=== PATIENT | female | born 1940 | race American Indian/Alaskan Native ===

== ENCOUNTER 2016-12-20 06:10 | Day surgery (SDC) | payer MEDICARE, BC ==
[2016-12-09 09:53] VITALS: BMI 24.7
[2016-12-20 07:01] LABS: INR 1.03 (0.93-1.08); PARTIAL THROMBOPLASTIN TIME 25.9 Seconds (23.7-30.8); PROTHROMBIN TIME 11.1 Seconds (9.9-11.8)
[2016-12-20 07:02] LABS: CALCIUM 10.2 mg/dL (8.4-10.5)
[2016-12-20] MEDS ORDERED: Lidocaine 1% Inj (20ml) ONE ×2 (07:26→08:06)
[2016-12-20] MEDS ORDERED: Bupivacaine 0.5% Inj(30mL) ONE (07:26)
[2016-12-20] MEDS ORDERED: Midazolam 2 MG/2 ML VIAL ONE ×2 (08:00→08:46)
[2016-12-20] MEDS ORDERED: Propofol 10 mg/ml Inj (20 ML) ONE (08:06)
[2016-12-20] MEDS ORDERED: HYDROmorphone 0.5 mg/0.5 ml ISec IVP PRN (09:15)
--- NOTE | 2016-12-20 09:19 | PCM.SURG1 ---
Surgeon's Initial Post Op Note - Surgeon's Notes Surgeon: Misael Tape Folding Machine Operator: Yohana Pre-Operative Diagnosis: Non-functional peritoneal dialysis catheter Operative Findings: Tunneled peritoneal dialysis catheter Post-Operative Diagnosis: same Operation Performed: Removal of peritoneal dialysis catheter Specimen/Specimens Removed: n/a Estimated Blood Loss: EBL {In ML}: 5 Date of Surgery/Procedure: 12/20/16 Time of Surgery/Procedure: 08:00
[2016-12-20 10:15] VITALS: PULSE 70
[2016-12-20 10:35] VITALS: BP 151/78; RESP 18; TEMP 97.6; O2SAT 99
--- NOTE | 2017-01-02 04:11 | OP ---
PROCEDURE DATE: 12/20/2016 PREOPERATIVE DIAGNOSES: Nonfunctioning peritoneal dialysis catheter and end-stage renal disease. POSTOPERATIVE DIAGNOSES: Nonfunctioning peritoneal dialysis catheter and end-stage renal disease. PROCEDURE PERFORMED: Removal of tunneled peritoneal dialysis catheter. SURGEON: Dr. Douglas. MINERAL ENGINEER: Dr. Muller. TYPE OF ANESTHESIA: MAC and local anesthesia. ANESTHESIA ADMINISTERED BY: Dr. Bearden. ESTIMATED BLOOD LOSS: Minimal. SPECIMEN: Gross specimen of peritoneal dialysis catheter. INDICATIONS: The patient is a 76-year-old female who had a peritoneal dialysis catheter placed for replacement of her hemodialysis catheter. However, subsequently, the patient realized that way of dialyzing did not fit her lifestyle and therefore she went back to the hemodialysis. At this point, the peritoneal dialysis catheter is nonfunctional and therefore needed to be removed. DESCRIPTION OF PROCEDURE: The patient was brought to the operating room and placed on operating room table in a supine position. The patient was connected to EKG, blood pressure, and pulse oximetry monitors. The patient then was prepped and draped in the usual sterile fashion and was given MAC anesthesia. First, a standard time-out procedure took place and everybody in the room agreed as the patient's identity, diagnosis, and procedure to be performed. Using lidocaine mixed with Marcaine, the area of the peritoneal dialysis catheter was infiltrated and the incision was made directly overlying those . Once they were identified and detached from the ingrown tissue, the catheter was then carefully mobilized and removed from the intraabdominal cavity and pulled through completely out through the exit site. Once this was done, the wounds were copiously irrigated and there was excellent hemostasis. The wounds were closed in layers using 3-0 Vicryl for deep fat layer and 3-0 Vicryl for the sub-deep dermal layer. The skin itself was closed using subcuticular stitch of 4-0 Monocryl. Sterile Dermabond dressing was applied to both wounds. Patient tolerated procedure well and there were no complications. Patient was awakened and transferred to recovery room for further observation. Bernabe Douglas MD [facility] # [id number]
== END 2016-12-20 13:15 | disposition home or self-care (01) ==
LOC: SDS 06:10
PROVIDERS: ATTEND General Practice
DX: T85.691A Other mechanical complication of intraperitoneal dialysis catheter, initial encounter (principal); Y84.8 Other medical procedures as the cause of abnormal reaction of the patient, or of later complication, without mention of misadventure at the time of the procedure; I12.0 Hypertensive chronic kidney disease with stage 5 chronic kidney disease or end stage renal disease; N18.6 End stage renal disease
CPT/HCPCS: 36415; 49422; 80048; 85610; 85730; J0690; J1170; J2250; J2405; J2704; J2765; J3010

== ENCOUNTER 2018-09-27 13:23 | Inpatient (IN) | payer MEDICARE, BC ==
[2018-09-27 13:36] VITALS: BMI 21.9
[2018-09-27 14:34] LABS: BASO # 0.04 K/mm3 (0.0-2.0); BASO % 0.9 % (0.0-3.0); EOS # 0.1 (0.0-0.7); EOS % 2.4 % (1.5-5.0); LYMPH # 1.3 (1.2-3.4); LYMPH % 29.2 % (22.0-35.0); MEAN CELL VOLUME 98.7 fl (80.0-105.0); MEAN CORPUSCULAR HEMOGLOBIN 32.3 pg (25.0-35.0); MEAN CORPUSCULAR HGB CONC 32.7 g/dl (31.0-37.0); MEAN PLATELET VOLUME 9.4 fl (7.0-11.0); MONO # 0.4 (0.1-0.6); MONO % 8.6 % (1.0-6.0); RBC 3.1 10^6/uL (3.5-6.1); RED CELL DISTRIBUTION WIDTH 13.3 % (11.5-14.5); WHITE BLOOD COUNT 4.6 10^3/uL (4.5-11.0)
[2018-09-27 14:39] LABS: ALB/GLOB RATIO 1.1 (1.1-1.8); ALBUMIN 4.2 g/dL (3.0-4.8); CALCIUM 9.1 mg/dL (8.4-10.5)
[2018-09-27 14:59] LABS: INR 1.1; PARTIAL THROMBOPLASTIN TIME 30.5 Seconds (26.9-38.3); PROTHROMBIN TIME 12.2 SECONDS (9.4-12.5)
--- NOTE | 2018-09-27 15:19 | RAD ---
Date of service: 09/27/2018 HISTORY: coughing up blood COMPARISON: 05/11/2015 TECHNIQUE: Chest PA and lateral views FINDINGS: LUNGS: There is an infiltrate at the right lung base. Minimal infiltrate at the left lung base. PLEURA: No significant pleural effusion identified. No pneumothorax apparent. CARDIOVASCULAR: No aortic atherosclerotic calcification present. Normal cardiac size. No pulmonary vascular congestion. OSSEOUS STRUCTURES: No significant abnormalities. VISUALIZED UPPER ABDOMEN: Normal. OTHER FINDINGS: None. IMPRESSION: There is an infiltrate at the right lung base. Minimal infiltrate at the left lung base.
[2018-09-27] MEDS ORDERED: cefTRIAXone 1 gm 1 GM/100 ML BAG IVPB STA (15:42)
[2018-09-27] MEDS ORDERED: Azithromycin 500MG/NS 250ml 500 MG/250 ML BAG IVPB STA (15:42)
--- NOTE | 2018-09-27 16:05 | ED PDOC ---
Arrival/HPI - General Chief Complaint: Cough, Cold, Congestion Historian: Patient, Family - History of Present Illness Narrative History of Present Illness (Text): 09/27/18 16:02 Patient is a 77 yo female past medical history of ESRD on dialysis monday, w , monday, complains of coughing up blood for past two weeks. States coughing is "tinged" with blood, reports worse at night and associated with right sided chest/back pain that is worse with movements. No rash. Reports some shortness of breath at night worse over past two weeks. Denies abdominal pain. Denies hematemesis or vomiting. Past Medical History - Infectious Disease Hx of Infectious Diseases: None - Cardiac Hx Hypertension: Yes Hx Pacemaker: No - Pulmonary Hx Respiratory Disorders: Yes - Neurological Hx Paralysis: No - HEENT Hx HEENT Disorder: Yes Hx Cataracts: Yes (right eye) - Renal Hx Renal Disorder: Yes Hx Dialysis: Yes ([facility]) Type of Dialysis Access: R AV Fistula Date of Last Dialysis Treatment: 09/26/18 Hx Renal Failure: Yes - Endocrine/Metabolic Hx Endocrine Disorders: No - Hematological/Oncological Hx Blood Transfusions: No Hx Blood Transfusion Reaction: No - Integumentary Hx Dermatological Disorder: No - Musculoskeletal/Rheumatological Hx Musculoskeletal Disorders: No - Gastrointestinal Hx Gastrointestinal Disorders: No - Genitourinary/Gynecological Hx Genitourinary Disorders: No - Psychiatric Hx Emotional Abuse: No Hx Physical Abuse: No Hx Substance Use: No - Past Surgical History Past Surgical History: Non-Contributing - Surgical History Other/Comment: R AV Fistula for HD - Anesthesia Hx Anesthesia: Yes Hx Anesthesia Reactions: No Hx Malignant Hyperthermia: No - Suicidal Assessment Feels Threatened In Home Enviroment: No Family/Social History Smoking Status: Never Smoked Hx Alcohol Use: No Hx Substance Use: No Hx Substance Use Treatment: No Allergies/Home Meds Allergies/Adverse Reactions: Allergies peanut Allergy (Severe, Verified 07/08/15 07:34) ANAPHYLAXIS Home Medications: Home Meds Medication Instructions Recorded Confirmed amLODIPine [Norvasc] 40 mg PO DAILY 10/21/14 09/27/18 Calcium Acetate [Phoslo] 667 mg PO WM 07/08/15 09/27/18 Multivit-Min/FA/Lycopen/Lutein 1 each PO DAILY 07/08/15 09/27/18 [Centrum Silver Tablet] Clopidogrel [Plavix] 75 mg PO DAILY 12/09/16 09/27/18 Azilsartan Medoxomil [Edarbi] 40 mg PO DAILY 09/27/18 09/27/18 cloNIDine [Catapres] 1 tab PO DAILY 09/27/18 09/27/18 Review of Systems - Review of Systems Constitutional: Fatigue. absent: Fevers Eyes: absent: Vision Changes ENT: absent: Hearing Changes Respiratory: SOB, Cough, Sputum. absent: Wheezing Cardiovascular: SALEH. absent: Palpitations, Edema Gastrointestinal: absent: Abdominal Pain, Hematochezia, Hematemesis Genitourinary Female: absent: Hematuria Musculoskeletal: Back Pain. absent: Neck Pain Skin: absent: Rash Neurological: absent: Headache, Dizziness Endocrine: absent: Polyuria Hemo/Lymphatic: Easy Bleeding Physical Exam Vital Signs Reviewed: Yes Vital Signs Pulse Resp BP Pulse Ox 09/27/18 14:29 77 18 151/77 H 97 Temperature: Afebrile Appearance: Positive for: Non-Toxic Pain Distress: Mild Mental Status: Positive for: Alert and Oriented X 3 - Systems Exam Head: Present: Atraumatic Pupils: Present: PERRL Extroacular Muscles: Present: EOMI Mouth: Present: Moist Mucous Membranes Pharnyx: No: ERYTHEMA Nose (Internal): Present: Normal Inspection Neck: Present: Normal Range of Motion. No: Meningeal Signs Respiratory/Chest: Present: Rhonchi (right base). No: Respiratory Distress, Wheezes Cardiovascular: Present: Regular Rate and Rhythm, Murmurs (systolic murmur) Abdomen: No: Tenderness Back: Present: Other (right sided rib tenderness) Upper Extremity: No: Cyanosis, Edema Lower Extremity: No: Edema, CALF TENDERNESS Neurological: Present: Motor Func Grossly Intact, Normal Sensory Function Skin: Present: Warm Psychiatric: Present: Alert, Normal Insight, Normal Concentration Medical Decision Making ED Course and Treatment: 09/27/18 19:32 Patient is resting comfortably in the ED. She states symptoms for several weeks, he denies any chest pain with walking or exertion, but states at night she coughs up blood and feels a "tightness when I cough". She denies exertional chest tightness or shortness of breath. CXR reveals possible right lower lobe infiltrate. Currently afebrile with unremarkable wbc, no hx of fevers or chills. No resp distress noted. Ddx reviewed with patient. EKG reveals lateral st changes not noted on prior available EKG, although she denies exertional chest pain. Card isos added to lab evaluation. She has had no chest pain or tightness while in ED although will admit to telemetry bed based on EKG findings as well as hx of tightness at night, although with coughing. Currently no respiratory distress. IV antibiotics initiated, although differential reviewed with patient. 09/27/18 20:52 Troponin elevated. Although patient is dialysis patient, there are EKG changes and will consider nonstemi. She continues to have no chest pain here in the ED. Will consult cardiology, admit to telemetry. As patient with hemoptysis will discuss anticoagulation with admitting team. Dr. Barbour updated with troponin. I have discussed case with fire eater Dr. Alexandra, for consultation given her risk factors. Ddx valvular disease, myocardial infarction, pneumonia, lung disease. Patient at risk for anticoagualtion given her hemoptysis, although at this time protecting airway with no respiratory distress. 09/27/18 22:05 - Lab Interpretations Lab Results: PT 12.2 SECONDS (9.4-12.5) 09/27/18 14:00 INR 1.10 09/27/18 14:00 APTT 30.5 Seconds (26.9-38.3) 09/27/18 14:00 NT-Pro-B Natriuret Pep 319770 pg/mL (0-450) H 09/27/18 14:00 Total Bilirubin 0.4 mg/dL (0.2-1.3) 09/27/18 14:00 AST 31 U/L (14-36) 09/27/18 14:00 ALT 10 U/L (7-56) 09/27/18 14:00 Alkaline Phosphatase 127 U/L (38-126) H 09/27/18 14:00 Total Protein 8.0 g/dL (5.8-8.3) 09/27/18 14:00 Albumin 4.2 g/dL (3.0-4.8) 09/27/18 14:00 Globulin 3.8 gm/dL 09/27/18 14:00 Albumin/Globulin Ratio 1.1 (1.1-1.8) 09/27/18 14:00 - RAD Interpretation Narrative RAD Interpretations (Text): 09/27/18 15:15 Chest X-ray reviewed by Dr. Jonel Person MD, shows: There is an infiltrate at the right lung base. Minimal infiltrate at the left lung base. Radiology Orders: 09/27/18 13:56 CHEST TWO VIEWS (PA/LAT) [RAD] [employer] Account Executive: Radiologist - EKG Interpretation EKG Interpretation (Text): 09/27/18 16:05 EKG at 1432 normal sinus rhythm with first degree av block, latera st, t wave abnormality Interpreted by ED Physician: Yes Type: 12 lead EKG - Medication Orders Current Medication Orders: Ceftriaxone Sodium (Rocephin 1 Gram Ivpb) 1 gm in 100 mls @ 200 mls/hr IVPB ONCE STA; Protocol Stop: 09/27/18 16:11 Azithromycin (Zithromax 500mg In Ns) 500 mg in 250 mls @ 166.667 mls/hr IVPB STAT STA; Protocol Stop: 09/27/18 17:11 Disposition/Present on Arrival - Present on Arrival Any Indicators Present on Arrival: No History of DVT/PE: No History of Uncontrolled Diabetes: No Urinary Catheter: No History of Decub. Ulcer: No History Surgical Site Infection Following: None - Disposition Have Diagnosis and Disposition been Completed?: Yes Diagnosis: Hemoptysis, Abnormal EKG, Abnormal chest xray, Pneumonia, Elevated troponin Disposition: HOSPITALIZED Disposition Time: 16:45 Patient Plan: Admission Patient Problems: Current Active Problems Problem Status Onset Abnormal EKG Acute Abnormal chest xray Acute Elevated troponin Acute Hemoptysis Acute Pneumonia Acute Condition: FAIR
--- NOTE | 2018-09-27 19:01 | CARD ---
APPROVED REPORT Date of service: 09/27/2018 EKG Measurement Heart [id number] <Conclusion> Sinus rhythm with 1st degree AV block Moderate voltage criteria for LVH, may be normal variant ST & T wave abnormality, consider lateral ischemia Prolonged QT Abnormal ECG
[2018-09-27 20:41] LABS: TROPONIN I 0.59 ng/mL
--- NOTE | 2018-09-27 22:30 | CP.PCM.CON ---
<Jay Turk - Last Filed: 09/27/18 22:24> History of Present Illness - History of Present Illness History of Present Illness: ICU Consult Note for Dr. Alexandra CC: Hemoptysis and dypsnea Patient is a 77 yo F with PMH of ESRD on HD (MWF), HTN, asthma, and CVA presents to ED complaining of blood when coughing for the past 2-3 weeks. Patient states that the hemoptysis only occurs at night prior to going to sleep and has been constant over this time period. Patient states that the cough does not generally wake her up at night. Patient reports increased dyspnea over the past 2-3 weeks as well. Patient states that her dypsnea is sometimes positional. Patient states that she has gone to HD consistently and is compliant with all of her medications. Patient denies any sick contacts, recent travel, CP, n/v/d, abdominal pain, fever, chills, JACKSON, or dizziness. PMH: ESRD on HD (MWF), HTN, asthma, CVA Surg: Peritoneal dialysis, RUE AVF All: Peanuts SH: Denied EtOH, tobacco, and illicit drug use FHx: DM Review of Systems - Review of Systems All systems: reviewed and no additional remarkable complaints except (12 point R OS reviewed and is negative other than what is stated in HPI.) Past Patient History - Infectious Disease Hx of Infectious Diseases: None - Past Social History Smoking Status: Never Smoked - CARDIAC Hx Hypertension: Yes Hx Pacemaker: No - PULMONARY Hx Respiratory Disorders: Yes - NEUROLOGICAL Hx Paralysis: No - HEENT Hx HEENT Problems: Yes Hx Cataracts: Yes (right eye) - RENAL Hx Chronic Kidney Disease: Yes Hx Dialysis: Yes ([facility]) Type of Dialysis Access: R AV Fistula Date of Last Dialysis Treatment: 09/26/18 Hx Renal Failure: Yes - ENDOCRINE/METABOLIC Hx Endocrine Disorders: No - HEMATOLOGICAL/ONCOLOGICAL Hx Blood Transfusions: No Hx Blood Transfusion Reaction: No - INTEGUMENTARY Hx Dermatological Problems: No - MUSCULOSKELETAL/RHEUMATOLOGICAL Hx Musculoskeletal Disorders: No - GASTROINTESTINAL Hx Gastrointestinal Disorders: No - GENITOURINARY/GYNECOLOGICAL Hx Genitourinary Disorders: No - PSYCHIATRIC Hx Emotional Abuse: No Hx Physical Abuse: No Hx Substance Use: No - SURGICAL HISTORY Other/Comment: R AV Fistula for HD - ANESTHESIA Hx Anesthesia: Yes Hx Anesthesia Reactions: No Hx Malignant Hyperthermia: No Meds Allergies/Adverse Reactions: Allergies Allergy/AdvReac Type Severity Reaction Status Date / Time peanut Allergy Severe ANAPHYLAXIS Verified 07/08/15 07:34 - Medications Medications: Current Medications Amlodipine Besylate (Norvasc) 40 mg PO DAILY MARCIA Calcium Acetate (Phoslo) 667 mg PO WM MARCIA (Azilsartan Medoxomil [Edarbi] 40 Mg) 40 mg PO DAILY MARCIA Physical Exam - Constitutional Appears: No Acute Distress - Head Exam Head Exam: NORMAL INSPECTION - Eye Exam Eye Exam: EOMI, Normal appearance, PERRL - ENT Exam ENT Exam: Mucous Membranes Moist, Normal Exam - Neck Exam Neck exam: Positive for: Normal Inspection - Respiratory Exam Respiratory Exam: Rhonchi. absent: Decreased Breath Sounds, Rales, Wheezes, Respiratory Distress - Cardiovascular Exam Cardiovascular Exam: RRR, +S1, +S2. absent: Diastolic murmur, Gallop, Rubs, Systolic Murmur - GI/Abdominal Exam GI & Abdominal Exam: Soft. absent: Distended, Guarding, Rebound, Tenderness - Extremities Exam Extremities exam: Positive for: normal inspection - Back Exam Back exam: NORMAL INSPECTION - Neurological Exam Neurological exam: Alert, CN II-XII Intact, Oriented x3 - Psychiatric Exam Psychiatric exam: Normal Affect, Normal Mood - Skin Skin Exam: Dry, Intact, Normal Color, Warm Results - Vital Signs Recent Vital Signs: Last Vital Signs Temp 97.8 F 09/27/18 19:45 Pulse 85 09/27/18 21:47 Resp 18 09/27/18 21:47 BP 159/88 H 09/27/18 21:47 Pulse Ox 94 L 09/27/18 21:47 - Labs Result Diagrams: 09/27/18 14:00 09/27/18 14:00 Labs: Laboratory Results - last 24 hr 09/27/18 09/27/18 09/27/18 14:00 14:00 14:00 WBC 4.6 RBC 3.10 L Hgb 10.0 L Hct 30.6 L MCV 98.7 MCH 32.3 MCHC 32.7 RDW 13.3 Plt Count 228 MPV 9.4 Neut % (Auto) 58.9 Lymph % (Auto) 29.2 Irwin % (Auto) 8.6 H Eos % (Auto) 2.4 Baso % (Auto) 0.9 Lymph # (Auto) 1.3 Irwin # (Auto) 0.4 Eos # (Auto) 0.1 Baso # (Auto) 0.04 Absolute Neuts (auto) 2.69 PT 12.2 INR 1.10 APTT 30.5 Sodium 135 Potassium 4.1 Chloride 91 L Carbon Dioxide 32 Anion Gap 17 BUN 47 H Creatinine 7.2 H Est GFR ( Amer) 7 Est GFR (Non-Af Amer) 6 Random Glucose 90 Calcium 9.1 Total Bilirubin 0.4 AST 31 ALT 10 Alkaline Phosphatase 127 H Lactate Dehydrogenase Total Creatine Kinase Troponin I NT-Pro-B Natriuret Pep [id number] H Total Protein 8.0 Albumin 4.2 Globulin 3.8 Albumin/Globulin Ratio 1.1 Influenza Typ A,B (EIA) 09/27/18 09/27/18 14:40 16:40 WBC RBC Hgb Hct MCV MCH MCHC RDW Plt Count MPV Neut % (Auto) Lymph % (Auto) Irwin % (Auto) Eos % (Auto) Baso % (Auto) Lymph # (Auto) Irwin # (Auto) Eos # (Auto) Baso # (Auto) Absolute Neuts (auto) PT INR APTT Sodium Potassium Chloride Carbon Dioxide Anion Gap BUN Creatinine Est GFR ( Amer) Est GFR (Non-Af Amer) Random Glucose Calcium Total Bilirubin AST ALT Alkaline Phosphatase Lactate Dehydrogenase 526 Total Creatine Kinase 87 Troponin I 0.59 H* D NT-Pro-B Natriuret Pep Total Protein Albumin Globulin Albumin/Globulin Ratio Influenza Typ A,B (EIA) Negative for flu a/b Assessment & Plan - Assessment and Plan (Free Text) Assessment: 77 yo F with PMH ESRD on HD (MWF), HTN, asthma, and CVA [place] [facility] [place] and dyspnea. Patient was subsequently found to have an significantly elevated BNP and mildly elevated troponin. Patient denies any chest pain, thus elevated troponin could due to her ESRD. However, EKG showed T-wave inversions in the lateral leads concerning for NSTEMI. Overall, patient is hemodynamically stable, appears euvolemic, and will not require ICU care at this time. Patient can be admitted and monitored on telemetry. 1. NSTEMI 2. ESRD on HD 3. Elevated BNP 4. HTN Plan: - Recommend telemetry - Hold anticoagulation and antiplatelets for now due to hemoptysis - Trend cardiac enzymes - Recommend Cardiology, Neurology and Pulm consult - HD MWF - Cont Phos binder - Cont home antihypertensives - CXR showed b/l infiltrates, would treat for HCAP in HD patient - Blood cx - Cont supplemental O2 - Please reconsult as needed Patient discussed in detail with Dr. Alexandra. Horacio Tukr, DO PGY2 <Ihsan Alexandra - Last Filed: 09/28/18 20:19> Meds - Medications Medications: Current Medications Albuterol/Ipratropium (Duoneb 3 Mg/0.5 Mg (3 Ml) Ud) 3 ml IH [id number] MARCIA Last Admin: 09/28/18 14:43 Dose: Not Given Albuterol/Ipratropium (Duoneb 3 Mg/0.5 Mg (3 Ml) Ud) 3 ml IH Q2H PRN PRN Reason: Shortness of Breath Amlodipine Besylate (Norvasc) 10 mg PO DAILY [facility] Last Admin: 09/28/18 18:37 Dose: 10 mg Budesonide (Pulmicort Respules) 0.5 mg IH [id number] MARCIA Last Admin: 09/28/18 08:53 Dose: 0.5 mg Calcium Acetate (Phoslo) 667 mg PO WM MARCIA Last Admin: 09/28/18 18:37 Dose: 667 mg Doxycycline Hyclate 100 mg/ (Sodium Chloride) 100 mls @ 100 mls/hr IVPB Q12 MARCIA; Protocol Last Admin: 09/28/18 10:24 Dose: Not Given Meropenem/Sodium Chloride (Merrem Iv 500 Mg/Ns 50 Ml) 500 mg in 50 mls @ 100 mls/hr IVPB 1600 MARCIA; Protocol Stop: 10/05/18 16:01 Last Admin: 09/28/18 18:37 Dose: 100 mls/hr Methylprednisolone (Solu-Medrol) 30 mg IVP Q12 MARCIA Last Admin: 09/28/18 10:59 Dose: 30 mg Metoprolol Tartrate (Lopressor) 25 mg PO Q12 MARCIA Last Admin: 09/28/18 18:37 Dose: 25 mg (Azilsartan Medoxomil [Edarbi] 40 Mg) 40 mg PO DAILY [facility] Last Admin: 09/28/18 10:26 Dose: Not Given Results - Vital Signs Recent Vital Signs: Last Vital Signs Temp 98.1 F 09/28/18 12:00 Pulse 84 04/19/19 18:37 Resp 19 09/28/18 12:00 BP 160/75 H 09/28/18 18:37 Pulse Ox 96 09/28/18 06:00 - Labs Result Diagrams: 09/27/18 14:00 09/27/18 14:00 Labs: Laboratory Results - last 24 hr 09/27/18 09/28/18 09/28/18 14:40 06:10 09:10 Phosphorus Troponin I 0.59 H* D 0.45 H* D Procalcitonin 0.39 09/28/18 16:15 Phosphorus 3.1 Troponin I Procalcitonin Attending/Attestation - Attestation I have personally seen and examined this patient.: Yes I have fully participated in the care of the patient.: Yes I have reviewed all pertinent clinical information: Yes Notes (Text): 09/28/18 20:18 seen and examined. Discussed with resident. A&P as above. Pt. ADMITTED noncompliance with PLAVIX. Reports symptoms of Chest tightness, PND, orthopnea and hemoptysis. needs cardiology and pulmonology consults.
[2018-09-28] MEDS ORDERED: Albuterol-Ipratrop 3 mg / 0.5 (3 ml) UD IH PRN (07:07)
[2018-09-28] MEDS: Albuterol-Ipratrop 3 mg / 0.5 (3 ml) UD IH SCH ×3 (08:53→20:28)
[2018-09-28] MEDS: Budesonide 0.5 mg/2 ml Inhal Susp UD IH SCH ×2 (08:53→20:28)
[2018-09-28] MEDS ORDERED: Vancomycin 2 GM in Sodium Chloride 0.9% 500 ML IVPB ONE (09:09)
--- NOTE | 2018-09-28 09:56 | CT ---
Date of service: 09/28/2018 PROCEDURE: CT Chest without contrast HISTORY: PNA, R/O cavitation, R/O mass COMPARISON: None available. TECHNIQUE: Contiguous axial images were obtained through the chest without intravenous contrast enhancement. Sagittal and coronal reconstructions were performed. Radiation dose: Total exam DLP = 188.32 mGy-cm. This CT exam was performed using one or more of the following dose reduction techniques: Automated exposure control, adjustment of the mA and/or kV according to patient size, and/or use of iterative reconstruction technique. FINDINGS: LUNGS: There is an extensive alveolar infiltrate in the right lower lobe. Smaller infiltrates are seen in the posterior inferior segments of the left upper lobe and right upper lobe. There is also a small infiltrate in the left lower lobe. MEDIASTINUM: Unremarkable thoracic aorta. No aneurysm. Normal sized heart. Main pulmonary artery unremarkable. No vascular congestion. No lymphadenopathy. Aortic calcification PLEURA: Small right effusion BONES: No fracture. No destructive lesion. UPPER ABDOMEN: Grossly unremarkable. OTHER FINDINGS: None. IMPRESSION: Multi focal pneumonia most severe in the right lower lobe. Small right effusion No evidence of lung mass or cavity
[2018-09-28] MEDS ORDERED: MEROPENEM 500 MG in NS 500 MG/50 ML BAG IVPB SCH (10:00)
--- NOTE | 2018-09-28 10:45 | CP.PCM.HP ---
<Souleymane Bae - Last Filed: 09/28/18 10:48> History of Present Illness - History of Present Illness History of Present Illness: H&P for Dr. Barbour Service CC: Hemoptysis and dypsnea 77F with PMHx of ESRD on HD (MWF), HTN, Hep C, anemia, cataracts, asthma, and CVA presents to ED complaining of roughly 3 weeks of hemoptysis. Patient stated that she began having dark red blood initially, however became pink and blood- tinged in nature. Patient denied any recent travels, or sick contacts. She noted that her symptoms arise mostly at night while preparing for sleep.Patient states that she also has complaints of dypsnea upon exertion and is sometimes positional. Patient states that she has gone to HD consistently and is compliant with all of her medications. Patient was seen and examined. Patient found to be resting comfortably without chest pain at this time, however had symptoms while in ED. Patient denied fever, diaphoresis, lightheadedness, confusion, abdominal pains, nausea, vomiting, diarrhea, constipation or dysuria. PMHx: ESRD on HD (MWF), HTN, Hep C, Cataracts, anemia, asthma, CVA PSHx: RUE AVF SHx: Denied EtOH, tobacco, and illicit drug use FHx: DM Allergies: Peanuts Meds: MAR reviewed Present on Admission - Present on Admission Any Indicators Present on Admission: No Review of Systems - Review of Systems Review of Systems: as per HPI otherwise negative Past Patient History - Infectious Disease Hx of Infectious Diseases: None - Past Social History Smoking Status: Never Smoked - CARDIAC Hx Cardiac Disorders: Yes Hx Angina: No Hx Cardia Arrhythmia: No Hx Circulatory Problems: No Hx Congestive Heart Failure: No Hx Heart Murmur: No Hx Heart Transplant: No Hx Hypercholesterolemia: No Hx Hypertension: Yes Hx Internal Defibrillator: No Hx Mitral Valve Prolapse: No Hx Pacemaker: No Hx Peripheral Edema: No Hx Peripheral Vascular Disease: No - PULMONARY Hx Respiratory Disorders: Yes Hx Asthma: Yes Hx Bronchitis: Yes Hx Chronic Obstructive Pulmonary Disease (COPD): No Hx Emphysema: No Hx Pneumonia: Yes Hx Respiratory Aspiration: No Hx Respiratory Tract Infection: No Hx Sleep Apnea: No Hx Tuberculosis: No - NEUROLOGICAL Hx Neurological Disorder: No Hx Alzheimer's Disease: No HX Cerebrovascular Accident: No Hx Dementia: No Hx Dizziness: No Hx Meningitis: No Hx Migraine: No Hx Parkinson's Disease: No Hx Seizures: No Hx Transient Ischemic Attacks (TIA): No - HEENT Hx HEENT Problems: Yes (wearing glasses) Hx Blind: No Hx Cataracts: No Hx Deafness: No Hx Difficulty Chewing: No Hx Epistaxis: No Hx Glaucoma: No Hx Macular Degeneration: No - RENAL Hx Chronic Kidney Disease: Yes Hx Dialysis: Yes Hx Kidney Stones: No Hx Neurogenic Bladder: No Hx Pyelonephritis: No Hx Renal (Kidney) Cancer: No Hx Renal Failure: Yes - ENDOCRINE/METABOLIC Hx Endocrine Disorders: No Hx Adrenal Cancer: No Hx Diabetes Insipidus: No Hx Diabetes Mellitus Type 1: No Hx Diabetes Mellitus Type 2: No Hx Hyperthyroidism: No Hx Hypothyroidism: No Hx Systemic Lupus Erythematosus: No - HEMATOLOGICAL/ONCOLOGICAL Hx Blood Disorders: No Hx AIDS: No Hx Anemia: No Hx Cancer: No Hx Chemotherapy: No Hx Cirrhosis: No Hx Hemophilia: No Hx Hepatitis A: No Hx Hepatitis B: No Hx Hepatitis C: No Hx Human Immunodeficiency Virus (HIV): No Hx Metastesis: No Hx Shingles: No Hx Sickle Cell Disease: No Hx Unexplained Bleeding: No - INTEGUMENTARY Hx Dermatological Problems: No Hx Basil Cell: No Hx Eczema: No Hx Melanoma: No Hx Psoriasis: No Hx Squamous Cell: No - MUSCULOSKELETAL/RHEUMATOLOGICAL Hx Musculoskeletal Disorders: Yes Hx Arthritis: No Hx Back Pain: No Hx Degenerative Joint Disease: No Hx Falls: Yes Hx Fractures: No Hx Gout: No Hx Herniated Disk: No Hx Myasthenia Gravis: No Hx Osteoarthritis: No Hx Osteomyelitis: No Hx Osteoporosis: No Hx Rhabdomyolysis: No Hx Spinal Stenosis: No Hx Unsteady Gait: Yes - GASTROINTESTINAL Hx Gastrointestinal Disorders: No Hx Colostomy: No Hx Crohn's Disease: No Hx Diverticulitis: No Hx Gall Bladder Disease: No Hx Gastroesophageal Reflux: No Hx Ileostomy: No Hx Liver Failure: No Hx Pancreatitis: No HX Swallowing Problems: No Hx Ulcer: No - GENITOURINARY/GYNECOLOGICAL Hx Genitourinary Disorders: No Hx Hematuria: No Hx Incontinence: No Hx Sexually Transmitted Disorders: No Hx Urinary Tract Infection: No - PSYCHIATRIC Hx Psychophysiologic Disorder: No Hx Anxiety: No Hx Bipolar Disorder: No Hx Depression: No Hx Emotional Abuse: No Hx Hallucinations: No Hx Panic Symptoms: No Hx Paranoia: No Hx Post Traumatic Stress Disorder: No Hx Psychosis: No Hx Physical Abuse: No Hx Schizophrenia: No Hx Sexual Abuse: No Hx Substance Use: No - SURGICAL HISTORY Hx Surgeries: No Hx Amputation: No Hx Appendectomy: No Hx Cardiac Catheterization: No Hx Cholecystectomy: No Hx Coronary Stent: No Hx Gastric Bypass Surgery: No Hx Hysterectomy: No Hx Joint Replacement: No Hx Kidney Transplant: No Hx Liver Transplant: No Hx Mastectomy: No Hx Musculoskeletal Surgery: No Hx Open Heart Surgery: No Hx Orthopedic Surgery: No Hx Splenectomy: No Hx Valve Replacement: No - ANESTHESIA Hx Anesthesia: Yes Hx Anesthesia Reactions: No Hx Malignant Hyperthermia: No Meds Allergies/Adverse Reactions: Allergies Allergy/AdvReac Type Severity Reaction Status Date / Time peanut Allergy Severe ANAPHYLAXIS Verified 07/08/15 07:34 Physical Exam - Constitutional Appears: No Acute Distress - Head Exam Head Exam: ATRAUMATIC, NORMAL INSPECTION, NORMOCEPHALIC - Eye Exam Eye Exam: EOMI, Normal appearance, PERRL Pupil Exam: NORMAL ACCOMODATION, PERRL - ENT Exam ENT Exam: Mucous Membranes Moist, Normal Exam - Respiratory Exam Respiratory Exam: Decreased Breath Sounds, NORMAL BREATHING PATTERN. absent: Rales, Rhonchi, Wheezes - Cardiovascular Exam Cardiovascular Exam: REGULAR RHYTHM, +S1, +S2 - GI/Abdominal Exam GI & Abdominal Exam: Normal Bowel Sounds, Soft. absent: Tenderness - Extremities Exam Extremities exam: Positive for: normal inspection - Neurological Exam Neurological exam: Alert, CN II-XII Intact, Normal Gait, Oriented x3, Reflexes Normal - Psychiatric Exam Psychiatric exam: Normal Affect, Normal Mood - Skin Skin Exam: Dry, Intact, Normal Color, Warm Results - Vital Signs Recent Vital Signs: Last Vital Signs Temp 98.4 F 09/28/18 06:00 Pulse 75 09/28/18 09:22 Resp 18 09/28/18 06:00 BP 144/82 09/28/18 06:00 Pulse Ox 96 09/28/18 06:00 - Labs Result Diagrams: 09/27/18 14:00 09/27/18 14:00 Labs: Laboratory Results - last 24 hr 09/27/18 09/27/18 09/27/18 14:00 14:00 14:00 WBC 4.6 RBC 3.10 L Hgb 10.0 L Hct 30.6 L MCV 98.7 MCH 32.3 MCHC 32.7 RDW 13.3 Plt Count 228 MPV 9.4 Neut % (Auto) 58.9 Lymph % (Auto) 29.2 [place] % (Auto) 8.6 H Eos % (Auto) 2.4 Baso % (Auto) 0.9 Lymph # (Auto) 1.3 [place] # (Auto) 0.4 Eos # (Auto) 0.1 Baso # (Auto) 0.04 Absolute Neuts (auto) 2.69 PT 12.2 INR 1.10 APTT 30.5 Sodium 135 Potassium 4.1 Chloride 91 L Carbon Dioxide 32 Anion Gap 17 BUN 47 H Creatinine 7.2 H Est GFR ( Amer) 7 Est GFR (Non-Af Amer) 6 Random Glucose 90 Calcium 9.1 Total Bilirubin 0.4 AST 31 ALT 10 Alkaline Phosphatase 127 H Lactate Dehydrogenase Total Creatine Kinase Troponin I NT-Pro-B Natriuret Pep 778271 H Total Protein 8.0 Albumin 4.2 Globulin 3.8 Albumin/Globulin Ratio 1.1 Influenza Typ A,B (EIA) 09/27/18 09/27/18 09/28/18 14:40 16:40 06:10 WBC RBC Hgb Hct MCV MCH MCHC RDW Plt Count MPV Neut % (Auto) Lymph % (Auto) [place] % (Auto) Eos % (Auto) Baso % (Auto) Lymph # (Auto) [place] # (Auto) Eos # (Auto) Baso # (Auto) Absolute Neuts (auto) PT INR APTT Sodium Potassium Chloride Carbon Dioxide Anion Gap BUN Creatinine Est GFR ( Amer) Est GFR (Non-Af Amer) Random Glucose Calcium Total Bilirubin AST ALT Alkaline Phosphatase Lactate Dehydrogenase 526 Total Creatine Kinase 87 Troponin I 0.59 H* D 0.45 H* D NT-Pro-B Natriuret Pep Total Protein Albumin Globulin Albumin/Globulin Ratio Influenza Typ A,B (EIA) Negative for flu a/b Assessment & Plan - Assessment and Plan (Free Text) Assessment: 1. HCAP 2. NSTEMI 3. Hemoptysis & dyspnea 4. ESRD on HD (MWF) 5. HTN 6. dyslipidemia 7. cataracts 8. CVA 9. 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 Hep C Plan: Patient is lying comfortably. She is on doxycycline, merrem and vancomycin as per ID, Dr. Wade. CXR reveals possible right lower lobe infiltrate. Currently afebrile with unremarkable wbc, no hx of fevers or chills, will follow up pct, [place] ag, sputum cx. Patient EKG reviewed, T waves inversion noted, positive trops vs baseline and downtrending likely NSTEMI, no acute intervention in setting of hemoptysis as per Cardiology, Dr. Blevins, also for Echo today. Patient started on metoprolol 25mg BID. Patient on duonebs, pulmicort, and solumedrol for dyspnea. FU hemoptysis with Chest CT to r/o mass or cavitary lesion. Patient to continue on her HD schedule today. Will monitor electrolytes, continue with phoslo and . Patient on norvasc and edarbi for HTN. No statin benefit in ESRD pt on HD. Continue a renal diet. Asa held. PT eval and treat. <Brodie Barbour S - Last Filed: 09/28/18 15:22> Results - Vital Signs Recent Vital Signs: Last Vital Signs Temp 98.1 F 09/28/18 12:00 Pulse 80 09/28/18 12:00 Resp 19 09/28/18 12:00 BP 172/79 H 09/28/18 12:00 Pulse Ox 96 09/28/18 06:00 - Labs Result Diagrams: 09/27/18 14:00 09/27/18 14:00 Labs: Laboratory Results - last 24 hr 09/27/18 09/27/18 09/28/18 14:40 16:40 06:10 Lactate Dehydrogenase 526 Total Creatine Kinase 87 Troponin I 0.59 H* D 0.45 H* D Influenza Typ A,B (EIA) Negative for flu a/b Assessment & Plan - Assessment and Plan (Free Text) Assessment: Pt seen and examined by me. I have reviewed the note of the medical hospital sales and I agree with it. I have discussed the assessment and plan with the resident. I have reviewed the medications and the last labs.
--- NOTE | 2018-09-28 10:45 | CP.PCM.APN ---
Subjective - Date & Time of Evaluation Date of Evaluation: 09/28/18 Time of Evaluation: 10:30 - Subjective Subjective: pt seen and examined a t bedside, pt on 02 but visible winded getting to bed from stretcher pt states she is awaiting HD pt reports SOB, SALEH, no CP Review of Systems - Respiratory Respiratory: Dyspnea on Exertion Objective - Vital Signs/Intake and Output Vital Signs (last 24 hours): Temp Pulse Resp BP Pulse Ox 98.4 F 75 18 144/82 96 09/28/18 06:00 09/28/18 09:22 09/28/18 06:00 09/28/18 06:00 09/28/18 06:00 Intake and Output: 09/28/18 09/28/18 06:59 18:59 Intake Total 400 Balance 400 - Medications Medications: Current Medications Albuterol/Ipratropium (Duoneb 3 Mg/0.5 Mg (3 Ml) Ud) 3 ml IH [id number] MARCIA Last Admin: 09/28/18 08:53 Dose: 3 ml Albuterol/Ipratropium (Duoneb 3 Mg/0.5 Mg (3 Ml) Ud) 3 ml IH Q2H PRN PRN Reason: Shortness of Breath Amlodipine Besylate (Norvasc) 10 mg PO DAILY MARCIA Budesonide (Pulmicort Respules) 0.5 mg IH [id number] MARCIA Last Admin: 09/28/18 08:53 Dose: 0.5 mg Calcium Acetate (Phoslo) 667 mg PO WM MARCIA Doxycycline Hyclate 100 mg/ (Sodium Chloride) 100 mls @ 100 mls/hr IVPB Q12 MARCIA; Protocol Meropenem/Sodium Chloride (Merrem Iv 500 Mg/Ns 50 Ml) 500 mg in 50 mls @ 100 mls/hr IVPB Q12 MARCIA; Protocol Stop: 10/05/18 10:01 Vancomycin HCl 2 gm/ Sodium (Chloride) 500 mls @ 170 mls/hr IVPB ONCE ONE; Protocol Stop: 09/28/18 12:05 Methylprednisolone (Solu-Medrol) 30 mg IVP Q12 MARCIA Metoprolol Tartrate (Lopressor) 25 mg PO Q12 MARCIA (Azilsartan Medoxomil [Edarbi] 40 Mg) 40 mg PO DAILY MARCIA - Labs Labs: 09/27/18 14:00 09/27/18 14:00 PT 12.2 SECONDS (9.4-12.5) 09/27/18 14:00 INR 1.10 09/27/18 14:00 APTT 30.5 Seconds (26.9-38.3) 09/27/18 14:00
[2018-09-28] MEDS: MethylPREDNISolone 40 mg Vial IVP SCH ×2 (10:59→22:43)
--- NOTE | 2018-09-28 11:29 | CON ---
DATE OF CONSULTATION: 09/28/2018 REQUESTING PHYSICIAN: Dr. Barbour. REASON FOR CONSULTATION: Dyspnea, elevated troponin, abnormal electrocardiogram. HISTORY: This is a 77-year-old woman with a history of hypertension and chronic renal failure, maintained on hemodialysis, who has been coughing for the past several weeks. She recently had evidence of blood-streaked sputum. She also had retrosternal chest discomfort, which occurs most often when coughing. She also describes a tightness in her chest. Her electrocardiogram is abnormal and troponin is mildly elevated. Cardiac evaluation was requested. She denies any prior cardiac history. She has been evaluated in the past after syncopal events. She cannot recall having had a recent stress test performed. She denies any exertional symptoms. She does have a history of hypertension. She is not diabetic. She does not smoke. She believes her cholesterol is normal. There is no family history of premature heart disease. PAST MEDICAL HISTORY: As mentioned above. She has had surgery for placement of right AV fistula. MEDICATIONS: Her medications at home included Norvasc, PhosLo, Plavix 75 mg daily, clonidine, and Edarbi 40 mg daily. ALLERGIES: SHE HAS NO DRUG ALLERGIES, BUT APPARENTLY HAD SEVERE REACTION TO PEANUTS IN THE PAST. SOCIAL HISTORY: She does not smoke or drink. FAMILY HISTORY: Her both parents are from age-related illnesses. No premature history of heart disease. REVIEW OF SYSTEMS: A twelve-point review of systems is notable for occasional fatigue and back pain. Otherwise, it is unremarkable. PHYSICAL EXAMINATION: GENERAL: She is an elderly woman, who appears comfortable at rest. VITAL SIGNS: Her blood pressure is 144/82 with a pulse of 78 and sinus, respirations are 16. She is currently afebrile. HEENT: Normocephalic, atraumatic. NECK: Supple. No JVD noted. CHEST: Crackles noted at both bases, greater on the right than left. HEART: PMI displaced laterally with a systolic murmur at the left sternal border. ABDOMEN: Soft, nontender with normoactive bowel sounds. EXTREMITIES: Functional fistula is noted in the right upper extremity, and no edema is noted. SKIN: Warm and dry. PSYCHIATRIC: Normal mood and affect. NEUROLOGIC: Alert and oriented x3. No gross motor or sensory deficits notable. DIAGNOSTIC DATA: White count 4.6, hemoglobin and hematocrit are 10 and 30.6 with a platelet count of 228,000. PT/PTT of 12.2 and 38.5. Potassium 4.1, BUN and creatinine are 47 and 7.2. Troponin 0.59. Repeat is 0.45. BNP is 155,000. Influenza serologies are negative. Chest x-ray reveals a normal cardiac silhouette with infiltrate at the right base. Electrocardiogram reveals sinus rhythm with first-degree AV block, voltage criteria for LVH and anterolateral T-wave inversions with a prolonged QT interval. Her prior cardiogram of 3 years ago did not show these changes. IMPRESSION: 1. Chest pain appears most likely pruritic from excessive coughing. 2. Right lower lobe pneumonia appears community-acquired. 3. Abnormal electrocardiogram likely due to left ventricular hypertrophy, cannot exclude anterolateral ischemia; however, elevated troponin likely due to reduced renal clearance. 4. Chronic renal failure, maintained on hemodialysis. 5. Rest of problems as noted. RECOMMENDATIONS: Current management should continue. Antibiotic therapy has been initiated. Bronchodilator therapy has been ordered as well. An echocardiogram will be ordered to assess for the presence of LVH and for any significant wall motion abnormalities. A repeat troponin in the morning will be ordered as well. Once she is fully recovered from her pneumonia, an eventual outpatient stress test should be performed given her risk factors. Thank you for this consultation. We will be happy to follow and make further recommendations as appropriate. Shoaib Blevins MD MTDD
--- NOTE | 2018-09-28 11:45 | CP.PCM.CON ---
History of Present Illness - History of Present Illness History of Present Illness: 77 year old female with PMH of ESRD on HD, HTN, asthma, CVA came in to [facility] because of productive cough and SOB for the past 2-3 weeks. Initially the phlegm was dark, then had some blood in it, and since last week it has been blood-tinge d. She denies fever or chills, no night sweats, no weight loss. The patient is not complaining of abdominal pain, had some nausea but has resolved, no diarrhea or dysuria or hematuria, no headache or dizziness, no dysphagia or odynophagia, no sore throat, no rhinorrhea, no joint pains. The patient does take Plavix on a regular basis. CXR is showing possible right lower lobe infiltrates. Infectious diseases consult is requested to further evaluate and manage. Review of Systems - Review of Systems All systems: reviewed and no additional remarkable complaints except (as per HPI) Past Patient History - Infectious Disease Hx of Infectious Diseases: None - Past Social History Smoking Status: Never Smoked - CARDIAC Hx Cardiac Disorders: Yes Hx Angina: No Hx Cardia Arrhythmia: No Hx Circulatory Problems: No Hx Congestive Heart Failure: No Hx Heart Murmur: No Hx Heart Transplant: No Hx Hypercholesterolemia: No Hx Hypertension: Yes Hx Internal Defibrillator: No Hx Mitral Valve Prolapse: No Hx Pacemaker: No Hx Peripheral Edema: No Hx Peripheral Vascular Disease: No - PULMONARY Hx Respiratory Disorders: Yes Hx Asthma: Yes Hx Bronchitis: Yes Hx Chronic Obstructive Pulmonary Disease (COPD): No Hx Emphysema: No Hx Pneumonia: Yes Hx Respiratory Aspiration: No Hx Respiratory Tract Infection: No Hx Sleep Apnea: No Hx Tuberculosis: No - NEUROLOGICAL Hx Neurological Disorder: No Hx Alzheimer's Disease: No HX Cerebrovascular Accident: No Hx Dementia: No Hx Dizziness: No Hx Meningitis: No Hx Migraine: No Hx Parkinson's Disease: No Hx Seizures: No Hx Transient Ischemic Attacks (TIA): No - HEENT Hx HEENT Problems: Yes (wearing glasses) Hx Blind: No Hx Cataracts: No Hx Deafness: No Hx Difficulty Chewing: No Hx Epistaxis: No Hx Glaucoma: No Hx Macular Degeneration: No - RENAL Hx Chronic Kidney Disease: Yes Hx Dialysis: Yes Hx Kidney Stones: No Hx Neurogenic Bladder: No Hx Pyelonephritis: No Hx Renal (Kidney) Cancer: No Hx Renal Failure: Yes - ENDOCRINE/METABOLIC Hx Endocrine Disorders: No Hx Adrenal Cancer: No Hx Diabetes Insipidus: No Hx Diabetes Mellitus Type 1: No Hx Diabetes Mellitus Type 2: No Hx Hyperthyroidism: No Hx Hypothyroidism: No Hx Systemic Lupus Erythematosus: No - HEMATOLOGICAL/ONCOLOGICAL Hx Blood Disorders: No Hx AIDS: No Hx Anemia: No Hx Cancer: No Hx Chemotherapy: No Hx Cirrhosis: No Hx Hemophilia: No Hx Hepatitis A: No Hx Hepatitis B: No Hx Hepatitis C: No Hx Human Immunodeficiency Virus (HIV): No Hx Metastesis: No Hx Shingles: No Hx Sickle Cell Disease: No Hx Unexplained Bleeding: No - INTEGUMENTARY Hx Dermatological Problems: No Hx Basil Cell: No Hx Eczema: No Hx Melanoma: No Hx Psoriasis: No Hx Squamous Cell: No - MUSCULOSKELETAL/RHEUMATOLOGICAL Hx Musculoskeletal Disorders: Yes Hx Arthritis: No Hx Back Pain: No Hx Degenerative Joint Disease: No Hx Falls: Yes Hx Fractures: No Hx Gout: No Hx Herniated Disk: No Hx Myasthenia Gravis: No Hx Osteoarthritis: No Hx Osteomyelitis: No Hx Osteoporosis: No Hx Rhabdomyolysis: No Hx Spinal Stenosis: No Hx Unsteady Gait: Yes - GASTROINTESTINAL Hx Gastrointestinal Disorders: No Hx Colostomy: No Hx Crohn's Disease: No Hx Diverticulitis: No Hx Gall Bladder Disease: No Hx Gastroesophageal Reflux: No Hx Ileostomy: No Hx Liver Failure: No Hx Pancreatitis: No HX Swallowing Problems: No Hx Ulcer: No - GENITOURINARY/GYNECOLOGICAL Hx Genitourinary Disorders: No Hx Hematuria: No Hx Incontinence: No Hx Sexually Transmitted Disorders: No Hx Urinary Tract Infection: No - PSYCHIATRIC Hx Psychophysiologic Disorder: No Hx Anxiety: No Hx Bipolar Disorder: No Hx Depression: No Hx Emotional Abuse: No Hx Hallucinations: No Hx Panic Symptoms: No Hx Paranoia: No Hx Post Traumatic Stress Disorder: No Hx Psychosis: No Hx Physical Abuse: No Hx Schizophrenia: No Hx Sexual Abuse: No Hx Substance Use: No - SURGICAL HISTORY Hx Surgeries: No Hx Amputation: No Hx Appendectomy: No Hx Cardiac Catheterization: No Hx Cholecystectomy: No Hx Coronary Stent: No Hx Gastric Bypass Surgery: No Hx Hysterectomy: No Hx Joint Replacement: No Hx Kidney Transplant: No Hx Liver Transplant: No Hx Mastectomy: No Hx Musculoskeletal Surgery: No Hx Open Heart Surgery: No Hx Orthopedic Surgery: No Hx Splenectomy: No Hx Valve Replacement: No - ANESTHESIA Hx Anesthesia: Yes Hx Anesthesia Reactions: No Hx Malignant Hyperthermia: No Meds Allergies/Adverse Reactions: Allergies Allergy/AdvReac Type Severity Reaction Status Date / Time peanut Allergy Severe ANAPHYLAXIS Verified 07/08/15 07:34 - Medications Medications: Current Medications Albuterol/Ipratropium (Duoneb 3 Mg/0.5 Mg (3 Ml) Ud) 3 ml IH [id number] [facility] Last Admin: 09/28/18 08:53 Dose: 3 ml Albuterol/Ipratropium (Duoneb 3 Mg/0.5 Mg (3 Ml) Ud) 3 ml IH Q2H PRN PRN Reason: Shortness of Breath Amlodipine Besylate (Norvasc) 10 mg PO DAILY MARCIA Budesonide (Pulmicort Respules) 0.5 mg IH [id number] [facility] Last Admin: 09/28/18 08:53 Dose: 0.5 mg Calcium Acetate (Phoslo) 667 mg PO WM MARCIA Methylprednisolone (Solu-Medrol) 30 mg IVP Q12 MARCIA Metoprolol Tartrate (Lopressor) 25 mg PO Q12 MARCIA (Azilsartan Medoxomil [Edarbi] 40 Mg) 40 mg PO DAILY MARCIA Physical Exam - Constitutional Appears: Chronically Ill - Head Exam Head Exam: NORMAL INSPECTION - ENT Exam ENT Exam: Mucous Membranes Moist - Neck Exam Neck exam: Negative for: Lymphadenopathy, Meningismus - Respiratory Exam Respiratory Exam: Decreased Breath Sounds, Rales (on the right lower lung gee) - Cardiovascular Exam Cardiovascular Exam: +S1, +S2 - GI/Abdominal Exam GI & Abdominal Exam: Soft. absent: Tenderness Results - Vital Signs Recent Vital Signs: Last Vital Signs Temp 98.4 F 09/28/18 06:00 Pulse 79 09/28/18 06:00 Resp 18 09/28/18 06:00 BP 144/82 09/28/18 06:00 Pulse Ox 96 09/28/18 06:00 - Labs Result Diagrams: 09/27/18 14:00 09/27/18 14:00 Labs: Laboratory Results - last 24 hr 09/27/18 09/27/18 09/27/18 14:00 14:00 14:00 WBC 4.6 RBC 3.10 L Hgb 10.0 L Hct 30.6 L MCV 98.7 MCH 32.3 MCHC 32.7 RDW 13.3 Plt Count 228 MPV 9.4 Neut % (Auto) 58.9 Lymph % (Auto) 29.2 [place] % (Auto) 8.6 H Eos % (Auto) 2.4 Baso % (Auto) 0.9 Lymph # (Auto) 1.3 [place] # (Auto) 0.4 Eos # (Auto) 0.1 Baso # (Auto) 0.04 Absolute Neuts (auto) 2.69 PT 12.2 INR 1.10 APTT 30.5 Sodium 135 Potassium 4.1 Chloride 91 L Carbon Dioxide 32 Anion Gap 17 BUN 47 H Creatinine 7.2 H Est GFR ( Amer) 7 Est GFR (Non-Af Amer) 6 Random Glucose 90 Calcium 9.1 Total Bilirubin 0.4 AST 31 ALT 10 Alkaline Phosphatase 127 H Lactate Dehydrogenase Total Creatine Kinase Troponin I NT-Pro-B Natriuret Pep [id number] H Total Protein 8.0 Albumin 4.2 Globulin 3.8 Albumin/Globulin Ratio 1.1 Influenza Typ A,B (EIA) 09/27/18 09/27/18 09/28/18 14:40 16:40 06:10 WBC RBC Hgb Hct MCV MCH MCHC RDW Plt Count MPV Neut % (Auto) Lymph % (Auto) [place] % (Auto) Eos % (Auto) Baso % (Auto) Lymph # (Auto) [place] # (Auto) Eos # (Auto) Baso # (Auto) Absolute Neuts (auto) PT INR APTT Sodium Potassium Chloride Carbon Dioxide Anion Gap BUN Creatinine Est GFR ( Amer) Est GFR (Non-Af Amer) Random Glucose Calcium Total Bilirubin AST ALT Alkaline Phosphatase Lactate Dehydrogenase 526 Total Creatine Kinase 87 Troponin I 0.59 H* D 0.45 H* D NT-Pro-B Natriuret Pep Total Protein Albumin Globulin Albumin/Globulin Ratio Influenza Typ A,B (EIA) Negative for flu a/b Assessment & Plan - Assessment and Plan (Free Text) Plan: Assessment consider right lower lobe HCAP in this patient with ESRD on HD HTN asthma CVA Plan Started with a dose of IV Vancomycin ,Merrem and Doxycycline pending sputum cx, blood cx, PCT reviewed CXR, will get CT chest to rule out other pathologies that may be associated with the blood-tinged sputum discussed with Dr. Senior - blood-tinged sputum may be associated with Plavix
--- NOTE | 2018-09-28 12:27 | CON ---
DATE OF CONSULTATION: 09/28/2018 PULMONARY CONSULTATION REASON FOR CONSULTATION: Pneumonia. REFERRING PHYSICIAN: Dr. Brodie Barbour. HISTORY OF PRESENT ILLNESS: The patient is a 77-year-old female, with past medical history significant for end-stage renal disease, hypertension, asthma, cerebrovascular accident (on Plavix), who presents to [facility] with main complaints of increasing shortness of breath at rest, dyspnea on exertion, cough, and minimal sputum production for the past 1 week. There is no history of chest pain. The patient does note that her sputum is blood streaked. There is no history of chest pain - brought on or made worse with deep respirations. There is no history of temperatures, chills, or infectious exposure. There is no history of night sweats, weight loss, or appetite change prior to the above events. No history of calf pains. No history of syncope or diaphoresis. No history of recent travel or trauma. REVIEW OF SYSTEMS: No history of nausea, vomiting or diarrhea. No new neurologic complaints. Rest of the review of systems is negative. ALLERGIES: PEANUTS. SOCIAL HISTORY: Negative for tobacco and negative for alcohol. FAMILY HISTORY: No inheritable diseases. MEDICATIONS: Home medications include Norvasc, Centrum, Catapres, Plavix, PhosLo. PHYSICAL EXAMINATION: GENERAL: The patient appears comfortable this morning. She is not short of breath at rest. VITAL SIGNS: Temperature 98.4, pulse 79, respirations 18, blood pressure 144/82. Oxygen saturation on room air is 96%. HEENT: Normocephalic, atraumatic. NECK: No JVD. CARDIOVASCULAR: Systolic ejection murmur at the lower left sternal border. No S3 gallop. LUNGS: Crackles at the right lower lobe. Mild bilateral rhonchi. No wheezing. EXTREMITIES: No clubbing, cyanosis, or edema. Calves are nontender to palpation. GASTROINTESTINAL: Abdomen is soft, nontender and nondistended. Bowel sounds are positive. SKIN: No acute rash. NEUROLOGIC: Exam is limited at the present time. PERTINENT LABORATORY DATA: Chest x-ray was done and reviewed. There are infiltrates at both bases (right much worse than left). CBC: White count 4.6K, hemoglobin 10, hematocrit 30.6, platelets of 228,000. Complete metabolic profile: Chloride 91, BUN 47, creatinine 7.2, alkaline phosphatase 127, troponin 0.59. B-type natriuretic peptide 155,000. Rest of the metabolic profile is within normal limits. IMPRESSION: 1. Bilateral pneumonia. 2. Acute bronchitis. 3. Asthma. 4. Abnormal electrocardiogram. 5. End-stage renal disease. 6. Mild anemia. PLAN: The patient presents to [facility] with a 1-week history of worsening pulmonary symptoms. I did review the chest x-ray - noted above. There are infiltrates at both bases (right much worse than left). Cultures have been ordered and will be analyzed when feasible. I will also consult Dr. Levine for antibiotic usage. In addition, on physical exam, there is mild bronchospasm noted. I will start the patient on nebulizer treatments and low-dose intravenous steroids this morning. I did discuss the case with the night nurse at length. An abnormal electrocardiogram was noted in the emergency room. There is also a positive troponin noted. Dr. Lopes (Cardiology) has been called on the case. The patient does state to feeling somewhat better this morning and is clinically improved. The night nurse notes no hemoptysis during her shift. I will discuss the above with the attending physician later this morning. Thank you very much for this pulmonary consultation. Shon Senior MD MTDD
--- NOTE | 2018-09-28 18:10 | HP ---
DATE OF EXAM: 09/28/2018 HISTORY OF PRESENT ILLNESS: The patient has hospital-acquired pneumonia. She has a chest x-ray that is abnormal. The patient has been started on IV antibiotics. She has end-stage renal disease, on hemodialysis. I have asked Dr. Shelton, her order planner to continue to follow the patient for dialysis. She is due for dialysis today. The patient has non-ST elevation HI. The patient is on aspirin and beta-blockers. She is going to be on Solu-Medrol for her shortness of breath. CT of the chest has been ordered to evaluate the patient's pneumonia. She is currently comfortable and denies any chest pain. The patient is on calcium acetate for her secondary hyperparathyroidism. The patient is on doxycycline for antibiotics. She was given vancomycin in the ER. She is going to be on a renal diet. We will also get Dr. Blevins to evaluate the patient, the patient did have an elevated troponin. Brodie Barbour MD
[2018-09-28] MEDS: MEROPENEM 500 MG in NS 500 MG/50 ML BAG IVPB SCH (18:37)
[2018-09-29] MEDS: Albuterol-Ipratrop 3 mg / 0.5 (3 ml) UD IH SCH ×4 (01:21→19:52)
[2018-09-29] MEDS: Budesonide 0.5 mg/2 ml Inhal Susp UD IH SCH (07:55)
--- NOTE | 2018-09-29 07:56 | CARD ---
APPROVED REPORT Date of service: 09/28/2018 EXAM: Two-dimensional and M-mode echocardiogram with Doppler and color Doppler. INDICATION Chest Pain 2D DIMENSIONS Left Atrium (2D)4.1 (1.6-4.0cm)IVSd1.3 (0.7-1.1cm) LVDd4.5 (3.9-5.9cm)LVOT Diameter1.8 (1.8-2.4cm) PWd1.4 (0.7-1.1cm) M-Mode DIMENSIONS Aortic Root2.20 (2.2-3.7cm)Aortic Cusp Exc.0.50 (1.5-2.0cm) Aortic Valve AoV Peak Gjjfuwyj455.0cm/sAoV VTI92.5cmAO Peak GR.75mmHg LVOT Peak Icfnlatx315.0cm/sLVOT VTI26.20cmAO Mean GR.43mmHg SARAH (VMAX)0.22zd8BLF (VTI)0.72cm2 Mitral Valve E/A ratio0.0 TDI E/Lateral E'0.0E/Medial E'0.0 Tricuspid Valve TR Peak Xcuaspdk402qi/sRAP [id number] Peak Gr.49mmHg [id number] LEFT VENTRICLE The left ventricle is normal size. There is moderate concentric left ventricular hypertrophy. The systolic function is mildly impaired. There is mild anteroseptal and apical hypokinesis. RIGHT VENTRICLE The right ventricle is normal size. The right ventricular systolic function is normal. ATRIA The left atrium is mildly dilated. The right atrium is mildly dilated. The interatrial septum is intact with no evidence for an atrial septal defect. AORTIC VALVE The aortic valve is moderately to severely calcified. There is mild aortic regurgitation. There is moderate to severe valvular aortic stenosis. MITRAL VALVE The mitral valve is mildly thickened. Mitral annular calcification is moderate. Mitral regurgitation is moderate. TRICUSPID VALVE The tricuspid valve is normal in structure. There is moderate tricuspid regurgitation. PULMONIC VALVE The pulmonary valve is normal in structure. GREAT VESSELS The aortic root is normal in size. The IVC is normal in size and collapses >50% with inspiration. PERICARDIAL EFFUSION There is no pleural effusion. There is no pericardial effusion. <Conclusion> Biatrial enlargement. Moderate concentric LVH. Mildly reduced LV systolic function with anteroseptal and apical hypokinesis. Moderate to severe . Moderate MR Moderate TR. Mild AI.
[2018-09-29] MEDS: MethylPREDNISolone 40 mg Vial IVP SCH ×2 (10:01→22:11)
[2018-09-29 10:05] LABS: HEMOGLOBIN 9.8 g/dL (12.0-16.0); MEAN CORPUSCULAR HEMOGLOBIN 32.5 pg (25.0-35.0); MEAN CORPUSCULAR HGB CONC 32.8 g/dl (31.0-37.0); MEAN PLATELET VOLUME 9.6 fl (7.0-11.0); RBC 3.02 10^6/uL (3.5-6.1); RED CELL DISTRIBUTION WIDTH 13.4 % (11.5-14.5); WHITE BLOOD COUNT 8.1 10^3/uL (4.5-11.0)
--- NOTE | 2018-09-29 10:08 | PN ---
DATE: 09/29/2018 PULMONARY NOTE SUBJECTIVE: The patient appears very comfortable this morning. She is not short of breath at rest. OBJECTIVE: VITAL SIGNS: Temperature is 97.5, pulse 78, respirations 18/20, blood pressure 144/74. Oxygen saturation on room air - 97%. HEENT: Normocephalic, atraumatic. NECK: No JVD. CARDIOVASCULAR: Systolic ejection murmur at the lower left sternal border. No S3 gallop. LUNGS: Less crackles noted - right lower lobe. Much less rhonchi. No wheezing. EXTREMITIES: No clubbing, cyanosis, or edema. Calves are nontender to palpation. GASTROINTESTINAL: Abdomen is soft, nontender and nondistended. Bowel sounds are positive. SKIN: No acute rash. NEUROLOGIC: Limited at the present time. PERTINENT LABORATORY DATA: CAT scan of the chest was done yesterday and reviewed. I also reviewed the CAT scan with Dr. Remy(Radiology). There is an extensive infiltrate noted in the right lower lobe area. There are much smaller infiltrates noted in the posterior aspect of the right upper lobe, and in the left base. There is no lymphadenopathy. There is no evidence of lung mass or nodule. There is also a very small right pleural effusion. IMPRESSION: 1. Bilateral pneumonia. 2. Acute bronchitis. 3. Asthma. 4. Abnormal electrocardiogram. 5. End-stage renal disease. 6. Mild anemia. PLAN: The patient appears much more comfortable this morning. She is not short of breath at rest. Her cough is much less. Her hemoptysis has primarily resolved. She does state to feeling much, much better overall. I did discuss the case with the night nurse at length. The night nurse stated the patient had a very good night. The night nurse also stated that there have been no signs of hemoptysis during her shift. On physical exam, there is certainly less bronchospasm noted. In addition, the alveolar arterial gradient is also less. I will continue the current nebulizer treatments and low-dose intravenous steroids for now. CAT scan of the chest was done yesterday and reviewed. Findings are noted above. I would continue with the antibiotic coverage as per infectious disease. Input by Dr. Wade, is noted. I did discuss the case with Dr. Wade yesterday. Input by Cardiology is also noted. Clinical status of the patient is certainly improved - compared to the initial presentation. The patient is advised to be out of bed today. I will discuss the above with the attending physician. Shon Senior MD MTDZeferino
--- NOTE | 2018-09-29 10:20 | PN ---
DATE: 09/29/2018 SUBJECTIVE: She is seen sitting in bed on telemetry. She continues to have a cough with scant blood-tinged sputum. She denies any lightheadedness or chest pain today. Her current medications include Edarbi, doxycycline, DuoNeb inhaler, metoprolol 25 mg every 12 hours, meropenem, Norvasc 10 mg daily, PhosLo, Pulmicort, and Solu-Medrol. OBJECTIVE: GENERAL: She is an elderly woman who appears comfortable at rest. VITAL SIGNS: Blood pressure is 150/78 with pulse of 76 in sinus, respirations are 14. She is afebrile. HEENT: Diminished and delayed carotid upstrokes. No JVD. CHEST: Bilateral scattered rhonchi with faint rales at the right base. HEART: PMI is displaced laterally with a systolic murmur at the base as well as the left sternal border. ABDOMEN: Soft, nontender, normoactive bowel sounds. EXTREMITIES: No edema. DIAGNOSTIC DATA: Troponin 0.36. Electrocardiogram reveals sinus rhythm with voltage criteria for LVH, anterolateral T-wave changes are less pronounced. Echocardiogram was reviewed and revealed evidence of biatrial enlargement, severely calcified aortic valve with evidence of [id number] aortic stenosis, LV function appeared mildly reduced with anteroseptal and apical hypokinesis, moderate concentric LVH was present. Moderate mitral and tricuspid regurgitation were also noted. IMPRESSION: 1. Community-acquired pneumonia, clinically improved. 2. Chronic renal failure, on hemodialysis. 3. Probable coronary disease given wall motion abnormalities noted on echocardiography. 4. Moderately severe aortic stenosis. 5. Moderate mitral and tricuspid regurgitation. RECOMMENDATIONS: Continued antibiotic therapy is advised. Her current cardiac medications should continue as well. An eventual evaluation with cardiac catheterization at a later date to better assess her aortic valve disease as well as to determine presence and extent of coronary disease will be recommended. I will continue to follow and make further recommendation as appropriate. Shoaib Blevins MD
[2018-09-29 10:23] LABS: CALCIUM 10.1 mg/dL (8.4-10.5)
--- NOTE | 2018-09-29 11:10 | PN ---
DATE: 09/29/2018 SUBJECTIVE: The patient has no complaints of any chest pain. No shortness of breath. No headaches or dizziness. PHYSICAL EXAMINATION: VITAL SIGNS: Temperature is 98.7, pulse is 78, blood pressure 151/78 and respirations 20. GENERAL: The patient is lying in bed, flat, comfortable. HEENT: No oral lesion. Anicteric sclerae. Moist mucosa. NECK: No JVD, adenopathy, or thyromegaly. CARDIOVASCULAR: S1 and S2, regular. No murmurs, rubs, or gallops. LUNGS: Clear to auscultation bilaterally. No wheeze, rales, or rhonchi. ABDOMEN: Bowel sounds are positive, soft, nontender and nondistended. EXTREMITIES: No cyanosis, clubbing or edema. LABORATORY DATA: White count of 4.6 and hemoglobin is 10. Creatinine is 7.2. ASSESSMENT: 1. Hospital-acquired pneumonia. 2. End-stage renal disease, on hemodialysis. 3. Non-ST elevation myocardial infarction. 4. Hepatitis C. 5. Hemoptysis, improved. 6. Dyslipidemia. 7. Anemia, chronic. PLAN: The patient is currently comfortable. She has troponin that has improved. The patient is on IV antibiotics with meropenem. The patient is on doxycycline for antibiotics. He is on calcium acetate for her secondary hyperparathyroidism. The patient is on steroids. I will discontinue the patient's telemetry monitoring. She is eating well. She denies any pain. She says she is feeling better than when she first came in to the hospital. Brodie Barbour MD
--- NOTE | 2018-09-29 11:17 | CP.PCM.PN ---
Subjective - Date & Time of Evaluation Date of Evaluation: 09/29/18 Time of Evaluation: 08:55 - Subjective Subjective: Still with cough but improving, feeling a little better, less pain in the chest, no fevers. Objective - Vital Signs/Intake and Output Vital Signs (last 24 hours): Temp Pulse Resp BP Pulse Ox 98.4 F 75 18 144/82 96 09/28/18 06:00 09/28/18 09:22 09/28/18 06:00 09/28/18 06:00 09/28/18 06:00 Intake and Output: 09/28/18 09/28/18 06:59 18:59 Intake Total 400 Balance 400 - Medications Medications: Current Medications Albuterol/Ipratropium (Duoneb 3 Mg/0.5 Mg (3 Ml) Ud) 3 ml IH [id number] MARCIA Last Admin: 09/28/18 08:53 Dose: 3 ml Albuterol/Ipratropium (Duoneb 3 Mg/0.5 Mg (3 Ml) Ud) 3 ml IH Q2H PRN PRN Reason: Shortness of Breath Amlodipine Besylate (Norvasc) 10 mg PO DAILY [facility] Budesonide (Pulmicort Respules) 0.5 mg IH [id number] MARCIA Last Admin: 09/28/18 08:53 Dose: 0.5 mg Calcium Acetate (Phoslo) 667 mg PO WM MARCIA Last Admin: 09/28/18 10:35 Dose: 667 mg Doxycycline Hyclate 100 mg/ (Sodium Chloride) 100 mls @ 100 mls/hr IVPB Q12 MARCIA; Protocol Meropenem/Sodium Chloride (Merrem Iv 500 Mg/Ns 50 Ml) 500 mg in 50 mls @ 100 mls/hr IVPB Q12 MARCIA; Protocol Stop: 10/05/18 10:01 Last Admin: 09/28/18 11:00 Dose: 100 mls/hr Vancomycin HCl 2 gm/ Sodium (Chloride) 500 mls @ 170 mls/hr IVPB ONCE ONE; Protocol Stop: 09/28/18 12:05 Methylprednisolone (Solu-Medrol) 30 mg IVP Q12 MARCIA Last Admin: 09/28/18 10:59 Dose: 30 mg Metoprolol Tartrate (Lopressor) 25 mg PO Q12 MARCIA Last Admin: 09/28/18 10:41 Dose: Not Given (Azilsartan Medoxomil [Edarbi] 40 Mg) 40 mg PO DAILY MARCIA - Labs Labs: 09/27/18 14:00 09/27/18 14:00 PT 12.2 SECONDS (9.4-12.5) 09/27/18 14:00 INR 1.10 09/27/18 14:00 APTT 30.5 Seconds (26.9-38.3) 09/27/18 14:00 - Constitutional Appears: No Acute Distress, Chronically Ill - Head Exam Head Exam: NORMAL INSPECTION - Neck Exam Neck Exam: absent: Meningismus - Respiratory Exam Respiratory Exam: Decreased Breath Sounds, Rales (on right lower lung gee) - Cardiovascular Exam Cardiovascular Exam: +S1, +S2 - GI/Abdominal Exam GI & Abdominal Exam: Soft. absent: Tenderness Assessment and Plan - Assessment and Plan (Free Text) Plan: Assessment right lower lobe HCAP in this patient with ESRD on HD HTN asthma CVA Plan gave a dose of IV Vancomycin, continue Merrem and Doxycycline day 2 and folllow up sputum cx; blood cx are negative reviewed CXR, and CT chest discussed with Dr. Senior - blood-tinged sputum may be associated with Plavix or pneumonia
[2018-09-29] MEDS: MEROPENEM 500 MG in NS 500 MG/50 ML BAG IVPB SCH (17:51)
--- NOTE | 2018-09-29 19:20 | CARD ---
APPROVED REPORT Date of service: 09/29/2018 EKG Measurement Heart [id number] <Conclusion> Sinus rhythm with 1st degree AV block Left ventricular hypertrophy with repolarization abnormality Abnormal ECG
[2018-09-30] MEDS: Albuterol-Ipratrop 3 mg / 0.5 (3 ml) UD IH SCH ×4 (01:10→20:18)
[2018-09-30] MEDS: Budesonide 0.5 mg/2 ml Inhal Susp UD IH SCH ×3 (07:18→20:17)
--- NOTE | 2018-09-30 09:43 | PN ---
DATE: 09/30/2018 PULMONARY NOTE SUBJECTIVE: The patient appears very comfortable this morning. She is not short of breath at rest. PHYSICAL EXAMINATION: VITAL SIGNS: (Last noted in the computer): Temperature is 97.3, pulse 79, respirations 19, blood pressure 148/73. Oxygen saturation on room air - 98%. HEENT: Normocephalic, atraumatic. No JVD. CARDIOVASCULAR: Systolic ejection murmur at the lower left sternal border. No S3 gallop. LUNGS: Less crackles noted - right lower lobe. Much less/minimal rhonchi. No wheezing. GASTROINTESTINAL: Abdomen is soft, nontender and nondistended. Bowel sounds are positive. EXTREMITIES: No clubbing, cyanosis or edema. Calves are nontender to palpation. SKIN: No acute rash. NEUROLOGIC: Exam limited at the present time. IMPRESSION: 1. Bilateral pneumonia. 2. Acute bronchitis. 3. Asthma. 4. Abnormal electrocardiogram. 5. End-stage renal disease. 6. Mild anemia. PLAN: The patient appears very comfortable this morning. She is not short of breath at rest. Her cough is much less. She does state to feeling much, much better overall. I did discuss the case with the patient and nurse at length. The patient's hemoptysis has now fully resolved. She is breathing quite easily this morning. On physical exam, her bronchospasm continues to resolve. In addition, the alveolar-arterial gradient also continues to resolve. I will continue the current nebulizer treatments and decrease the intravenous steroids this morning. The patient remains on antibiotic therapy - as per Infectious Disease. Input by Cardiology (Dr. Lopes) is also noted. Clinical status of the patient has significantly improved - compared to the initial presentation. However, given the above, the future status/prognosis for this patient does remain somewhat guarded. I will discuss the above with the attending physician. Shon Senior MD FAUZIA
[2018-09-30] MEDS: MethylPREDNISolone 40 mg Vial IVP SCH ×2 (10:38→21:46)
--- NOTE | 2018-09-30 11:35 | PN ---
DATE: 09/30/2018 SUBJECTIVE: The patient is seen sitting in bed on 5R. She is comfortable at the present time. She feels somewhat weak and tired. Her dyspnea and cough has improved. She denies any chest pain. Her current medications include Edarbi 40 mg daily, doxycycline, DuoNeb inhaler, metoprolol 25 mg every 12 hours, meropenem, Norvasc 10 mg daily, PhosLo, Pulmicort, and Solu-Medrol. OBJECTIVE: GENERAL: She is an elderly woman, who appears comfortable at rest. VITAL SIGNS: Blood pressure 136/70, pulse 76, respirations of 14. She is afebrile. HEENT: No JVD. CHEST: Few scattered rhonchi with faint rales at the right base. HEART: PMI displaced laterally with soft systolic murmur at the base and apex. ABDOMEN: Soft and nontender with normoactive bowel sounds. EXTREMITIES: No edema. DIAGNOSTIC DATA: No blood work pending this morning. IMPRESSION: 1. Community-acquired pneumonia, clinically improved. 2. Chronic renal failure, on hemodialysis. 3. Moderately severe aortic stenosis. 4. Moderate mitral and tricuspid regurgitation. 5. Probable coronary disease given abnormal wall motion noted on echocardiography. RECOMMENDATIONS: The current management should continue. Once her pneumonia has resolved, then eventual outpatient cardiac catheterization would be appropriate to assess her coronary disease and better assess her valvular heart disease. I will continue to follow along and make recommendations as needed. Shoaib Blevins MD
[2018-09-30] MEDS: MEROPENEM 500 MG in NS 500 MG/50 ML BAG IVPB SCH (16:29)
--- NOTE | 2018-09-30 20:24 | PN ---
DATE: 09/30/2018 SUBJECTIVE: The patient is a 77-year-old seen and examined, sitting in chair, reading her novel. She states she feels lot better. No chest pain. No shortness of breath. Eating and tolerating. PHYSICAL EXAMINATION VITAL SIGNS: She is afebrile. Pulse 77, respirations 18 and blood pressure 137/70. LUNGS: Bilateral fair airflow. No rhonchi or crackle. HEART: S1 and S2 audible. ABDOMEN: Soft and nontender. No rebound. No guarding. NEUROLOGIC: The patient is awake and alert. Able to communicate, ambulatory. LABORATORY EXAMINATION: WBC 8.1, hemoglobin 9.8, hematocrit 29 and platelet 252. Chemistry; sodium 137, potassium 4.8, chloride 99, CO2 of 21, BUN 39, creatinine 6.1, blood sugar of 118, troponin 0.36. ASSESSMENT: 1. Community-acquired pneumonia. 2. Renal failure, on dialysis. 3. Non-ST elevation myocardial infarction. 4. History of hepatitis C. 5. Hyperlipidemia. 6. Chronic anemia. PLAN: Currently, the patient is on doxycycline. She is getting nebulizer treatment. She is on beta-gallo. She is getting meropenem as per recommended by Infectious Disease. She is on IV steroid bi data architect. The patient seems to be stable at this point. Andrea Ortiz MD
--- NOTE | 2018-10-01 01:01 | PN ---
DATE: 09/30/2018 SUBJECTIVE: The patient is seen earlier today in room 567, bed 1. She is doing well. No fevers. No chills. She is requesting already of going home. PHYSICAL EXAMINATION: VITAL SIGNS: On exam, temperature is 98, blood pressure is 140/70, respiratory rate 18. HEENT: Unremarkable. NECK: Supple. LUNGS: Have decreased breath sounds. HEART: Normal S1, S2. ABDOMEN: Soft. LABORATORY DATA: Reveals white count is 8.1. Her chemistries are noted. Creatinine of 6.1. Influenza is negative. Blood cultures are negative. The patient is allergic to peanuts, urine Legionella antigen was never collected. The patient is on doxycycline and meropenem. Dr. Senior's note is reviewed. ASSESSMENT AND PLAN: This is a 77-year-old female who was admitted with right lower lobe healthcare-associated pneumonia and end-stage renal disease, on hemodialysis. Cultures negative. The patient with history of asthma, cerebrovascular accident, and hypertension. Day #3 of doxycycline and meropenem. Will continue for 7 days, maybe able to switch to p.o. within the next 24 hours. Armen Levine MD
[2018-10-01] MEDS: Albuterol-Ipratrop 3 mg / 0.5 (3 ml) UD IH SCH ×3 (01:48→13:30)
--- NOTE | 2018-10-01 03:11 | PN ---
DATE: 09/30/2018 SUBJECTIVE: The patient is seen sitting in chair. She is awake. She is alert. She is comfortable. She reports feeling much better. She denies any cough. She denies any shortness of breath. She denies any hemoptysis. She is eating dinner. PHYSICAL EXAMINATION: GENERAL: Elderly lady, sitting in chair. VITAL SIGNS: Blood pressure 137/70, heart rate 77, respiratory rate 20, temperature 98. HEENT: Normocephalic, atraumatic, positive pallor. NECK: Supple, no JVD. LUNGS: Bilateral equal air entry, bilateral equal expansion. Minimal crackles right base. CARDIAC: S1, S2, Regular rate and rhythm. No murmur, no rub. ABDOMEN: Soft, nondistended, nontender. Bowel sounds present. EXTREMITIES: No lower extremity edema. INTAKE AND OUTPUT: Not charted. LABORATORY DATA: Hemoglobin 9.8. Sodium 137, potassium 4.8, chloride 99, CO2 of 21, BUN 39, creatinine 6.1, glucose 118, calcium 10.1, phosphorus 3.1. CURRENT MEDICATIONS: Edarbi 40, doxycycline 100 every 12 hours, DuoNeb, Lopressor 25 every 12 hours, meropenem, PhosLo 667, Pulmicort, Solu-Medrol 20 IV every 12 hours. ASSESSMENT AND PLAN: 1. Multifocal bilateral pneumonia. 2. Decompensated congestive heart failure. 3. End stage renal disease. 4. Severe hypertension. 5. Non-ST elevation myocardial infarction. 6. History of hepatitis C. 7. Anemia of chronic kidney disease. PLAN: 1. Continue antibiotics. 2. Stable dialysis treatment yesterday, extra treatment to remove fluids. 3. Continue current antihypertensives. 4. Will require dialysis again tomorrow. Marina Shelton MD
[2018-10-01] MEDS: Budesonide 0.5 mg/2 ml Inhal Susp UD IH SCH (07:19)
[2018-10-01 07:55] LABS: HEMOGLOBIN 9.4 g/dL (12.0-16.0); LYMPH # 0.8 (1.2-3.4); LYMPH % 6.7 % (22.0-35.0); MEAN CELL VOLUME 98.6 fl (80.0-105.0); MEAN CORPUSCULAR HGB CONC 32.4 g/dl (31.0-37.0); MEAN PLATELET VOLUME 8.9 fl (7.0-11.0); MONO # 0.9 (0.1-0.6); MONO % 7.9 % (1.0-6.0); RBC 2.94 10^6/uL (3.5-6.1); WHITE BLOOD COUNT 11.6 10^3/uL (4.5-11.0)
[2018-10-01 08:03] VITALS: RESP 18
--- NOTE | 2018-10-01 09:11 | PN ---
DATE: 10/01/2018 SUBJECTIVE: The patient appears very comfortable this morning. She is not short of breath at rest. PHYSICAL EXAMINATION: VITAL SIGNS: Temperature is 97.7, pulse 78, respirations 18/20, blood pressure 144/66. Oxygen saturation on room air - 100%. HEENT: Normocephalic, atraumatic. No JVD. CARDIOVASCULAR: Systolic ejection murmur at the lower left sternal border. No S3 gallop. LUNGS: Less crackles noted - right lower lobe. Very minimal/less rhonchi. No wheezing. EXTREMITIES: No clubbing, cyanosis or edema. Calves are nontender to palpation. GASTROINTESTINAL: Abdomen is soft, nontender and nondistended. Bowel sounds are positive. SKIN: No acute rash. NEUROLOGIC: Exam limited at the present time. IMPRESSION: 1. Bilateral pneumonia. 2. Acute bronchitis. 3. Asthma. 4. Abnormal electrocardiogram. 5. End-stage renal disease. 6. Mild anemia. PLAN: The patient appears very comfortable this morning. She is not short of breath at rest. She does state to feeling much, much better overall. On physical exam, her bronchospasm continues to slowly resolve. In addition, the alveolar arterial gradient has resolved. Oxygen saturation on room air is now 100%. I will continue the current nebulizer treatments and low-dose intravenous steroids (decreased yesterday) for now. Hopefully, we can change to oral prednisone in the next 24 to 48 hours. The patient remains on antibiotic therapy - as per Infectious Disease. Input by Dr. Levine is noted. Inputs by Cardiology and Renal are also noted. Clinical status of the patient is significantly improved - compared to the initial presentation. However, given the above, the future status/prognosis for this patient does remain somewhat guarded. I will discuss the above with the attending physician. Shon Senior MD [facility]
[2018-10-01 09:20] LABS: ALB/GLOB RATIO 1.2 (1.1-1.8); ALBUMIN 4.3 g/dL (3.0-4.8); CALCIUM 9.5 mg/dL (8.4-10.5)
--- NOTE | 2018-10-01 09:47 | CON ---
DATE: 09/28/2018 CONSULTATION REASON FOR CONSULTATION: End stage renal disease, shortness of breath, need for dialysis. HISTORY OF PRESENT ILLNESS: A 77-year-old lady known to me from outpatient hemodialysis. The patient presented to the emergency room yesterday because of complaints of cough for 2 weeks, dark red phlegm intermittently for 2 weeks. She denies any fever. She denies any chills. She denies any chest tightness. She complains of some shortness of breath. She denies any nausea, vomiting, or diarrhea. In the emergency room, she was found to be hemodynamically stable, afebrile. Her hemoglobin was found to be 10. Her BNP was elevated at 155,000. She had a CT scan of the chest done this morning which showed multifocal pneumonia, most severe in the right lower lobe, no evidence of a lung mass or a cavity. Consultation is requested for dialysis. PAST MEDICAL AND SURGICAL HISTORY: Severe hypertension, hypertensive heart disease, ESRD, hepatitis C, anemia of chronic kidney disease, right upper extremity fistula. FAMILY HISTORY: Hypertension. SOCIAL HISTORY: No smoking, no alcohol use, no IV drug abuse. ALLERGIES: PEANUTS. MEDICATIONS AT HOME: Amlodipine 10 mg daily, clonidine, Plavix 75, PhosLo, Edarbi 40. REVIEW OF SYSTEMS: All systems are reviewed, pertinent positives as mentioned in the history of presenting illness, rest unremarkable. PHYSICAL EXAMINATION: GENERAL: Elderly lady sitting in bed, in no acute distress at this time. VITAL SIGNS: Blood pressure 144/82, heart rate 79, respiratory rate 18, temperature 98.4. HEENT: Normocephalic, atraumatic, positive pallor. NECK: Supple, no JVD. LUNGS: Bilateral equal air entry, crackles at the right base. CARDIAC: S1, S2, regular rate and rhythm, no murmur, no rub. ABDOMEN: Soft, nondistended, nontender, bowel sounds present. EXTREMITIES: No lower extremity edema. Intake and output, not charted. LABORATORY DATA: WBC 4.6, hemoglobin 10, hematocrit 30.6, platelets 228. Sodium 135, potassium 4.1, chloride 91, CO2 32, BUN 47, creatinine 7.2, glucose 90, calcium 9.1, AST 31, ALT 10, and troponin 0.59, second set 0.45; BNP 155,000, albumin 4.2. CT of the chest, extensive alveolar infiltrate in the right lower lobe, smaller infiltrates seen in the posterior inferior segments of the left upper lobe and right upper lobe. CURRENT MEDICATIONS: Edarbi 40 mg, doxycycline 100 every 12 hours, DuoNeb, Lopressor 25 every 12 hours, meropenem 500, amlodipine 10, PhosLo 667, Solu-Medrol 30 IV every 12 hours. ASSESSMENT: 1. Multifocal pneumonia. 2. Hemoptysis secondary to pneumonia. 3. Severe hypertension. 4. End stage renal disease. 5. Anemia of chronic kidney disease. 6. Decompensated congestive heart failure. PLAN: 1. Dialysis today. 2. UF 1500 as tolerated. Continue antibiotics as per ID recommendations. 3. Check phosphorus levels. 4. Will likely need ultrafiltration tomorrow. 5. Continue current antihypertensives. Marina Shelton MD
--- NOTE | 2018-10-01 10:03 | PN ---
DATE: 10/01/2018 SUBJECTIVE: The patient is seen lying in bed on the dialysis unit. She is feeling comfortable. Her cough is improved. Her dyspnea is improved as well. She denies any chest pain. CURRENT MEDICATIONS: Edarbi 40 mg daily, doxycycline, DuoNeb inhaler, metoprolol 25 mg every 12 hours, meropenem, Norvasc 10 mg daily, PhosLo, Pulmicort and Solu-Medrol. OBJECTIVE: GENERAL: She is an elderly woman, who appears comfortable at rest. VITAL SIGNS: Blood pressure is 142/66 with a pulse of 80, respirations of 14. She is afebrile. HEENT: No JVD. CHEST: Faint crackles at the right base. HEART: Systolic murmur is present at the base as well as the apex. ABDOMEN: Soft and nontender, normoactive bowel sounds. EXTREMITIES: No edema. DIAGNOSTIC DATA: White count is 11.6, hematocrit 9.4 and 29 with platelet count of 252,000. IMPRESSION: 1. Community-acquired pneumonia, clinically improving. 2. Chronic renal failure, maintained on hemodialysis. 3. Moderately severe aortic stenosis. 4. Moderate mitral and tricuspid regurgitation. 5. Probable coronary artery disease given wall motion abnormalities noted on echocardiography and mildly elevated troponin on admission. RECOMMENDATIONS: Her current medications will continue for now. From a cardiac standpoint, she appears stable for discharge home. Outpatient followup will be arranged and plans will be made for cardiac catheterization at a later date to better assess her valvular heart disease and coronary artery disease. Shoaib Blevins MD
[2018-10-01] MEDS: MethylPREDNISolone 40 mg Vial IVP SCH (13:27)
[2018-10-01 13:46] VITALS: BP 135/67; PULSE 83
--- NOTE | 2018-10-01 14:44 | CP.PCM.DIS ---
<Souleymane Bae - Last Filed: 10/01/18 14:40> Provider - Provider Date of Admission: 09/28/18 10:36 Attending physician: Brodie Barbour MD Primary care physician: Tashia Barry MD Consults: 09/27/18 19:40 Physician Consult Routine Comment: Consulting Provider: Shoaib Blevins Consulting Physician: Shoaib Blevins Reason for Consult: abnormal EKG 09/27/18 20:33 Consult [Physician Consult] Routine Comment: Consulting Provider: Marina Shelton Consulting Physician: Marina Shelton Reason for Consult: ESRD on HD 09/28/18 06:18 Consult [Physician Consult] Routine Comment: Consulting Provider: Shon Senior Consulting Physician: Shon Senior Reason for Consult: hemoptysis 09/28/18 06:55 Physician Consult Routine Comment: Consulting Provider: Armen Levine Consulting Physician: Armen Levine Reason for Consult: Pneumonia Time Spent in preparation of Discharge (in minutes): 45 Hospital Course - Lab Results Lab Results: Micro Results 09/29/18 19:00 Naris MRSA Culture (Admit) - Final MRSA NOT DETECTED 09/27/18 16:55 Blood Blood Culture - Preliminary NO GROWTH AFTER 3 DAYS 09/27/18 16:25 Blood Blood Culture - Preliminary NO GROWTH AFTER 3 DAYS Most Recent Lab Values WBC 11.6 10^3/uL (4.5-11.0) H D 10/01/18 07:40 RBC 2.94 10^6/uL (3.5-6.1) L 10/01/18 07:40 Hgb 9.4 g/dL (12.0-16.0) L 10/01/18 07:40 Hct 29.0 % (36.0-48.0) L 10/01/18 07:40 MCV 98.6 fl (80.0-105.0) 10/01/18 07:40 MCH 32.0 pg (25.0-35.0) 10/01/18 07:40 MCHC 32.4 g/dl (31.0-37.0) 10/01/18 07:40 RDW 14.0 % (11.5-14.5) 10/01/18 07:40 Plt Count 252 10^3/uL (120.0-450.0) 10/01/18 07:40 MPV 8.9 fl (7.0-11.0) 10/01/18 07:40 Neut % (Auto) 85.4 % (50.0-68.0) H 10/01/18 07:40 Lymph % (Auto) 6.7 % (22.0-35.0) L 10/01/18 07:40 [place] % (Auto) 7.9 % (1.0-6.0) H 10/01/18 07:40 Eos % (Auto) 0.0 % (1.5-5.0) L 10/01/18 07:40 Baso % (Auto) 0.0 % (0.0-3.0) 10/01/18 07:40 Lymph # (Auto) 0.8 (1.2-3.4) L 10/01/18 07:40 [place] # (Auto) 0.9 (0.1-0.6) H 10/01/18 07:40 Eos # (Auto) 0.0 (0.0-0.7) 10/01/18 07:40 Baso # (Auto) 0.00 K/mm3 (0.0-2.0) 10/01/18 07:40 Absolute Neuts (auto) 9.88 (1.4-6.5) H 10/01/18 07:40 PT 12.2 SECONDS (9.4-12.5) 09/27/18 14:00 INR 1.10 09/27/18 14:00 APTT 30.5 Seconds (26.9-38.3) 09/27/18 14:00 Sodium 140 mmol/L (132-148) 10/01/18 07:40 Potassium 5.9 mmol/L (3.6-5.0) H* D 10/01/18 07:40 Chloride 100 mmol/L (98-107) 10/01/18 07:40 Carbon Dioxide 19 mmol/L (21-33) L 10/01/18 07:40 Anion Gap 27 (10-20) H 10/01/18 07:40 BUN 112 mg/dL (7-21) H 10/01/18 07:40 Creatinine 11.0 mg/dl (0.7-1.2) H* D 10/01/18 07:40 Est GFR ( Amer) 4 10/01/18 07:40 Est GFR (Non-Af Amer) 3 10/01/18 07:40 Random Glucose 96 mg/dL (70-110) 10/01/18 07:40 Calcium 9.5 mg/dL (8.4-10.5) 10/01/18 07:40 Phosphorus 9.1 mg/dL (2.5-4.5) H 10/01/18 07:40 Magnesium 2.5 mg/dL (1.7-2.2) H 10/01/18 07:40 Total Bilirubin 0.4 mg/dL (0.2-1.3) 10/01/18 07:40 AST 29 U/L (14-36) 10/01/18 07:40 ALT 8 U/L (7-56) 10/01/18 07:40 Alkaline Phosphatase 115 U/L (38-126) 10/01/18 07:40 Lactate Dehydrogenase 526 U/L (333-699) 09/27/18 14:40 Total Creatine Kinase 87 U/L (35-230) 09/27/18 14:40 Troponin I 0.36 ng/mL H* 09/29/18 06:00 NT-Pro-B Natriuret Pep [id number] pg/mL (0-450) H 09/27/18 14:00 Total Protein 7.9 g/dL (5.8-8.3) 10/01/18 07:40 Albumin 4.3 g/dL (3.0-4.8) 10/01/18 07:40 Globulin 3.6 gm/dL 10/01/18 07:40 Albumin/Globulin Ratio 1.2 (1.1-1.8) 10/01/18 07:40 Procalcitonin 0.39 NG/ML (0.19-0.49) 09/28/18 09:10 Influenza Typ A,B (EIA) Negative for flu a/b (NEGATIVE) 09/27/18 16:40 - Hospital Course Hospital Course: 77F with PMHx of ESRD on HD (MWF), HTN, Hep C, anemia, cataracts, asthma, and CVA presents to ED complaining of roughly 3 weeks of hemoptysis. Patient stated that she began having dark red blood initially, however became pink and blood- tinged in nature. Patient denied any recent travels, or sick contacts. She noted that her symptoms arise mostly at night while preparing for sleep.Patient states that she also has complaints of dypsnea upon exertion and is sometimes positional. Patient states that she has gone to HD consistently and is compliant with all of her medications. CXR reviewed and revealed possible right lower lobe infiltrate. Patient was afebrile with unremarkable wbc, no hx of fevers or chillsPatient EKG reviewed, T waves inversion noted, positive trops vs baseline and downtrending likely NSTEMI, no acute intervention in setting of hemoptysis as per Cardiology, Dr. Blevins, Echo reviewed. Patient started on metoprolol 25mg BID. Patient on duonebs, pulmicort, and solumedrol for dyspnea. Chest CT reviewed and r/o mass or cavitary lesion. Patient to continue on her HD schedule upon discharge. Will continue with phoslo and . Patient on norvasc and edarbi for HTN. Patient is to follow up with Dr. Barry upon discharge within 1 week. Patient is to Follow up with cardiology Dr. Blevins, within 1 week. Patient is to Follow up with Human Resource Advisor, Dr. Shelton within 1 week. Discharge Exam - Head Exam Head Exam: NORMAL INSPECTION - Eye Exam Eye Exam: EOMI, Normal appearance, PERRL Pupil Exam: NORMAL ACCOMODATION, PERRL - ENT Exam ENT Exam: Mucous Membranes Moist - Respiratory Exam Respiratory Exam: Clear to PA & Lateral, NORMAL BREATHING PATTERN, UNREMARKABLE - Cardiovascular Exam Cardiovascular Exam: REGULAR RHYTHM, +S1, +S2 - GI/Abdominal Exam GI & Abdominal Exam: Normal Bowel Sounds, Unremarkable. absent: Tenderness - Neurological Exam Neurological exam: Alert, CN II-XII Intact, Normal Gait, Oriented x3, Reflexes Normal - Psychiatric Exam Psychiatric exam: Normal Affect, Normal Mood - Skin Skin Exam: Dry, Intact, Normal Color, Warm Discharge Plan - Discharge Medications Prescriptions: Doxycycline Hyclate 100 mg PO BID #14 capsule - Follow Up Plan Condition: FAIR Disposition: HOME/ ROUTINE Instructions: Pneumonia, Adult (DC), Coughing up Blood, Troponin Test Additional Instructions: 1. patient is to follow up with PMD Dr. Barry within 1 week 2. Patient is to Follow up with cardiology Dr. Blevins, within 1 week. 3. Patient is to Follow up with Human Resource Advisor, Dr. Shelton within 1 week. 4. Patient is to adhere to her Dialysis schedule of MWF 5. Patient is to be made aware of new antibiotic prescribed for 7 days. Patient is to take one tablet twice a day for 7 days. 6. patient welcome to return to [facility] if symptoms change or worsen Referrals: Tashia Barry MD [Primary Care Provider] - Marina Shelton MD [Staff Provider] - Shoaib Blevins MD [Staff Provider] - <Brodie Barbour - Last Filed: 10/01/18 21:52> Provider - Provider Date of Admission: 09/28/18 10:36 Attending physician: Brodie Barbour MD Primary care physician: Tashia Barry MD Consults: 09/27/18 19:40 Physician Consult Routine Comment: Consulting Provider: Shoaib Blevins Consulting Physician: Shoaib Blevins Reason for Consult: abnormal EKG 09/27/18 20:33 Consult [Physician Consult] Routine Comment: Consulting Provider: Marina Shelton Consulting Physician: Marina Shelton Reason for Consult: ESRD on HD 09/28/18 06:18 Consult [Physician Consult] Routine Comment: Consulting Provider: Shon Senior Consulting Physician: Shon Senior Reason for Consult: hemoptysis 09/28/18 06:55 Physician Consult Routine Comment: Consulting Provider: Armen Levine Consulting Physician: Armen Levine Reason for Consult: Pneumonia Hospital Course - Lab Results Lab Results: Micro Results 09/27/18 16:55 Blood Blood Culture - Preliminary NO GROWTH AFTER 4 DAYS 09/27/18 16:25 Blood Blood Culture - Preliminary NO GROWTH AFTER 4 DAYS 09/29/18 19:00 Naris MRSA Culture (Admit) - Final MRSA NOT DETECTED Most Recent Lab Values WBC 11.6 10^3/uL (4.5-11.0) H D 10/01/18 07:40 RBC 2.94 10^6/uL (3.5-6.1) L 10/01/18 07:40 Hgb 9.4 g/dL (12.0-16.0) L 10/01/18 07:40 Hct 29.0 % (36.0-48.0) L 10/01/18 07:40 MCV 98.6 fl (80.0-105.0) 10/01/18 07:40 MCH 32.0 pg (25.0-35.0) 10/01/18 07:40 MCHC 32.4 g/dl (31.0-37.0) 10/01/18 07:40 RDW 14.0 % (11.5-14.5) 10/01/18 07:40 Plt Count 252 10^3/uL (120.0-450.0) 10/01/18 07:40 MPV 8.9 fl (7.0-11.0) 10/01/18 07:40 Neut % (Auto) 85.4 % (50.0-68.0) H 10/01/18 07:40 Lymph % (Auto) 6.7 % (22.0-35.0) L 10/01/18 07:40 [place] % (Auto) 7.9 % (1.0-6.0) H 10/01/18 07:40 Eos % (Auto) 0.0 % (1.5-5.0) L 10/01/18 07:40 Baso % (Auto) 0.0 % (0.0-3.0) 10/01/18 07:40 Lymph # (Auto) 0.8 (1.2-3.4) L 10/01/18 07:40 [place] # (Auto) 0.9 (0.1-0.6) H 10/01/18 07:40 Eos # (Auto) 0.0 (0.0-0.7) 10/01/18 07:40 Baso # (Auto) 0.00 K/mm3 (0.0-2.0) 10/01/18 07:40 Absolute Neuts (auto) 9.88 (1.4-6.5) H 10/01/18 07:40 PT 12.2 SECONDS (9.4-12.5) 09/27/18 14:00 INR 1.10 09/27/18 14:00 APTT 30.5 Seconds (26.9-38.3) 09/27/18 14:00 Sodium 140 mmol/L (132-148) 10/01/18 07:40 Potassium 3.6 mmol/L (3.6-5.0) 10/01/18 15:05 Chloride 100 mmol/L (98-107) 10/01/18 07:40 Carbon Dioxide 19 mmol/L (21-33) L 10/01/18 07:40 Anion Gap 27 (10-20) H 10/01/18 07:40 BUN 112 mg/dL (7-21) H 10/01/18 07:40 Creatinine 11.0 mg/dl (0.7-1.2) H* D 10/01/18 07:40 Est GFR ( Amer) 4 10/01/18 07:40 Est GFR (Non-Af Amer) 3 10/01/18 07:40 Random Glucose 96 mg/dL (70-110) 10/01/18 07:40 Calcium 9.5 mg/dL (8.4-10.5) 10/01/18 07:40 Phosphorus 9.1 mg/dL (2.5-4.5) H 10/01/18 07:40 Magnesium 2.5 mg/dL (1.7-2.2) H 10/01/18 07:40 Total Bilirubin 0.4 mg/dL (0.2-1.3) 10/01/18 07:40 AST 29 U/L (14-36) 10/01/18 07:40 ALT 8 U/L (7-56) 10/01/18 07:40 Alkaline Phosphatase 115 U/L (38-126) 10/01/18 07:40 Lactate Dehydrogenase 526 U/L (333-699) 09/27/18 14:40 Total Creatine Kinase 87 U/L (35-230) 09/27/18 14:40 Troponin I 0.36 ng/mL H* 09/29/18 06:00 NT-Pro-B Natriuret Pep [id number] pg/mL (0-450) H 09/27/18 14:00 Total Protein 7.9 g/dL (5.8-8.3) 10/01/18 07:40 Albumin 4.3 g/dL (3.0-4.8) 10/01/18 07:40 Globulin 3.6 gm/dL 10/01/18 07:40 Albumin/Globulin Ratio 1.2 (1.1-1.8) 10/01/18 07:40 Procalcitonin 0.39 NG/ML (0.19-0.49) 09/28/18 09:10 Influenza Typ A,B (EIA) Negative for flu a/b (NEGATIVE) 09/27/18 16:40 - Hospital Course Hospital Course: Pt seen and examined by me. I have reviewed the note of the clinical medical transcriptionist and I agree with it. I have discussed the assessment and plan with the resident. I have reviewed the medications and the last labs.
[2018-10-01] MEDS: MEROPENEM 500 MG in NS 500 MG/50 ML BAG IVPB SCH (15:13)
[2018-10-01 15:28] VITALS: TEMP 97.6; O2SAT 98
--- NOTE | 2018-10-02 00:51 | PN ---
DATE: 10/01/2018 SUBJECTIVE: The patient is seen sitting in chair. She is awake, she is alert and comfortable. She denies any pain. She denies any shortness of breath. PHYSICAL EXAMINATION: GENERAL: An elderly lady, sitting in bed. VITAL SIGNS: Blood pressure 135/67, heart rate 83, respiratory rate 18, temperature 97.6. HEENT: Normocephalic, atraumatic, positive pallor. NECK: Supple, no JVD. LUNGS: Bilateral equal entry, crackles right base. CARDIAC: S1, S2, regular rate and rhythm, no murmur, no rub. ABDOMEN: Soft, nondistended, nontender, bowel sounds present. EXTREMITIES: No lower extremity edema. INTAKE AND OUTPUT: Not charted. LABORATORY DATA: WBC 11.6, hemoglobin 9.4, hematocrit 29, platelets 252. Sodium 140, potassium 5.9, chloride 100, CO2 of 19, BUN 112, creatinine 11, glucose 96, calcium 9.5, phosphorus 9.1, magnesium 2.5. Blood cultures no growth. CURRENT MEDICATIONS: Edarbi, doxycycline 100 mg every 12 hours, DuoNeb, Lopressor 25 every 12 hours, meropenem 500 mg, amlodipine 10 mg, PhosLo 1 t.i.d., Solu-Medrol 20 mg every 12 hours. ASSESSMENT: 1. Multilobar bilateral pneumonia. 2. Congestive heart failure. 3. Non-ST elevation myocardial infarction. 4. Hypertension. 5. End-stage renal disease. 6. Hyperkalemia. 7. Hypophosphatemia. PLAN: 1. Status post dialysis today. 2. Ultrafiltration 1500. 3. Blood pressure well controlled. 4. Increase ultrafiltration on dialysis. 5. No objection to discharge. Marina Shelton MD
--- NOTE | 2018-10-02 02:52 | PN ---
DATE: 10/01/2018 SUBJECTIVE: The patient is in bed, in no acute distress, was seen earlier today in room 567, bed 1. PHYSICAL EXAMINATION: VITAL SIGNS: On exam, temperature is 97, blood pressure is 135/60, respiratory rate of 18. HEENT: Unremarkable. NECK: Supple. LUNGS: Have decreased breath sounds. HEART: Normal S1, S2. ABDOMEN: Soft. LABORATORY DATA: Reveals a white count 11,600, hemoglobin of 9. Creatinine is 11. Serology is noted. Influenza is negative. Microbiology reveals negative nares, negative blood cultures. ASSESSMENT AND PLAN: A 77-year-old female, admitted with right lower lobe healthcare-associated pneumonia, end-stage renal disease, hemodialysis, history of asthma, cerebrovascular accident. On day #4 of doxycycline and meropenem, may complete with p.o. antibiotics. Follow up with Pulmonary, resolution of the imaging as outpatient. Armen Levine MD
--- NOTE | 2018-10-02 05:01 | DS ---
HOSPITAL COURSE: The patient was seen and examined. I do agree with the note of the pesticide use medical coordinator. I was involved in the plan of care. The patient has end-stage renal disease, on hemodialysis. She was being treated for hospital-acquired pneumonia. She is feeling much better. She is breathing better. Her chest pain is resolved. She is going to be changed over to p.o. doxycycline and discharged home. She is going to follow up with her primary care doctor, Dr. Barry. CONDITION: Stable. ACTIVITY: Increase as tolerated. Brodie Barbour MD
== END 2018-10-01 18:04 | disposition home or self-care (01) | DRG 280 ==
LOC: ED 13:23 → ERH 16:07 → 2RNO 09-28 00:50 → OBSVTOIN 09-28 10:36 → 5RNO 09-29 20:47
PROVIDERS: ADMIT Internal Medicine Nephrology; ATTEND Internal Medicine Nephrology
PROC: 5A1D70Z Performance of Urinary Filtration, Intermittent, Less than 6 Hours Per Day (ICD-10-PCS; principal; 2018-09-28)
PROC: 3E0F7GC Introduction of Other Therapeutic Substance into Respiratory Tract, Via Natural or Artificial Opening (ICD-10-PCS; 2018-09-28)
PROC: 5A1D70Z Performance of Urinary Filtration, Intermittent, Less than 6 Hours Per Day (ICD-10-PCS; 2018-09-29)
PROC: 5A1D70Z Performance of Urinary Filtration, Intermittent, Less than 6 Hours Per Day (ICD-10-PCS; 2018-10-01)
DX: I21.4 Non-ST elevation (NSTEMI) myocardial infarction (principal); J18.1 Lobar pneumonia, unspecified organism; N18.6 End stage renal disease; R04.2 Hemoptysis; N25.81 Secondary hyperparathyroidism of renal origin; I13.2 Hypertensive heart and chronic kidney disease with heart failure and with stage 5 chronic kidney disease, or end stage renal disease; Y95 Nosocomial condition; D63.1 Anemia in chronic kidney disease; B19.20 Unspecified viral hepatitis C without hepatic coma; I50.9 Heart failure, unspecified; J20.9 Acute bronchitis, unspecified; E83.39 Other disorders of phosphorus metabolism; E87.5 Hyperkalemia; E78.5 Hyperlipidemia, unspecified; J45.909 Unspecified asthma, uncomplicated; I08.3 Combined rheumatic disorders of mitral, aortic and tricuspid valves; Z99.2 Dependence on renal dialysis; Z87.01 Personal history of pneumonia (recurrent); Z91.19 Patient's noncompliance with other medical treatment and regimen; Z79.02 Long term (current) use of antithrombotics/antiplatelets; Z79.899 Other long term (current) drug therapy; Z86.73 Personal history of transient ischemic attack (TIA), and cerebral infarction without residual deficits

== ENCOUNTER 2018-10-14 11:12 | Inpatient (IN) | payer MEDICARE, BC ==
[2018-10-14 11:13] VITALS: BMI 21.9
[2018-10-14 12:02] LABS: VENOUS BLOOD GAS BASE EXCESS 7.7 mmol/L (0.0-2.0); VENOUS BLOOD GAS PO2 49 mm/Hg (30-55); VENOUS BLOOD PH 7.46 (7.32-7.43)
--- NOTE | 2018-10-14 12:11 | ED PDOC ---
Arrival/HPI - General Chief Complaint: Shortness Of Breath Time Seen by Provider: 10/14/18 11:23 Historian: Patient - History of Present Illness Narrative History of Present Illness (Text): 10/14/18 12:08 78 y.o female with past medical history of ESRD on HD (MW), HTN, Hep C, anemia, cataracts, asthma, and CVA, who presents to the emergency department complaining of shortness of breath and reoccurring pneumonia symptoms. Patient states she was seen five days ago for pneumonia and was prescribed antibiotics. Patient reports spiting up blood, shortness of breath, and a cough with mucus since yesterday. Patient states these symptoms are similar to when she had pneumonia. Patient denies fever, edema, abdominal pain, and traveling outside of the country. Time/Duration: 24 hours Symptom Onset: Gradual Symptom Course: Unchanged Context: Home Past Medical History - Provider Review Nursing Documentation Reviewed: Yes - Infectious Disease Hx of Infectious Diseases: None - Cardiac Hx Hypertension: Yes Hx Pacemaker: No - Pulmonary Hx Respiratory Disorders: Yes - Neurological Hx Paralysis: No - HEENT Hx HEENT Disorder: Yes Hx Cataracts: Yes (right eye) - Renal Hx Renal Disorder: Yes Hx Dialysis: Yes ([facility]) Date of Last Dialysis Treatment: 09/26/18 Hx Renal Failure: Yes - Endocrine/Metabolic Hx Endocrine Disorders: No - Hematological/Oncological Hx Blood Transfusions: No Hx Blood Transfusion Reaction: No - Integumentary Hx Dermatological Disorder: No - Musculoskeletal/Rheumatological Hx Musculoskeletal Disorders: No - Gastrointestinal Hx Gastrointestinal Disorders: No - Genitourinary/Gynecological Hx Genitourinary Disorders: No - Psychiatric Hx Emotional Abuse: No Hx Physical Abuse: No Hx Substance Use: No - Past Surgical History Past Surgical History: Non-Contributing - Surgical History Other/Comment: R AV Fistula for HD - Anesthesia Hx Anesthesia: Yes Hx Anesthesia Reactions: No Hx Malignant Hyperthermia: No - Suicidal Assessment Feels Threatened In Home Enviroment: No Family/Social History - Physician Review Nursing Documentation Reviewed: Yes Family/Social History: Unknown Family HX Smoking Status: Never Smoked Hx Alcohol Use: No Hx Substance Use: No Hx Substance Use Treatment: No Allergies/Home Meds Allergies/Adverse Reactions: Allergies peanut Allergy (Severe, Verified 10/14/18 11:21) ANAPHYLAXIS Home Medications: Home Meds Medication Instructions Recorded Confirmed amLODIPine [Norvasc] 40 mg PO DAILY 10/21/14 10/14/18 Calcium Acetate [Phoslo] 667 mg PO WM 07/08/15 10/14/18 Multivit-Min/FA/Lycopen/Lutein 1 each PO DAILY 07/08/15 10/14/18 [Centrum Silver Tablet] Clopidogrel [Plavix] 75 mg PO DAILY 12/09/16 10/14/18 Azilsartan Medoxomil [Edarbi] 40 mg PO DAILY 09/27/18 10/14/18 cloNIDine [Catapres] 1 tab PO DAILY 09/27/18 10/14/18 Review of Systems - Physician Review All systems were reviewed & negative as marked: Yes - Review of Systems Respiratory: SOB, Cough (Cough with some mucus. Spitting blood. ) Physical Exam - Physical Exam Narrative Physical Exam (Text): 10/14/18 12:13 Gen: VS reviewed, alert, well developed, well nourished, nontoxic, mild distress. ENT: normal pharynx. Eye: EOMI, PERRL. Neck: no JVD, supple, no adenopathy. CV: regular rate, regular rhythm, no rubs, no murmur, no gallops, S1, S2, pulses equal and strong. Abd: soft, nontender, no guarding, no rebound, no rigidity, normal bowel sounds. Ext: no edema. Skin: good color, no rash, no cyanosis. Psych: responds appropriately to questions, normal affect. Neuro: oriented x 3, CN2-12 intact grossly, motor intact, sensation intact. Vital Signs Temp Pulse Resp BP Pulse Ox 10/14/18 11:31 78 18 157/71 H 99 10/14/18 11:21 97.8 F 90 17 157/71 H 99 Temperature: Afebrile Blood Pressure: Hypertensive Pulse: Regular Respiratory Rate: Normal Appearance: Positive for: Well-Appearing, Non-Toxic, Comfortable Pain Distress: None Mental Status: Positive for: Alert and Oriented X 3 - Systems Exam Respiratory/Chest: Present: Rhonchi (Rhonchi to right lung base. ) Medical Decision Making ED Course and Treatment: 10/14/18 17:[address] anderson, covering for dr. salinas. patient reports she has been feeling dyspneic at home, she reports that the bloody sputum was pink this time aroound but not red like when she was initially diagnosed with pneumonia. patient to be admitted with a persistently abnormal ekg concerning for ischemia, atypical chest pain, borderline elevated troponin, rule out acs. - Lab Interpretations Narrative Lab Interpretation (Text): 10/14/18 12:30 10/14/18 11:30 10/14/18 11:30 Lab Results 10/14/18 11:45: pO2 49, VBG pH 7.46 H, VBG pCO2 46.0, VBG HCO3 32.7 H, VBG Total CO2 34.1 H, VBG O2 Sat (Calc) 85.9 H, VBG Base Excess 7.7 H, VBG Potassium 4.6, Glucose 127 H, Lactate 1.9, FiO2 21.0, Sodium 134.0, Chloride 96.0 L, Venous Blood Potassium 4.6 10/14/18 11:30: PT 12.1, INR 1.07, APTT 26.1 L 10/14/18 11:30: WBC 7.5 D, RBC 2.77 L, Hgb 9.1 L, Hct 27.2 L, MCV 98.2, MCH 32.9, MCHC 33.5, RDW 13.4, Plt Count 198, MPV 9.6, Neut % (Auto) 72.7 H, Lymph % (Auto) 11.3 L, [place] % (Auto) 14.1 H, Eos % (Auto) 1.2 L, Baso % (Auto) 0.7, Lymph # (Auto) 0.9 L, [place] # (Auto) 1.1 H, Eos # (Auto) 0.1, Baso # (Auto) 0.05, Absolute Neuts (auto) 5.49 10/14/18 11:30: Sodium 136, Potassium 4.4, Chloride 93 L, Carbon Dioxide 29, Anion Gap 19, BUN 58 H, Creatinine 8.2 H* D, Est GFR ( Amer) 6, Est GFR (Non-Af Amer) 5, Random Glucose 127 H, Calcium 9.4, Total Bilirubin 0.5, AST 27, ALT 11, Alkaline Phosphatase 137 H, Troponin I Pending, NT-Pro-B Natriuret Pep Pending, Total Protein 7.1, Albumin 3.9, Globulin 3.3, Albumin/Globulin Ratio 1.2 Lab Results: pO2 49 mm/Hg (30-55) 10/14/18 11:45 VBG pH 7.46 (7.32-7.43) H 10/14/18 11:45 VBG pCO2 46.0 (40-60) 10/14/18 11:45 VBG HCO3 32.7 mmol/l (21-28) H 10/14/18 11:45 VBG Total CO2 34.1 mmol.L (22-28) H 10/14/18 11:45 VBG O2 Sat (Calc) 85.9 % (40-65) H 10/14/18 11:45 VBG Base Excess 7.7 mmol/L (0.0-2.0) H 10/14/18 11:45 VBG Potassium 4.6 mmol/L (3.6-5.2) 10/14/18 11:45 Sodium 134.0 mmol/L (132-148) 10/14/18 11:45 Chloride 96.0 mmol/L (98-107) L 10/14/18 11:45 Glucose 127 mg/dl (65-105) H 10/14/18 11:45 Lactate 1.9 mmol/L (0.7-2.1) 10/14/18 11:45 FiO2 21.0 % 10/14/18 11:45 I have reviewed the lab results: Yes - RAD Interpretation Narrative RAD Interpretations (Text): 10/14/18 13:16 Chest-X-Ray Impression: Interval improvement without complete resolution of bilateral lower lobe infiltrates. Radiology Orders: 10/14/18 11:57 CXR [CHEST TWO VIEWS (PA/LAT)] [RAD] Stat 10/14/18 11:58 LUNG PERF & VENT SCAN [NM] Stat Lace Paper Machine Operator: Radiologist - EKG Interpretation EKG Interpretation (Text): 10/14/18 12:17 ekg my read: sinus rhythm at 83 bpm, nml qrs, nml axis, lateral t wave inversion; findings unchanged from prior ekg on 09.29.2018 Interpreted by ED Physician: Yes - Scribe Statement The provider has reviewed the documentation as recorded by the Scribe Lakisha Longoria All medical record entries made by the Scribe were at my direction and personally dictated by me. I have reviewed the chart and agree that the record accurately reflects my personal performance of the history, physical exam, medical decision making, and the department course for this patient. I have also personally directed, reviewed, and agree with the discharge instructions and disposition. Disposition/Present on Arrival - Present on Arrival Any Indicators Present on Arrival: No History of DVT/PE: No History of Uncontrolled Diabetes: No Urinary Catheter: No History of Decub. Ulcer: No History Surgical Site Infection Following: None - Disposition Have Diagnosis and Disposition been Completed?: Yes Diagnosis: Abnormal EKG, Elevated troponin Disposition: HOSPITALIZED Disposition Time: 17:20 Patient Plan: Observation Patient Problems: Current Active Problems Problem Status Onset Abnormal EKG Acute Elevated troponin Acute Condition: STABLE
[2018-10-14 12:18] LABS: BASO # 0.05 K/mm3 (0.0-2.0); BASO % 0.7 % (0.0-3.0); EOS # 0.1 (0.0-0.7); EOS % 1.2 % (1.5-5.0); HEMOGLOBIN 9.1 g/dL (12.0-16.0); LYMPH # 0.9 (1.2-3.4); LYMPH % 11.3 % (22.0-35.0); MEAN CELL VOLUME 98.2 fl (80.0-105.0); MEAN CORPUSCULAR HEMOGLOBIN 32.9 pg (25.0-35.0); MEAN CORPUSCULAR HGB CONC 33.5 g/dl (31.0-37.0); MEAN PLATELET VOLUME 9.6 fl (7.0-11.0); MONO # 1.1 (0.1-0.6); MONO % 14.1 % (1.0-6.0); RBC 2.77 10^6/uL (3.5-6.1); RED CELL DISTRIBUTION WIDTH 13.4 % (11.5-14.5); WHITE BLOOD COUNT 7.5 10^3/uL (4.5-11.0)
[2018-10-14 12:21] LABS: ALB/GLOB RATIO 1.2 (1.1-1.8); ALBUMIN 3.9 g/dL (3.0-4.8); CALCIUM 9.4 mg/dL (8.4-10.5)
[2018-10-14 12:23] LABS: INR 1.07; PARTIAL THROMBOPLASTIN TIME 26.1 Seconds (26.9-38.3); PROTHROMBIN TIME 12.1 SECONDS (9.4-12.5)
[2018-10-14 12:32] LABS: TROPONIN I 0.44 ng/mL
--- NOTE | 2018-10-14 13:19 | RAD ---
Date of service: 10/14/2018 HISTORY: Hemoptysis. COMPARISON: 09/27/2018. Two-view chest. 09/28/2018 CT thorax. TECHNIQUE: Chest PA and lateral views FINDINGS: LUNGS: Residual infiltrates primarily affecting the right lower lobe and to lesser extent left lower lobe. PLEURA: Small right pleural effusion inseparable from adjacent consolidative change. CARDIOVASCULAR: Atherosclerotic calcifications identified primarily aortic arch. Remainder of the thoracic aorta is tortuous. Normal cardiac size. No pulmonary vascular congestion. OSSEOUS STRUCTURES: No significant abnormalities. VISUALIZED UPPER ABDOMEN: Normal. OTHER FINDINGS: None. IMPRESSION: Interval improvement without complete resolution of bilateral lower lobe infiltrates.
--- NOTE | 2018-10-14 15:21 | NM ---
Date of service: 10/14/2018 COMPARISON: October 14, 2018. TECHNIQUE: 35.0 mCi technetium 99-m DTPA aerosol. 3.5 mCI technetium 99-m MAA administered intravenously. FINDINGS: VENTILATION COMPONENT: Heterogeneous ventilation consistent with findings on concurrent chest x-ray. PERFUSION COMPONENT: Heterogeneous distribution of radionuclide. No geographic, segmental, lobar abnormalities apparent on the present examination. IMPRESSION: Low probability ventilation perfusion scan for pulmonary embolism.
--- NOTE | 2018-10-14 19:29 | CARD ---
APPROVED REPORT Date of service: 10/14/2018 EKG Measurement Heart [id number] <Conclusion> Sinus rhythm with 1st degree AV block Possible Left atrial enlargement ST & T wave abnormalities Abnormal ECG
[2018-10-14] MEDS: Budesonide 0.5 mg/2 ml Inhal Susp UD IH SCH (20:17)
[2018-10-14] MEDS: Arformoterol 15 mcg/2 ml Inh Sol IH SCH (20:17)
[2018-10-14] MEDS: Albuterol-Ipratrop 3 mg / 0.5 (3 ml) UD IH SCH (20:17)
[2018-10-14] MEDS ORDERED: Cefepime 0.5 GM in Sodium Chloride 0.9% 100 ML IVPB SCH (21:00)
[2018-10-15] MEDS: Albuterol-Ipratrop 3 mg / 0.5 (3 ml) UD IH SCH ×4 (01:55→20:35)
--- NOTE | 2018-10-15 02:08 | HP ---
DATE OF EXAM: 10/14/2018 HISTORY OF PRESENT ILLNESS: The patient is a 78-year-old, who came to emergency room because of shortness of breath. She did have couple of episodes of hemoptysis. Denies any fever or chills. No history of nausea or vomiting. The patient was recently admitted on 09/28/2018 and she was found to have community-acquired pneumonia. She received a course of antibiotics and was sent home. PAST MEDICAL HISTORY: Significant for: 1. Hypertension. 2. Cardiomyopathy. 3. End-stage renal disease, on hemodialysis. 4. Hepatitis C. 5. Chronic anemia. FAMILY HISTORY: Significant for hypertension. SOCIAL HISTORY: Denies smoking, drinking, or alcohol use. MEDICATIONS AT HOME: She is on DuoNeb. She is on amlodipine, metoprolol 25 mg every 12 hours, doxycycline 100 mg twice a day, Plavix 75 mg daily, PhosLo 667 mg with meals and she is on and clonidine. PHYSICAL EXAMINATION: GENERAL: She looks comfortable. VITAL SIGNS: She is afebrile, pulse 75, respirations 19, and blood pressure 121/75. LUNGS: Decreased breath sounds in the right lower lung area. HEART: S1 and S2 audible. ABDOMEN: Soft and nontender. No rebound. No guarding. NEUROLOGIC: She is awake, alert, and able to communicate. LABORATORY DATA: WBC of 7.5, hemoglobin of 9.1, hematocrit of 27.2, and platelet of 198. Chemistries; sodium of 136, potassium of 4.4, chloride of 93, CO2 of 29, BUN of 58, creatinine of 8.2, and blood sugar of 127. LFTs are within normal limits. Troponin is 0.44. BNP is 166,000. She had V/Q scan done that shows low probability for pulmonary embolism. However, x-ray chest shows residual infiltrate in the right lower lobe area, less so in the left lower . ASSESSMENT: 1. Resolving pneumonia. 2. Hemoptysis. 3. History of hypertension. 4. End-stage renal disease, on hemodialysis. 5. Chronic anemia. PLAN: The patient is being admitted. We will start on IV antibiotics. Start on nebulizer treatment. Cardiology consult by Dr. Blevins and Dr. Levine for consult. Andrea Ortiz MD [facility] # [id number]
[2018-10-15] MEDS: Budesonide 0.5 mg/2 ml Inhal Susp UD IH SCH ×2 (07:59→20:35)
[2018-10-15] MEDS: Arformoterol 15 mcg/2 ml Inh Sol IH SCH ×2 (07:59→20:35)
--- NOTE | 2018-10-15 11:15 | CON ---
DATE: 10/15/2018 REQUESTING PHYSICIAN: Dr. Barbour. REASON FOR CONSULTATION: Dyspnea. HISTORY OF PRESENT ILLNESS: This is a 78-year-old woman known to me from prior admission, at which time, she presented with hemoptysis, pneumonia, and a [id number] elevation myocardial infarction. She was noted to have a significant aortic stenosis at that time, as well as wall motion abnormalities. Plans were being made for elective catheterization after a full recovery from a pneumonia. Yesterday, she became concerned because of a persistent dyspnea and a cough productive of scant blood-streaked sputum. She was concerned that she had recurrence of her pneumonia and was admitted. She has had some progressive dyspnea. PAST MEDICAL HISTORY: Her past history is notable for the problems mentioned above. She does have chronic renal failure and she is maintained on hemodialysis on Monday, Monday, and Monday. She has a history of hypertension as well. She has had an AV fistula placed in her right arm in the past. CURRENT MEDICATIONS: Her current medications include Brovana, Catapres, cefepime, doxycycline, DuoNeb inhaler, metoprolol 25 mg every 12 hours, Norvasc 10 mg daily, PhosLo, Plavix 75 mg daily, and Pulmicort. ALLERGIES: SHE HAS HAD REACTIONS TO PEANUTS IN THE PAST, BUT NO DRUG ALLERGIES. SOCIAL HISTORY: She does not smoke or drink. FAMILY HISTORY: Both parents are from age-related illnesses. There is no family history of premature heart disease. REVIEW OF SYSTEMS: A 12-point review of systems is notable for occasional back pain and fatigue. She denies any PND or orthopnea. PHYSICAL EXAMINATION: GENERAL: She is an elderly woman, who appears comfortable at the present time. VITAL SIGNS: Her blood pressure is 134/72, with a pulse of 60 in sinus, respirations are 14. She is afebrile. HEENT: Normocephalic, atraumatic. NECK: Supple. No JVD noted. Carotid upstrokes are diminished and delayed. CHEST: The chest reveals a few scattered rhonchi. HEART: PMI displaced bilaterally with a systolic murmur at the left sternal border as well as at the base radiating to the carotids. ABDOMEN: The abdomen is soft, nontender, with normoactive bowel sounds. EXTREMITIES: There is a functional fistula present in the right upper extremity. No lower extremity edema is noted. SKIN: Warm and dry. PSYCHIATRIC: Normal mood and affect. NEUROLOGICAL: Alert and oriented x3. No gross motor or sensory deficits notable. DIAGNOSTIC DATA: White count is 7.5, hemoglobin and hematocrit of 9.1 and 27.2 with a platelet count of 198,000. PT/PTT 12.1 and 26.1. Venous blood gas; A pH of 7.46, pCO2 of 46, pO2 of 49, potassium 4.4, BUN and creatinine are 58 and 8.2. Troponin is 0.44. BNP is 166,000. Electrocardiogram reveals sinus rhythm with first-degree AV block and LVH with repolarization abnormalities. Chest x-ray reveals improving patchy infiltrates at the right lower lobe and VQ scan was performed and was low probability for pulmonary embolus. IMPRESSION: 1. Dyspnea, likely secondary to aortic valve disease and probable coronary artery disease. 2. Moderately severe aortic stenosis. 3. Probable coronary artery disease status post a recent [id number] elevation myocardial infarction. 4. Chronic renal failure, on hemodialysis. 5. Resolving pneumonia. RECOMMENDATIONS: Plans will be made for a right and left heart catheterization and possible PCI within the next week or so. This can be done as an outpatient. Further plans will be made based upon those findings and a possible PCI and/or intervention on her aortic valve will likely be necessary. The option of surgical versus transcatheter aortic valve replacement was reviewed with her as well. From a cardiac standpoint, she appears stable for discharge to home at this time and outpatient catheterization will be arranged shortly. Thank you for this consultation. Shoaib Blevins MD
--- NOTE | 2018-10-15 12:41 | CP.PCM.CON ---
<Cachorro Loyola - Last Filed: 10/15/18 17:29> History of Present Illness - History of Present Illness History of Present Illness: Infectious disease consult note: 78-year-old male with past medical history of ESRD on HD, CAD, hypertension, anemia, cataracts, asthma, and CVA presents to the ED with shortness of breath and cough. Patient states that for the past 5 days her cough has been getting progressively worse. Patient states that she was just here recently discharged from the hospital September 28 and was treated for community-acquired pneumonia. She now complains of having shortness of breath accompanied with cough and bloody tinged mucus production. Infectious diseases been consulted for pneumoniahemoptysis. She denies any chest pain at this time. No other complaints 12 point ROS performed negative other than stated above PMH: As above SH: Denies any smoking, drinking, or drug use FH: Significant for hypertension MED: Refer to MAR All: Peanut Review of Systems - Review of Systems All systems: reviewed and no additional remarkable complaints except Past Patient History - Infectious Disease Hx of Infectious Diseases: None - Past Social History Smoking Status: Never Smoked - CARDIAC Hx Hypertension: Yes Hx Pacemaker: No - PULMONARY Hx Respiratory Disorders: Yes - NEUROLOGICAL Hx Neurological Disorder: No Hx Alzheimer's Disease: No HX Cerebrovascular Accident: No Hx Dementia: No Hx Dizziness: No Hx Meningitis: No Hx Migraine: No Hx Parkinson's Disease: No Hx Seizures: No Hx Transient Ischemic Attacks (TIA): No - HEENT Hx HEENT Problems: Yes Hx Cataracts: Yes (right eye) - RENAL Hx Chronic Kidney Disease: Yes Hx Dialysis: Yes (MWF) Hx Renal Failure: Yes - ENDOCRINE/METABOLIC Hx Endocrine Disorders: No - HEMATOLOGICAL/ONCOLOGICAL Hx Blood Disorders: No Hx AIDS: No Hx Anemia: No Hx Cancer: No Hx Chemotherapy: No Hx Cirrhosis: No Hx Hepatitis A: No Hx Hepatitis B: No Hx Hepatitis C: No Hx Human Immunodeficiency Virus (HIV): No Hx Metastesis: No Hx Shingles: No Hx Unexplained Bleeding: No - INTEGUMENTARY Hx Dermatological Problems: No - MUSCULOSKELETAL/RHEUMATOLOGICAL Hx Falls: Yes - GASTROINTESTINAL Hx Gastrointestinal Disorders: No - GENITOURINARY/GYNECOLOGICAL Hx Genitourinary Disorders: No - PSYCHIATRIC Hx Emotional Abuse: No Hx Physical Abuse: No - SURGICAL HISTORY Hx Surgeries: Yes Other/Comment: R AV Fistula for HD - ANESTHESIA Hx Anesthesia: Yes Hx Anesthesia Reactions: No Hx Malignant Hyperthermia: No Meds Allergies/Adverse Reactions: Allergies Allergy/AdvReac Type Severity Reaction Status Date / Time peanut Allergy Severe ANAPHYLAXIS Verified 10/14/18 11:21 - Medications Medications: Current Medications Albuterol/Ipratropium (Duoneb 3 Mg/0.5 Mg (3 Ml) Ud) 3 ml IH [id number] [facility] Last Admin: 10/15/18 07:59 Dose: 3 ml Amlodipine Besylate (Norvasc) 10 mg PO DAILY [facility] Last Admin: 10/15/18 10:18 Dose: 10 mg Arformoterol Tartrate (Brovana) 15 mcg IH [id number] [facility] Last Admin: 10/15/18 07:59 Dose: 15 mcg Budesonide (Pulmicort Respules) 0.5 mg IH [id number] [facility] Last Admin: 10/15/18 07:59 Dose: 0.5 mg Calcium Acetate (Phoslo) 667 mg PO WM [facility] Last Admin: 10/15/18 08:17 Dose: 667 mg Clonidine HCl (Catapres) 0.1 mg PO Q8 [facility] Last Admin: 10/15/18 06:02 Dose: 0.1 mg Clopidogrel Bisulfate (Plavix) 75 mg PO DAILY [facility] Last Admin: 10/15/18 10:19 Dose: 75 mg Cefepime HCl 0.5 gm/ Sodium (Chloride) 100 mls @ 200 mls/hr IVPB 2100 [facility]; Protocol Last Admin: 10/14/18 20:56 Dose: 200 mls/hr Doxycycline Hyclate 100 mg/ (Sodium Chloride) 100 mls @ 100 mls/hr IVPB Q12 [facility]; Protocol Last Admin: 10/15/18 10:18 Dose: 100 mls/hr Metoprolol Tartrate (Lopressor) 25 mg PO Q12 [facility] Last Admin: 10/15/18 10:19 Dose: 25 mg Physical Exam - Constitutional Appears: No Acute Distress - Head Exam Head Exam: ATRAUMATIC, NORMOCEPHALIC - Eye Exam Eye Exam: EOMI, PERRL - ENT Exam ENT Exam: Mucous Membranes Moist - Respiratory Exam Respiratory Exam: Clear to Auscultation Bilateral. absent: Wheezes - Cardiovascular Exam Cardiovascular Exam: REGULAR RHYTHM, +S1, +S2 - GI/Abdominal Exam GI & Abdominal Exam: Normal Bowel Sounds, Soft - Extremities Exam Extremities exam: Negative for: calf tenderness, pedal edema - Neurological Exam Neurological exam: Alert, CN II-XII Intact, Oriented x3 - Psychiatric Exam Psychiatric exam: Normal Mood - Skin Skin Exam: Dry, Warm Results - Vital Signs Recent Vital Signs: Last Vital Signs Temp 97.7 F 10/15/18 05:28 Pulse 62 10/15/18 10:19 Resp 19 10/15/18 05:28 BP 137/70 10/15/18 10:19 Pulse Ox 99 10/15/18 05:28 - Labs Result Diagrams: 10/14/18 11:30 10/14/18 11:30 Labs: Laboratory Results - last 24 hr 10/14/18 11:30 NT-Pro-B Natriuret Pep [id number] H Assessment & Plan - Assessment and Plan (Free Text) Assessment: 1. Dyspnea possible 2/2 HCAP vs heart failure vs mod - severe aortic stenosis 2. Acute on chronic systolic heart failure 3. ESRD on HD 4. Hep C 5. Chronic anemia 6. Mod- severe Aortic stenosis Continue with cefepime and doxycycline for her pneumonia Follow-up septic work-up, f/u procal Chest x-ray shows improvement of bilateral lower infiltrate from prior visit Follow-up cardiology recommendations Continue monitor for any changes Case and plan will be reviewed and discussed with Dr. Levine <Armen Levine - Last Filed: 10/15/18 17:31> Meds - Medications Medications: Current Medications Albuterol/Ipratropium (Duoneb 3 Mg/0.5 Mg (3 Ml) Ud) 3 ml IH [id number] [facility] Last Admin: 10/15/18 13:46 Dose: 3 ml Amlodipine Besylate (Norvasc) 10 mg PO DAILY [facility] Last Admin: 10/15/18 10:18 Dose: 10 mg Arformoterol Tartrate (Brovana) 15 mcg IH [id number] [facility] Last Admin: 10/15/18 07:59 Dose: 15 mcg Budesonide (Pulmicort Respules) 0.5 mg IH [id number] [facility] Last Admin: 10/15/18 07:59 Dose: 0.5 mg Calcium Acetate (Phoslo) 667 mg PO WM [facility] Last Admin: 10/15/18 08:17 Dose: 667 mg Clonidine HCl (Catapres) 0.1 mg PO Q8 [facility] Last Admin: 10/15/18 06:02 Dose: 0.1 mg Clopidogrel Bisulfate (Plavix) 75 mg PO DAILY [facility] Last Admin: 10/15/18 10:19 Dose: 75 mg Doxycycline Hyclate (Doryx) 100 mg PO Q12 [facility]; Protocol Cefepime HCl 1 gm/ Sodium (Chloride) 100 mls @ 200 mls/hr IVPB 2100 [facility]; Protocol Metoprolol Tartrate (Lopressor) 25 mg PO Q12 [facility] Last Admin: 10/15/18 10:19 Dose: 25 mg Results - Vital Signs Recent Vital Signs: Last Vital Signs Temp 97.3 F L 10/15/18 12:00 Pulse 60 10/15/18 12:00 Resp 20 10/15/18 12:00 BP 130/69 10/15/18 12:00 Pulse Ox 99 10/15/18 05:28 - Labs Result Diagrams: 10/14/18 11:30 10/14/18 11:30 Attending/Attestation - Attestation I have personally seen and examined this patient.: Yes I have fully participated in the care of the patient.: Yes I have reviewed all pertinent clinical information: Yes
[2018-10-15] MEDS ORDERED: Doxercalciferol 4 mcg/2 ml Inj IV ONE (14:06)
--- NOTE | 2018-10-15 18:06 | CP.PCM.PN ---
<Demarcus Dinero - Last Filed: 10/15/18 18:02> Subjective - Date & Time of Evaluation Date of Evaluation: 10/15/18 Time of Evaluation: 08:30 - Subjective Subjective: Demarcus Dinero D.O. PGY-3, Internal Medicine Resident, Dr. Barbour Service Progress Note 78 year old female with past medical history of ESRD on HD M/W/F, CAD, hypertension, anemia, who presented with shortness of breath and cough. Patient was seen and examined at bedside. States that her breathing is better. Still having some cough. No more hemoptysis. Objective - Vital Signs/Intake and Output Vital Signs (last 24 hours): Temp Pulse Resp BP Pulse Ox 97.3 F L 60 20 130/69 99 10/15/18 12:00 10/15/18 12:00 10/15/18 12:00 10/15/18 12:00 10/15/18 05:28 Intake and Output: 10/15/18 10/15/18 06:59 18:59 Intake Total 240 Balance 240 - Medications Medications: Current Medications Albuterol/Ipratropium (Duoneb 3 Mg/0.5 Mg (3 Ml) Ud) 3 ml IH [id number] [facility] Last Admin: 10/15/18 13:46 Dose: 3 ml Amlodipine Besylate (Norvasc) 10 mg PO DAILY [facility] Last Admin: 10/15/18 10:18 Dose: 10 mg Arformoterol Tartrate (Brovana) 15 mcg IH [id number] [facility] Last Admin: 10/15/18 07:59 Dose: 15 mcg Budesonide (Pulmicort Respules) 0.5 mg IH [id number] [facility] Last Admin: 10/15/18 07:59 Dose: 0.5 mg Calcium Acetate (Phoslo) 667 mg PO WM [facility] Last Admin: 10/15/18 08:17 Dose: 667 mg Clonidine HCl (Catapres) 0.1 mg PO Q8 [facility] Last Admin: 10/15/18 06:02 Dose: 0.1 mg Clopidogrel Bisulfate (Plavix) 75 mg PO DAILY [facility] Last Admin: 10/15/18 10:19 Dose: 75 mg Doxycycline Hyclate (Doryx) 100 mg PO Q12 [facility]; Protocol Cefepime HCl 1 gm/ Sodium (Chloride) 100 mls @ 200 mls/hr IVPB 2100 [facility]; Protocol Metoprolol Tartrate (Lopressor) 25 mg PO Q12 [facility] Last Admin: 10/15/18 10:19 Dose: 25 mg - Labs Labs: 10/14/18 11:30 10/14/18 11:30 PT 12.1 SECONDS (9.4-12.5) 10/14/18 11:30 INR 1.07 10/14/18 11:30 APTT 26.1 Seconds (26.9-38.3) L 10/14/18 11:30 - Constitutional Appears: Non-toxic, No Acute Distress - Head Exam Head Exam: ATRAUMATIC, NORMOCEPHALIC - Eye Exam Eye Exam: EOMI. absent: Scleral icterus - ENT Exam ENT Exam: Mucous Membranes Moist - Respiratory Exam Respiratory Exam: Clear to Ausculation Bilateral, Rhonchi (RLL). absent: Rales - Cardiovascular Exam Cardiovascular Exam: +S1, +S2. absent: Rubs - GI/Abdominal Exam GI & Abdominal Exam: Soft, Normal Bowel Sounds. absent: Tenderness - Neurological Exam Neurological Exam: Alert, Awake, Oriented x3 - Psychiatric Exam Psychiatric exam: Normal Affect, Normal Mood - Skin Skin Exam: Dry, Warm Assessment and Plan - Assessment and Plan (Free Text) Assessment: 78 year old female with past medical history of ESRD on HD M/W/F, CAD, hypertension, anemia, who presented with shortness of breath and cough. Plan: Resolving pneumonia with hemoptysis End-stage renal disease on hemodialysis Monday/Monday/Monday CAD with positive troponins Cardiomyopathy Chronic normocytic anemia Hypertension Currently on cefepime and doxycycline. No fever. No leukocytosis. Hemoptysis could be related postinfectious coughing. Breathing has improved. Continue nebs. Troponins possibly related to her renal dysfunction and/or coronary artery disease. Patient was seen by cardiology who advises outpatient elective cath. Hemoglobin has been stable. Hemodynamically stable. Will follow up recommendations. Pending pro calcitonin. For dialysis today. Consent was obta ined. Pending nephrology consultation and recommendations. Chest x-ray showed resolving bibasilar infiltrates. Patient was seen and examined and case discussed with attending physician. <Brodie Barbour - Last Filed: 10/15/18 21:10> Objective - Vital Signs/Intake and Output Vital Signs (last 24 hours): Temp Pulse Resp BP Pulse Ox 97.3 F L 60 20 130/69 99 10/15/18 12:00 10/15/18 18:00 10/15/18 12:00 10/15/18 12:00 10/15/18 05:28 Intake and Output: 10/15/18 10/16/18 18:59 06:59 Intake Total 100 838 Balance 100 838 - Medications Medications: Current Medications Albuterol/Ipratropium (Duoneb 3 Mg/0.5 Mg (3 Ml) Ud) 3 ml IH [id number] [facility] Last Admin: 10/15/18 20:35 Dose: 3 ml Amlodipine Besylate (Norvasc) 10 mg PO DAILY [facility] Last Admin: 10/15/18 10:18 Dose: 10 mg Arformoterol Tartrate (Brovana) 15 mcg IH [id number] [facility] Last Admin: 10/15/18 20:35 Dose: 15 mcg Budesonide (Pulmicort Respules) 0.5 mg IH [id number] [facility] Last Admin: 10/15/18 20:35 Dose: 0.5 mg Calcium Acetate (Phoslo) 667 mg PO WM [facility] Last Admin: 10/15/18 18:24 Dose: 667 mg Clonidine HCl (Catapres) 0.1 mg PO Q8 [facility] Last Admin: 10/15/18 14:00 Dose: Not Given Clopidogrel Bisulfate (Plavix) 75 mg PO DAILY [facility] Last Admin: 10/15/18 10:19 Dose: 75 mg Doxycycline Hyclate (Doryx) 100 mg PO Q12 [facility]; Protocol Cefepime HCl 1 gm/ Sodium (Chloride) 100 mls @ 200 mls/hr IVPB 2100 [facility]; Protocol Metoprolol Tartrate (Lopressor) 25 mg PO Q12 [facility] Last Admin: 10/15/18 10:19 Dose: 25 mg - Labs Labs: 10/14/18 11:30 10/14/18 11:30 PT 12.1 SECONDS (9.4-12.5) 10/14/18 11:30 INR 1.07 10/14/18 11:30 APTT 26.1 Seconds (26.9-38.3) L 10/14/18 11:30 Assessment and Plan - Assessment and Plan (Free Text) Plan: Pt seen and examined by me. I have reviewed the note of the medical appointment clerk and I agree with it. I have discussed the assessment and plan with the resident. I have reviewed the medications and the last labs.
--- NOTE | 2018-10-15 19:28 | CON ---
DATE OF CONSULTATION: 10/15/2018 REASON FOR CONSULTATION: Cough, hemoptysis, ESRD. HISTORY OF PRESENTING ILLNESS: A 78-year lady, known to me from outpatient hemodialysis. The patient was recently discharged from [facility] on 10/01 when she was admitted for similar complaints of cough, bloody sputum, dyspnea on exertion. The patient was found to have multilobar pneumonia, she was also found to have decompensated congestive heart failure. The patient was treated with IV antibiotics. She was discharged. The patient reports that she started having similar symptoms again. She was coughing. She had pinkish sputum, so she came to the emergency room yesterday. In the emergency room, she was found to be somewhat hypertensive, blood pressure of 157/71, afebrile. Her heart rate was 90. Her hemoglobin was 9.1. Her BNP was 166,000. Her troponin was elevated at 0.44. Her V/Q scan was low probability for PE. The patient was seen by Cardiology. The patient is thought to have decompensated congestive heart failure, non-ST elevation [place],? Plan is for cardiac catheterization. Currently, she is comfortable. She is lying in bed. She reports her cough is much better. She denies any chest tightness. PAST MEDICAL AND SURGICAL HISTORY: Severe hypertension, cardiomyopathy, CHF, ESRD, hepatitis C, chronic anemia, secondary hyperparathyroidism, CVA, recent multilobar pneumonia. FAMILY HISTORY: Noncontributory. SOCIAL HISTORY: No smoking, no alcohol use, no IV drug abuse. ALLERGIES: PEANUTS. MEDICATIONS AT HOME: Included amlodipine 10 mg daily, metoprolol 25 b.i.d., Edarbi 40, clonidine 0.1, Plavix 75, PhosLo. REVIEW OF SYSTEMS: Currently, the patient denies any chest pain. She denies any shortness of breath. She denies any cough. All other systems are reviewed and unremarkable. PHYSICAL EXAMINATION: GENERAL: Elderly lady lying in bed. VITAL SIGNS: Blood pressure 130/69, heart rate 60, respiratory rate 20, temperature 97.3. HEENT: Normocephalic, atraumatic, positive pallor. NECK: Supple, no JVD. LUNGS: Bilateral rhonchi, bilateral basilar rales, no other sounds. CARDIAC: S1 and S2, regular rate and rhythm, positive murmur in left sternal border, no rub. ABDOMEN: Soft, nondistended, nontender, bowel sounds present. EXTREMITIES: No lower extremity edema. LABORATORY DATA: WBC 7.5, hemoglobin 9, hematocrit 27, platelets 198. Sodium 136, potassium 4.4, chloride 93, CO2 of 29, BUN 58, creatinine 8.2, glucose 127, calcium 9.4, troponin 0.44, BNP 166,000, albumin 3.9. CURRENT MEDICATIONS: Brovana, Catapres 0.1 every 8 hours, cefepime 0.5 daily, doxycycline 100 every 12 hours, DuoNeb, Lopressor 25 every 12 hours, amlodipine 10, PhosLo, Pulmicort. ASSESSMENT: 1. Non-ST elevation myocardial infarction. 2. Congestive heart failure, decompensated. 3. Recent multilobar pneumonia. 4. Severe aortic stenosis. 5. End-stage renal disease. 6. Anemia of chronic kidney disease. 7. Secondary hyperparathyroidism. PLAN: 1. Dialysis today, ultrafiltrate 1.5 kg if possible. 2. Continue antihypertensives. 3. Continue phosphate binders. 4. Agree with plan for cardiac catheterization. 5. Discuss with the patient at bedside Marina Shelton MD
[2018-10-15] MEDS: Cefepime 1 GM in Sodium Chloride 0.9% 100 ML IVPB SCH (21:28)
[2018-10-16] MEDS: Albuterol-Ipratrop 3 mg / 0.5 (3 ml) UD IH SCH ×4 (01:19→20:50)
--- NOTE | 2018-10-16 04:39 | HP ---
DATE OF EXAM: 10/15/2018 HOSPITAL COURSE: The patient was seen and examined. I do agree with the note of the certified medical assistant. I was involved in the plan of care. The patient came into the hospital complaining of hemoptysis. She was recently discharged from the hospital because of hospital-acquired pneumonia. She had a chest x-ray that is improving. She is due for dialysis today. She has end-stage renal disease, on hemodialysis. She has coronary artery disease and has been seen by Dr. Blevins, her fashion adviser. The patient is going to need a cardiac stress to be done as an outpatient. Dr. Blevins will plan for that. The patient has hypertension. She is going to be seen by Dr. Shelton from Nephrology. She is on cefepime for her antibiotics. She is on Norvasc for her hypertension. She is on calcium acetate for secondary hyperparathyroidism. She is on Catapres patch for her hypertension as well. She has blood cultures that are pending. She had a non-ST elevation NM according to Cardiology. She had an echocardiogram that was done 3 weeks ago. I am sure that she has moderate concentric LVH, biatrial enlargement. There is [id number] aortic stenosis. Brodie Barbour MD
[2018-10-16] MEDS: Budesonide 0.5 mg/2 ml Inhal Susp UD IH SCH ×2 (07:12→20:51)
[2018-10-16] MEDS: Arformoterol 15 mcg/2 ml Inh Sol IH SCH ×2 (07:12→20:51)
[2018-10-16 07:29] LABS: BASO # 0.07 K/mm3 (0.0-2.0); BASO % 1.7 % (0.0-3.0); EOS # 0.1 (0.0-0.7); EOS % 2.1 % (1.5-5.0); HEMOGLOBIN 8.2 g/dL (12.0-16.0); LYMPH # 0.8 (1.2-3.4); MEAN CELL VOLUME 99.6 fl (80.0-105.0); MEAN CORPUSCULAR HEMOGLOBIN 32.3 pg (25.0-35.0); MEAN CORPUSCULAR HGB CONC 32.4 g/dl (31.0-37.0); MEAN PLATELET VOLUME 9.2 fl (7.0-11.0); MONO # 0.8 (0.1-0.6); MONO % 19.8 % (1.0-6.0); RBC 2.54 10^6/uL (3.5-6.1); RED CELL DISTRIBUTION WIDTH 13.7 % (11.5-14.5); WHITE BLOOD COUNT 4.2 10^3/uL (4.5-11.0)
[2018-10-16 07:45] LABS: ALB/GLOB RATIO 1.1 (1.1-1.8); ALBUMIN 3.4 g/dL (3.0-4.8); CALCIUM 9.4 mg/dL (8.4-10.5)
--- NOTE | 2018-10-16 10:27 | PN ---
DATE: 10/16/2018 SUBJECTIVE: The patient has no complaints of any chest pain. No shortness of breath. No headache. PHYSICAL EXAMINATION: VITAL SIGNS: Temperature is 97.8, pulse is 63, blood pressure 127/61, respirations 20. GENERAL: The patient is lying in bed, flat, comfortable. HEENT: No oral lesion. Anicteric sclerae. Moist mucosa. NECK: No JVD, adenopathy, or thyromegaly. CARDIOVASCULAR: S1 and S2, regular. No murmurs, rubs, or gallops. LUNGS: Clear to auscultation bilaterally. No wheeze, rales, or rhonchi. ABDOMEN: Bowel sounds are positive, soft, nontender and nondistended. EXTREMITIES: No cyanosis, clubbing or edema. LABORATORY DATA: White count of 4.2, hemoglobin 8.2, creatinine is 5.9. ASSESSMENT: 1. Hospital-acquired pneumonia. 2. Coronary artery disease. 3. Hypertension. 4. Secondary hypoparathyroidism. 5. Hemoptysis, resolved. 6. End-stage renal disease, on hemodialysis. 7. Hepatitis C. 8. Aortic stenosis. 9. Non-ST elevation myocardial infarction. 10. Left ventricular hypertrophy. PLAN: The patient is on Brovana for breathing. She is on Catapres for hypertension. She is on Hectorol. The patient is on cefepime for IV antibiotics. The patient is on Norvasc for hypertension. The patient is on PhosLo for secondary hyperparathyroidism. She is on renal diet. I will discontinued telemetry. I did speak to Dr. Levine, and the patient is going to continue with the IV antibiotics. She is scheduled for a cardiac cath in [address] Blevins. I did speak to Dr. Barry, the patient's primary to give an update. Brodie Barbour MD
--- NOTE | 2018-10-16 13:07 | PN ---
DATE: 10/16/2018 SUBJECTIVE: The patient is seen sitting in bed on telemetry. She is feeling better. Her dyspnea is improved, although she does notice occasional orthopnea. She is tentatively scheduled for cardiac catheterization as an outpatient on Monday. PHYSICAL EXAMINATION: GENERAL: She is an elderly woman who is comfortable at the present time. VITAL SIGNS: Blood pressure is 132/60 with pulse of 66 and sinus, respirations are 14. She is afebrile. HEENT: Diminished and delayed carotid upstrokes. HEART: PMI displaced laterally with a mid to late peaking systolic murmur at the base radiating to the carotids as well as systolic murmur at the apex. CHEST: Bilateral scattered rhonchi heard. ABDOMEN: Soft, nontender with normoactive bowel sounds. EXTREMITIES: No edema. DIAGNOSTIC DATA: Potassium 4.7, BUN and creatinine 38 and 5.9. White count is 4.2, hemoglobin and hematocrit 8.2 and 25.3 with platelet count of 161,000. CURRENT MEDICATIONS: Include Brovana, Catapres, cefepime, doxycycline, DuoNeb inhaler, metoprolol 25 mg every 12 hours, Norvasc 10 mg daily, Plavix, Pulmicort inhaler. IMPRESSION: 1. Recent dyspnea, cough, suspect this is primarily cardiac secondary to her valvular heart disease and probable coronary artery disease. 2. Moderately severe aortic stenosis. 3. Recent non-ST segment lesion myocardial infarction with left ventricular dysfunction. 4. Chronic renal failure, maintained on hemodialysis. RECOMMENDATIONS: From a cardiac standpoint, she appears stable for discharge home. At this time, we will present to the collaborating supervising physician on Monday for a right and left heart catheterization and possible PCI. Arrangements are being made for coordination of dialysis on that day. Continued sodium and fluid restriction were advised. Further plans are made based upon the results of the catheterization. Shoaib Blevins MD [facility]
--- NOTE | 2018-10-16 13:15 | CP.PCM.APN ---
Subjective - Date & Time of Evaluation Date of Evaluation: 10/16/18 Time of Evaluation: 09:30 - Subjective Subjective: pt seen and examined a t bedside, pt in NAD , pt reports feeling better. pt is s/p HD session yesterday Review of Systems - Constitutional Constitutional: As Per HPI Objective - Vital Signs/Intake and Output Vital Signs (last 24 hours): Temp Pulse Resp BP Pulse Ox 98.2 F 65 20 134/65 98 10/16/18 12:00 10/16/18 12:00 10/16/18 12:00 10/16/18 12:00 10/16/18 05:38 Intake and Output: 10/16/18 10/16/18 06:59 18:59 Intake Total 1178 Balance 1178 - Medications Medications: Current Medications Albuterol/Ipratropium (Duoneb 3 Mg/0.5 Mg (3 Ml) Ud) [id number] [facility] Last Admin: 10/16/18 07:12 Dose: 3 ml Amlodipine Besylate (Norvasc) [address] [facility] Last Admin: 10/16/18 09:43 Dose: 10 mg Arformoterol Tartrate (Brovana) [id number] [facility] Last Admin: 10/16/18 07:12 Dose: 15 mcg Budesonide (Pulmicort Respules) 0.[id number] [facility] Last Admin: 10/16/18 07:12 Dose: 0.5 mg Calcium Acetate (Phoslo) [address] [facility] Last Admin: 10/16/18 12:23 Dose: 667 mg Clonidine HCl (Catapres) 0.[address] [facility] Last Admin: 10/16/18 05:20 Dose: Not Given Clopidogrel Bisulfate (Plavix) [address] [facility] Last Admin: 10/16/18 10:00 Dose: Not Given Doxycycline Hyclate (Doryx) [address] [facility]; Protocol Last Admin: 10/16/18 09:43 Dose: 100 mg Cefepime HCl 1 gm/ Sodium (Chloride) 100 mls @ 200 mls/hr IVPB 2100 [facility]; Protocol Last Admin: 10/15/18 21:28 Dose: 200 mls/hr Metoprolol Tartrate (Lopressor) [address] [facility] Last Admin: 10/16/18 09:43 Dose: 25 mg - Labs Labs: 10/16/18 07:00 10/16/18 07:00 PT 12.1 SECONDS (9.4-12.5) 10/14/18 11:30 INR 1.07 10/14/18 11:30 APTT 26.1 Seconds (26.9-38.3) L 10/14/18 11:30 - Constitutional Appears: Non-toxic, No Acute Distress - Head Exam Head Exam: NORMAL INSPECTION, NORMOCEPHALIC - Eye Exam Eye Exam: Normal appearance, PERRL - ENT Exam ENT Exam: Mucous Membranes Moist - Neck Exam Neck Exam: Normal Inspection - Respiratory Exam Respiratory Exam: Decreased Breath Sounds, NORMAL BREATHING PATTERN - Cardiovascular Exam Cardiovascular Exam: +S1, +S2 - GI/Abdominal Exam GI & Abdominal Exam: Soft, Normal Bowel Sounds - Exam External exam: NORMAL EXTERNAL EXAM - Neurological Exam Neurological Exam: Alert, Awake, Oriented x3 Additional comments: [place] - Psychiatric Exam Psychiatric exam: Normal Affect, Normal Mood - Skin Skin Exam: Dry, Intact Assessment and Plan - Assessment and Plan (Free Text) Plan: ITS Impressions Chest X-Ray 10/14/18 11:57 IMPRESSION: Interval improvement without complete resolution of bilateral lower lobe infiltrates. Lung Scan Nuclear Medicine 10/14/18 11:58 IMPRESSION: Low probability ventilation perfusion scan for pulmonary embolism. A?P 78 yr old female with pmh sig for NSTEMI, moderate , ESRD on HD MWF now admitted with persistent cough and SALEH. Pt was found to have bilateral lower lobe infiltrates. Pt is maintained on IV antibiotics with ID consultations and recs noted. Pt had troponins elevated at 0.44, cardiology recs for right and left heart cath for Monday noted / in coordination with HD session. plan of care discussed with patient and IDT. will continue to follow clinical course BPCI/TIC - BPCIA/TIC Educated pt/family on BPCIA/CIR/Med to Bed Programs: Yes Flyers given, including [facility] Beneficiary letter: Yes Pt/family verbalized understanding & agreed to program: Yes (discuss with [employer] Ana Cristina)
[2018-10-16] MEDS ORDERED: Darbepoetin Alfa 60 mcg/ml Inj SC ONE (15:00)
[2018-10-16] MEDS ORDERED: Darbepoetin Alfa 100 mcg/ml Inj SC ONE (15:00)
--- NOTE | 2018-10-16 15:49 | PN ---
DATE: 10/16/2018 SUBJECTIVE: The patient is currently seen sitting up in bed on telemetry. She has no further coughing. No further hemoptysis. She is, however, receiving IV antibiotics for perhaps a residual to have bilateral pneumonia that she had back in 09/2018. Her V/Q scan was negative for pulmonary embolism. Her chest x-ray did show bilateral infiltrates, but significantly improved. Of note, the patient did have elevated cardiac enzymes and she is scheduled for cardiac catheterization for 10/19/2018. The patient ideally would like to go home and come back for the catheterization and stay in the hospital over the next several days. PHYSICAL EXAMINATION: INTAKE/OUTPUT. Intake is 1278. Output is 1000 mL with dialysis. VITAL SIGNS: Blood pressure is 125/62, pulse of 74, temperature 98.2 with a respiratory rate of 20. Pulse oxygen saturation is 98%. HEENT: Shows her to be normocephalic, atraumatic. Conjunctivae are pale. Sclerae are nonicteric. NECK: Supple. No neck vein distention. CARDIOPULMONARY: Shows a regular rate and rhythm with /MR/TR/AI. No S3. No S4. No rub. CHEST: Clear to auscultation and percussion. No rales, rhonchi or wheezing. ABDOMEN: Soft. Bowel sounds normal. No rebound, guarding or masses. EXTREMITIES: Show no lower extremity cyanosis, clubbing or edema. She has a working AV fistula of her upper extremity, positive thrill, positive bruit. LABORATORY DATA AND IMAGING: Admitting chest x-ray showed bilateral infiltrates significantly improved from her past chest x-ray, but without complete resolution of the infiltrates. Labs; CBC white blood cell count down from 7.5 to 4.2. Hemoglobin down from 9.1 to 8.2, platelet count is 161,000. Chemistries today showed normal electrolytes. BUN 38 with a creatinine of 5.9. Calcium was 9.4. No phosphorus level was done. Liver enzymes are normal. Troponins are elevated at 0.44. Albumin is 3.4. Procalcitonin is 0.16. Admitting lactate level was normal at 1.9. Microbiology; no cultures were sent. MEDICATIONS Medication list reviewed. The patient is on Brovana, clonidine, cefepime, doxycycline, DuoNeb, Lopressor, Norvasc, PhosLo, Plavix and Pulmicort Respules. ASSESSMENT AND PLAN: 1. Elevated troponin levels with possible non-ST myocardial infarction. The patient is scheduled for cardiac catheterization for 10/19/[address] Lopes. 2. Status post multilobar pneumonia back in 09/2018. The patient represents with cough, shortness of breath and blood-tinged sputum. No tai hemoptysis. X-ray showed resolving bilateral infiltrates, but not complete resolution. She does remain on antibiotic therapy. The patient would like to continue all antibiotic therapy and go home and return to the hospital in 3 days. 3. History of congestive heart failure. 4. History of left ventricular hypertrophy with mild cardiomyopathy. 5. History of moderate to severe aortic stenosis with mitral regurgitation/ tricuspid regurgitation/aortic insufficiency. 6. History of end-stage renal disease. The patient will continue Monday, Monday, Monday dialysis. 7. History of anemia secondary to chronic kidney disease, stable. The patient will receive Aranesp with her next dialysis. We will check her iron levels too. No history of secondary hyperparathyroidism. Check phosphorus level with her next dialysis. The patient will continue a renal diet and continue binder therapy. PLAN: 1. Awaiting decision of ID whether or not the patient may be discharged home on oral antibiotics in preparation for cardiac catheterization on 10/19/2018. 2. The patient is not discharged. She will receive dialysis in the hospital tomorrow. 3. Continue antihypertensive medication as the patient has a tendency toward hypertension. 4. Continue renal diet and phosphorus binders. 5. Continue cardiac catheterization. This will be followed by dialysis on 10/19/2018. Prakash Dunn MD
[2018-10-16] MEDS: Cefepime 1 GM in Sodium Chloride 0.9% 100 ML IVPB SCH (23:13)
--- NOTE | 2018-10-16 23:26 | PN ---
DATE: 10/16/2018 SUBJECTIVE: The patient is in bed, in no acute distress, was seen earlier today in room 267, bed 1. PHYSICAL EXAMINATION: VITAL SIGNS: Temperature is 98, blood pressure is 130/60, and respiratory rate of 20. HEENT: Unremarkable. NECK: Supple. LUNGS: Have decreased breath sounds. HEART: Normal S1 and S2. ABDOMEN: Soft. LABORATORY DATA: Laboratory examination reveals a white count of 4.2 and hemoglobin of 8. Chemistries: Creatinine is 5.9. Procalcitonin is 0.16. ASSESSMENT AND PLAN: This is a 78-year-old female with dyspnea secondary to healthcare-associated pneumonia versus heart failure, severe aortic stenosis, acute on chronic systolic heart failure. The case was discussed with Dr. Barbour. Currently on doxycycline and cefepime. Would complete with short course of antibiotics. May use oral doxycycline. Armen Levine MD
[2018-10-17] MEDS: Albuterol-Ipratrop 3 mg / 0.5 (3 ml) UD IH SCH ×4 (02:20→19:06)
[2018-10-17] MEDS: Arformoterol 15 mcg/2 ml Inh Sol IH SCH ×2 (08:01→19:07)
[2018-10-17 09:37] LABS: MEAN CELL VOLUME 98.4 fl (80.0-105.0); MEAN CORPUSCULAR HEMOGLOBIN 32.1 pg (25.0-35.0); MEAN CORPUSCULAR HGB CONC 32.7 g/dl (31.0-37.0); MEAN PLATELET VOLUME 9.7 fl (7.0-11.0); RBC 2.49 10^6/uL (3.5-6.1); RED CELL DISTRIBUTION WIDTH 13.7 % (11.5-14.5); WHITE BLOOD COUNT 3.7 10^3/uL (4.5-11.0)
[2018-10-17] MEDS ORDERED: Darbepoetin Alfa 40 mcg/ml Inj IVP ONE (09:57)
[2018-10-17] MEDS ORDERED: Doxercalciferol 4 mcg/2 ml Inj IV ONE (10:13)
--- NOTE | 2018-10-17 13:27 | PN ---
DATE: 10/17/2018 SUBJECTIVE: The patient has no complaints of any chest pain. No shortness of breath. No headaches. PHYSICAL EXAMINATION: VITAL SIGNS: Temperature 97.5, pulse is 77, blood pressure is 135/67 and respirations 18. GENERAL: The patient is lying in bed, flat, comfortable. HEENT: No oral lesion. Anicteric sclerae. Moist mucosa. NECK: No JVD, adenopathy, or thyromegaly. CARDIOVASCULAR: S1 and S2, regular. No murmurs, rubs, or gallops. LUNGS: Clear to auscultation bilaterally. No wheeze, rales, or rhonchi. ABDOMEN: Bowel sounds are positive, soft, nontender and nondistended. EXTREMITIES: No cyanosis, clubbing or edema. LABORATORY DATA: White count of 4.2 and hemoglobin 8.2. Creatinine is 5.9. ASSESSMENT: 1. Hospital acquired pneumonia. 2. Coronary artery disease. 3. Hypertension. 4. Secondary hyperparathyroidism. 5. Hemoptysis, resolved. 6. End-stage renal disease, on hemodialysis. 7. Hepatitis C. 8. Non-ST elevation myocardial infarction. 9. Left ventricular hypertrophy. 10. Aortic stenosis. PLAN: The patient is getting dialysis today. She was given a dose of Aranesp yesterday. She is on clonidine for her hypertension. She is on doxycycline for antibiotics as well as cefepime. The patient has blood cultures that are negative. The patient is on Norvasc for hypertension. She is going to continue with calcium acetate for her secondary hyperparathyroidism. She is on Plavix for coronary artery disease. She is on renal diet. I do read the note of the Infectious Disease. The patient will continue with IV antibiotics. Brodie Barbour MD
[2018-10-17] MEDS: Potassium Chloride 10 mEq ER Tab PO SCH (15:36)
--- NOTE | 2018-10-17 16:51 | PN ---
DATE: 10/17/2018 SUBJECTIVE: The patient is seen lying in bed. She is awake, she is alert, she is comfortable. She had dialysis earlier today. She denies any chest pain. She denies any shortness of breath. She reports that her cough is more at night. She is still coughing, she is still bringing up pinkish phlegm. PHYSICAL EXAMINATION: GENERAL: Elderly lady lying in bed. VITAL SIGNS: Blood pressure 151/70, heart rate 74, respiratory rate 18, temperature 98.4. HEENT: Normocephalic, atraumatic, positive pallor. NECK: Supple, no JVD. LUNGS: Bilateral equal air entry, bilateral rhonchi, prolonged expiration. CARDIAC: S1, S2, regular rate and rhythm, no murmur, no rub. ABDOMEN: Soft, nondistended, nontender, bowel sounds present. EXTREMITIES: No lower extremity edema. LABORATORY DATA: WBC 3.7, hemoglobin 8.0, hematocrit 24.5, platelets 157. Sodium 136, potassium 3.4 yesterday and today, phosphorus 3.7, magnesium 2.0, albumin 3.4. CURRENT MEDICATIONS: Doxycycline 100 mg every 12 hours, DuoNeb, Lopressor 25 mg every 12 hours, cefepime 1 g daily, amlodipine 10 mg, PhosLo 667 mg with meals, Plavix 75. ASSESSMENT: 1. Healthcare-associated pneumonia versus heart failure. 2. Severe aortic stenosis. 3. Severe hypertension. 4. End-stage renal disease. 5. Acute on chronic anemia. PLAN: 1. Antibiotics as per ID recommendations. 2. Stable dialysis earlier today. 3. Venofer 200 mg IV piggyback today. 4. Repeat H&H in a.m., KCL 20 mEq p.o. x1 dose now, cardiac cath on Monday. Marina Shelton MD
[2018-10-17] MEDS: Budesonide 0.5 mg/2 ml Inhal Susp UD IH SCH (19:07)
--- NOTE | 2018-10-18 00:08 | PN ---
DATE: 10/17/2018 SUBJECTIVE: The patient is in bed, in no acute distress. PHYSICAL EXAMINATION: VITAL SIGNS: , blood pressure of 151/70, respiratory rate of 18. HEENT: Unremarkable. NECK: Supple. LUNGS: Have decreased breath sounds. HEART: Normal S1 and S2. ABDOMEN: Soft and nontender. LABORATORY DATA: Reveals a white count of 3.7, hemoglobin of 8, platelets of 157. BUN of 38, creatinine of 5.9. Microbiology reveals the blood cultures were negative, MRSA is not detected. ASSESSMENT AND PLAN: A 78-year-old female with dyspnea secondary to healthcare-associated pneumonia versus heart failure, severe aortic stenosis, [id number] systolic heart failure. Currently on p.o. doxycycline and cefepime, day #3 of antibiotics. The patient's procalcitonin was 0.16. The patient's creatinine is 8.2. We will discontinue the cefepime and complete 4 to 7 days of doxycycline. Armen Levine MD
[2018-10-18] MEDS: Albuterol-Ipratrop 3 mg / 0.5 (3 ml) UD IH SCH ×4 (03:14→20:15)
[2018-10-18 06:55] LABS: BASO # 0.03 K/mm3 (0.0-2.0); BASO % 0.6 % (0.0-3.0); EOS # 0.1 (0.0-0.7); EOS % 2.4 % (1.5-5.0); HEMOGLOBIN 8.9 g/dL (12.0-16.0); LYMPH # 0.8 (1.2-3.4); LYMPH % 17.1 % (22.0-35.0); MEAN CELL VOLUME 99.3 fl (80.0-105.0); MEAN CORPUSCULAR HEMOGLOBIN 31.8 pg (25.0-35.0); MEAN PLATELET VOLUME 9.7 fl (7.0-11.0); MONO # 0.8 (0.1-0.6); MONO % 17.3 % (1.0-6.0); RBC 2.8 10^6/uL (3.5-6.1); RED CELL DISTRIBUTION WIDTH 13.7 % (11.5-14.5); WHITE BLOOD COUNT 4.6 10^3/uL (4.5-11.0)
[2018-10-18 07:24] LABS: CALCIUM 10.6 mg/dL (8.4-10.5)
[2018-10-18] MEDS: Arformoterol 15 mcg/2 ml Inh Sol IH SCH ×2 (07:30→20:15)
[2018-10-18] MEDS: Budesonide 0.5 mg/2 ml Inhal Susp UD IH SCH (07:30)
[2018-10-18] MEDS: Potassium Chloride 10 mEq ER Tab PO SCH (09:11)
--- NOTE | 2018-10-18 10:39 | CP.PCM.PCO ---
Physician Communication Note - Physician Communication Note Physician Communication Note: Planned cardiac cath thursday 10/19.
--- NOTE | 2018-10-18 21:45 | PN ---
DATE: 10/18/2018 SUBJECTIVE: The patient is seen lying in bed. She is awake. She is alert. She is comfortable. She does not complain of any pain or shortness of breath at present. She reports that she did have shortness of breath last night. PHYSICAL EXAMINATION: GENERAL: Elderly lady, sitting in chair. VITAL SIGNS: Blood pressure 158/78, heart rate 77, respiratory rate 18, temperature 97.6. HEENT: Normocephalic, atraumatic. Positive pallor. NECK: Supple. No JVD. LUNGS: Bilateral equal entry. Crackles, right base. CARDIAC: S1 and S2. Regular rate and rhythm. No murmur. No rub. ABDOMEN: Obese, distended, soft, nontender. Bowel sounds present. EXTREMITIES: No lower extremity edema. INTAKE AND OUTPUT: Not charted. LABORATORY DATA: WBC 4.6, hemoglobin 8.9, hematocrit 27.8, platelets 175. Sodium 137, potassium 5, chloride 101, CO2 of 24, BUN 34, creatinine 5.7, glucose 87, calcium 10.6, phosphorus 3.7, magnesium 2. CURRENT MEDICATIONS: List reviewed. ASSESSMENT: 1.. Cough, blood tinged sputum, shortness of breath likely secondary to decompensated congestive heart failure. 2. ? Healthcare-associated pneumonia. 3. End-stage renal disease. 4. Hypertension. 5. Anemia. 6. Secondary hyperparathyroidism. PLAN: 1. Agree with plan for cardiac catheterization tomorrow. 2. Dialysis post cath. 3. Continue current antihypertensives. 4. Continue phosphate binders. 5. Continue empiric antibiotics. Marina Shelton MD
--- NOTE | 2018-10-18 21:59 | PN ---
DATE: 10/18/2018 SUBJECTIVE: The patient is seen earlier today, in no acute distress, and nontoxic. OBJECTIVE: VITAL SIGNS: Temperature is 98, blood pressure is 150/70, and respiratory rate of 18. HEENT: Unremarkable. NECK: Supple. LUNGS: Have decreased breath sounds. HEART: Normal S1 and S2. ABDOMEN: Soft. LABORATORY EXAMINATION: Reveals a white count of 4.6, hemoglobin of 8.9, and platelets of 175. Chemistries reveal a BUN of 34, creatinine of 5.7, and procalcitonin is noted 0.16. ASSESSMENT AND PLAN: This is a 78-year-old female seen earlier today in [facility], bed 2, admitted with dyspnea secondary to healthcare-associated pneumonia versus congestive heart failure, volume overload, severe aortic stenosis, acute on chronic systolic heart failure, now off of antibiotics and intravenously only on p.o. doxycycline, today is day #4, complete 4-7 days of doxycycline and the cefepime has been discontinued. Armen Levine MD
--- NOTE | 2018-10-19 01:27 | PN ---
DATE: 10/18/2018 SUBJECTIVE: The patient is seen sitting in chair on 5R. She is comfortable at the present time. She states she does continue to have some orthopnea at times. She denies any chest pain. She is tentatively scheduled for right and left heart catheterization in the morning. CURRENT MEDICATIONS: Include Brovana, Catapres, doxycycline, DuoNeb inhaler, metoprolol 25 mg b.i.d., Norvasc 10 mg daily, PhosLo, Plavix 75 mg daily, and Pulmicort. OBJECTIVE: GENERAL: She is an elderly woman, who appears comfortable at present time. VITAL SIGNS: Blood pressure is 156/78 with a pulse of 76, respirations are 16. She is afebrile. HEENT: No JVD. Carotid upstrokes are diminished and delayed. CHEST: Few scattered rhonchi heard. HEART: PMI displaced laterally with a late-peaking systolic murmur at the base radiating to the carotid. Systolic murmur present at the left sternal border. ABDOMEN: Soft, nontender with normoactive bowel sounds. EXTREMITIES: No edema. DIAGNOSTIC DATA: Potassium 5. BUN and creatinine 34 and 5.7. White count 4.6, hemoglobin and hematocrit are 8.9 and 27.8 with a platelet count 175,000. IMPRESSION: 1. Moderately severe aortic stenosis. 2. Recent non-ST segment elevation myocardial fraction. 3. Left ventricular dysfunction. 4. Chronic renal failure, maintained on hemodialysis. 5. Recent pneumonia, clinically improved. RECOMMENDATIONS: The patient will undergo right and left heart catheterization and possible PCI in the morning. The risks and benefits of the procedure have been discussed in detail with the patient. She is agreeable to proceed. Further plans will be made based upon those findings. Shoaib Blevins MD
[2018-10-19] MEDS: Albuterol-Ipratrop 3 mg / 0.5 (3 ml) UD IH SCH ×3 (01:44→13:13)
[2018-10-19] MEDS: Budesonide 0.5 mg/2 ml Inhal Susp UD IH SCH ×2 (01:52→07:12)
--- NOTE | 2018-10-19 02:33 | PN ---
DATE: 10/18/2018 SUBJECTIVE: The patient has no complaints of any chest pain. No shortness of breath. No headaches or dizziness. PHYSICAL EXAMINATION: VITAL SIGNS: Temperature is 97.6, pulse of 77, blood pressure 150/78 and respirations 19. GENERAL: The patient is lying in bed, flat, comfortable. HEENT: No oral lesion. Anicteric sclerae. Moist mucosa. NECK: No JVD, adenopathy, or thyromegaly. CARDIOVASCULAR: S1 and S2, regular. No murmurs, rubs, or gallops. LUNGS: Clear to auscultation bilaterally. No wheeze, rales, or rhonchi. ABDOMEN: Bowel sounds are positive, soft, nontender and nondistended. EXTREMITIES: No cyanosis, clubbing or edema. ASSESSMENT: 1. Hospital acquired pneumonia. 2. Coronary artery disease. 3. Hypertension. 4. Secondary hyperparathyroidism. 5. Hemoptysis, resolved. 6. End-stage renal disease, on hemodialysis. 7. Hepatitis C. 8. Non-ST elevation myocardial infarction. 9. Left ventricular hypertrophy. 10. Aortic stenosis. PLAN: The patient is currently comfortable. She is waiting for cardiac cath to be done tomorrow. She is continuing with her hemodialysis. She is on Aranesp for her anemia. The patient is on doxycycline for antibiotics. She was given a dose of Hectorol. The patient is on amlodipine for hypertension. She is on PhosLo. She is going to be on renal diet. She is currently comfortable. She is not complaining of any shortness of breath. Brodie Barbour MD
[2018-10-19] MEDS ORDERED: Lidocaine PF 2% (5 ml) Inj (For Cardiac Arrhy) ONE (07:09)
[2018-10-19] MEDS ORDERED: Iodixanol 320 MG/ML 100 ML BOTTLE IV ONE (07:10)
[2018-10-19] MEDS ORDERED: Iohexol 350mgl/ml 50 ML ONE (07:10)
[2018-10-19] MEDS ORDERED: Iodixanol 320 MG/ML 200 ML BOTTLE IV ONE (07:10)
[2018-10-19] MEDS: Arformoterol 15 mcg/2 ml Inh Sol IH SCH (07:11)
[2018-10-19] MEDS ORDERED: Midazolam 2 MG/2 ML VIAL ONE (07:55)
[2018-10-19] MEDS ORDERED: Heparin25000 units/250ml 1/2NS 25,000 UNITS/250 ML BAG IV ONE (08:54)
[2018-10-19] MEDS ORDERED: Heparin25000 units/250ml 1/2NS 25,000 UNITS/250 ML BAG IV SCH (09:15)
--- NOTE | 2018-10-19 11:15 | CP.PCM.CON ---
<Alexi Valenzuela - Last Filed: 10/19/18 12:17> History of Present Illness - History of Present Illness History of Present Illness: PGY-2 ICU consult note for Dr Booth 78 year old female with past medical history of ESRD on HD M/W/F, CAD, mod- severe aortic stenosis, hypertension, chronic anemia, cardiomyopathy, hep C, who presented with shortness of breath and cough and hemoptysis. She was admitted approx 3 weeks ago for pneumonia and at that time she had an NSTEMI - plans were made for an elective catheterization after full recovery from her pneumonia. She again re-admitted to the hospital with the above mentioned sx. Dr Blevins made plans for right and left heart catheterization and possible PCI and possible intervention on her aortic valve. She is s/p cardiac cath today 10/19/18, she will have dialysis after the cath and will be monitored in the ICU. PMHx: ESRD on HD M/W/F, CAD, mod-severe aortic stenosis, hypertension, chronic anemia, cardiomyopathy, hep C PSHx: AV fistual in right arm Allergies: peanuts FamHx: significant for HTN SocialHx: denies smoking, alcohol Review of Systems - Review of Systems All systems: reviewed and no additional remarkable complaints except (as stated in HPI) Past Patient History - Infectious Disease Hx of Infectious Diseases: None - Past Social History Smoking Status: Never Smoked - CARDIAC Hx Hypertension: Yes Hx Pacemaker: No - PULMONARY Hx Respiratory Disorders: Yes - NEUROLOGICAL Hx Paralysis: No - HEENT Hx HEENT Problems: Yes Hx Cataracts: Yes (right eye) - RENAL Hx Chronic Kidney Disease: Yes Hx Dialysis: Yes (MWF) Date of Last Dialysis Treatment: 09/26/18 Hx Renal Failure: Yes - ENDOCRINE/METABOLIC Hx Endocrine Disorders: No - HEMATOLOGICAL/ONCOLOGICAL Hx Blood Transfusions: No Hx Blood Transfusion Reaction: No - INTEGUMENTARY Hx Dermatological Problems: No - MUSCULOSKELETAL/RHEUMATOLOGICAL Hx Musculoskeletal Disorders: No - GASTROINTESTINAL Hx Gastrointestinal Disorders: No - GENITOURINARY/GYNECOLOGICAL Hx Genitourinary Disorders: No - PSYCHIATRIC Hx Emotional Abuse: No Hx Physical Abuse: No Hx Substance Use: No - SURGICAL HISTORY Other/Comment: R AV Fistula for HD - ANESTHESIA Hx Anesthesia: Yes Hx Anesthesia Reactions: No Hx Malignant Hyperthermia: No Meds Allergies/Adverse Reactions: Allergies Allergy/AdvReac Type Severity Reaction Status Date / Time peanut Allergy Severe ANAPHYLAXIS Verified 10/14/18 11:21 - Medications Medications: Current Medications Albuterol/Ipratropium (Duoneb 3 Mg/0.5 Mg (3 Ml) Ud) 3 ml IH [id number] [facility] Last Admin: 10/19/18 07:12 Dose: Not Given Arformoterol Tartrate (Brovana) 15 mcg IH [id number] [facility] Last Admin: 10/19/18 07:11 Dose: Not Given Budesonide (Pulmicort Respules) 0.5 mg IH [id number] [facility] Last Admin: 10/19/18 07:12 Dose: Not Given Calcium Acetate (Phoslo) 667 mg PO WM [facility] Last Admin: 10/18/18 16:20 Dose: 667 mg Doxycycline Hyclate (Doryx) 100 mg PO Q12 [facility]; Protocol Last Admin: 10/18/18 21:39 Dose: 100 mg Heparin Sodium/Sodium Chloride (Heparin 95919 Units/250ml 1/2 Normal Saline) 25,000 units in 250 mls @ 7.158 mls/hr IV .Q24H [facility]; Protocol Metoprolol Tartrate (Lopressor) 25 mg PO Q12 [facility] Last Admin: 10/18/18 21:39 Dose: 25 mg Physical Exam - Constitutional Appears: Well, Non-toxic, No Acute Distress - Head Exam Head Exam: ATRAUMATIC, NORMAL INSPECTION - Eye Exam Eye Exam: EOMI, Normal appearance, PERRL. absent: Scleral icterus Pupil Exam: NORMAL ACCOMODATION - ENT Exam ENT Exam: Mucous Membranes Moist - Neck Exam Neck exam: Positive for: Normal Inspection - Respiratory Exam Respiratory Exam: Rales, NORMAL BREATHING PATTERN - Cardiovascular Exam Cardiovascular Exam: REGULAR RHYTHM, +S1, +S2. absent: Bradycardia, Tachycardia Additional comments: attached to balloon pump - GI/Abdominal Exam GI & Abdominal Exam: Normal Bowel Sounds, Soft. absent: Distended, Tenderness - Extremities Exam Extremities exam: Positive for: normal capillary refill, normal inspection, pedal pulses present - Neurological Exam Neurological exam: Alert, Oriented x3 - Psychiatric Exam Psychiatric exam: Normal Affect, Normal Mood - Skin Skin Exam: Intact, Normal Color, Warm Results - Vital Signs Recent Vital Signs: Last Vital Signs Temp 98.0 F 10/19/18 08:58 Pulse 68 10/19/18 08:58 Resp 19 10/19/18 08:58 BP 121/70 10/19/18 08:58 Pulse Ox 94 L 10/19/18 08:58 - Labs Result Diagrams: 10/19/18 11:30 10/19/18 11:30 Assessment & Plan - Assessment and Plan (Free Text) Plan: Mrs Lundy is a 78 year old female with past medical history of ESRD on HD M/W/F, CAD, mod-severe aortic stenosis, hypertension, chronic anemia, cardiomyopathy, hep C, who presented with shortness of breath and cough and hemoptysis. She is s/p right and left heart catheterization 10/19/18 with insertion of balloon pump, she will have dialysis after the cath and will be monitored in the ICU. Cardiovascular #s/p cardiac catheterization -insertion of balloon pump during cardiac cath -currently on heparin drip -lopressor 25mg po q12h -f/u echo -currently hemodynamically stable, clinically appears well -plans being made to transfer to [place], she has been accepted, she will have dialysis here before she is transferred -cardiology consulted, Dr Blevins #Mod-Severe Aortic Stenosis #Cardiomyopathy -probnp [id number] -f/u echo #NSTEMI -troponin 0.44 Infectious Disease Multifocal Pneumonia -admitted recently with pneumonia and discharged approx 09/29/18, returned with similar sx however presenting sx could be related to cardiac disease as well -completed course of empiric cefepime during this admission, currently on doxycycline 100mg po q12 -procalc 0.16, blood cx negative up to date -ID consulted, Dr Levine Renal #ESRD on HD MW -will have dialysis in-house later today -on phoslo 667mg po WM Pulmonary #Shortness of breath -likely 2/2 to recent pneumonia and underlying cardiac disease -continue home duoneb and budesonide 0.5mg IH q12h -v/q scan showed low probability of PE Neuro -AAOx3 -no neurological issues PPx: GI ppx not indicated. On heparin drip post cardiac cath. Dispo: Patient has been accepted for transfer to [place], patient will have dialysis in-house prior to transfer Seen and discussed with Dr Booth. <Jaison Booth - Last Filed: 10/19/18 15:24> Meds - Medications Medications: Current Medications Albuterol/Ipratropium (Duoneb 3 Mg/0.5 Mg (3 Ml) Ud) 3 ml IH [id number] [facility] Last Admin: 10/19/18 13:13 Dose: Not Given Arformoterol Tartrate (Brovana) 15 mcg IH [id number] [facility] Last Admin: 10/19/18 07:11 Dose: Not Given Budesonide (Pulmicort Respules) 0.5 mg IH [id number] [facility] Last Admin: 10/19/18 07:12 Dose: Not Given Calcium Acetate (Phoslo) 667 mg PO WM [facility] Last Admin: 10/19/18 12:25 Dose: Not Given Doxycycline Hyclate (Doryx) 100 mg PO Q12 [facility]; Protocol Last Admin: 10/19/18 11:24 Dose: 100 mg Heparin Sodium/Sodium Chloride (Heparin 12225 Units/250ml 1/2 Normal Saline) 25,000 units in 250 mls @ 7.158 mls/hr IV .Q24H [facility]; Protocol Acetaminophen (Ofirmev) 1,000 mg in 100 mls @ 400 mls/hr IVPB Q6H PRN PRN Reason: Pain, moderate (4-7) Stop: 10/21/18 15:15 Metoprolol Tartrate (Lopressor) 25 mg PO Q12 [facility] Last Admin: 10/19/18 11:13 Dose: 25 mg Results - Vital Signs Recent Vital Signs: Last Vital Signs Temp 98.0 F 10/19/18 08:58 Pulse 59 L 10/19/18 14:15 Resp 13 10/19/18 14:15 BP 154/89 H 10/19/18 14:15 Pulse Ox 100 10/19/18 14:15 - Labs Result Diagrams: 10/19/18 14:00 10/19/18 11:30 Labs: Laboratory Results - last 24 hr 10/19/18 10/19/18 10/19/18 11:30 11:30 11:30 WBC 3.7 L RBC 2.34 L Hgb 7.6 L Hct 23.2 L MCV 99.1 MCH 32.5 MCHC 32.8 RDW 13.8 Plt Count 139 MPV 9.2 Neut % (Auto) 56.8 Lymph % (Auto) 28.4 [place] % (Auto) 10.5 H Eos % (Auto) 3.2 Baso % (Auto) 1.1 Lymph # (Auto) 1.1 L [place] # (Auto) 0.4 Eos # (Auto) 0.1 Baso # (Auto) 0.04 Absolute Neuts (auto) 2.12 APTT 232.8 H* Plt P2Y12 React Units Sodium 135 Potassium 5.2 H Chloride 101 Carbon Dioxide 22 Anion Gap 17 BUN 58 H Creatinine 8.4 H* D Est GFR ( Amer) 6 Est GFR (Non-Af Amer) 5 Random Glucose 81 Calcium 9.7 Phosphorus 5.5 H Magnesium 2.2 Total Bilirubin 0.3 AST 26 ALT 14 Alkaline Phosphatase 113 Total Protein 6.2 Albumin 3.2 Globulin 3.0 Albumin/Globulin Ratio 1.0 L 10/19/18 10/19/18 11:30 14:00 WBC 3.6 L RBC 2.43 L Hgb 7.9 L Hct 23.9 L MCV 98.4 MCH 32.5 MCHC 33.1 RDW 13.7 Plt Count 149 MPV 9.7 Neut % (Auto) Lymph % (Auto) [place] % (Auto) Eos % (Auto) Baso % (Auto) Lymph # (Auto) [place] # (Auto) Eos # (Auto) Baso # (Auto) Absolute Neuts (auto) APTT Plt P2Y12 React Units 331 Sodium Potassium Chloride Carbon Dioxide Anion Gap BUN Creatinine Est GFR ( Amer) Est GFR (Non-Af Amer) Random Glucose Calcium Phosphorus Magnesium Total Bilirubin AST ALT Alkaline Phosphatase Total Protein Albumin Globulin Albumin/Globulin Ratio Attending/Attestation - Attestation I have personally seen and examined this patient.: Yes I have fully participated in the care of the patient.: Yes I have reviewed all pertinent clinical information: Yes Notes (Text): 10/19/18 15:15 78 yo female with high grade lesion in left main CA, besides lesions in LAD and RCA. Had AOBP placed and expecting transfer to [facility]. Hemodynamically and respiratory stable. Moderate tenderness in the right groin area, some oozing. Hb is stable at 7.9, BP is slightly up. not tachycardic. will give Ofirmev PRN not to exceed 3 gm a day. not in respiratory or otherwise distress. ccm time 40 min,
[2018-10-19 11:48] LABS: BASO # 0.04 K/mm3 (0.0-2.0); BASO % 1.1 % (0.0-3.0); EOS # 0.1 (0.0-0.7); EOS % 3.2 % (1.5-5.0); HEMOGLOBIN 7.6 g/dL (12.0-16.0); LYMPH # 1.1 (1.2-3.4); LYMPH % 28.4 % (22.0-35.0); MEAN CELL VOLUME 99.1 fl (80.0-105.0); MEAN CORPUSCULAR HEMOGLOBIN 32.5 pg (25.0-35.0); MEAN CORPUSCULAR HGB CONC 32.8 g/dl (31.0-37.0); MEAN PLATELET VOLUME 9.2 fl (7.0-11.0); MONO # 0.4 (0.1-0.6); MONO % 10.5 % (1.0-6.0); RBC 2.34 10^6/uL (3.5-6.1); RED CELL DISTRIBUTION WIDTH 13.8 % (11.5-14.5); WHITE BLOOD COUNT 3.7 10^3/uL (4.5-11.0)
--- NOTE | 2018-10-19 11:49 | CARD ---
APPROVED REPORT Date of service: 10/19/2018 EXAM: Two-dimensional and M-mode echocardiogram with Doppler and color Doppler. 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 No signficant pericardial effusion visualized. Moderately reduced LV systolic function with anteroseptal hypokinesis. Moderately severe noted.
--- NOTE | 2018-10-19 11:51 | CARDCATH ---
PROCEDURE DATE: 10/19/2018 PROCEDURES: 1. Selective left and right coronary angiography. 2. Right and left heart catheterization. 3. Left ventriculography. 4. Right femoral arteriography. 5. Intra-aortic balloon pump insertion. HISTORY: This is a 78-year-old woman with a history of chronic renal failure and aortic stenosis as well as a recent awn-PY-[id number] elevation myocardial infarction. Cardiac catheterization was advised to determine her anatomy and plan appropriate treatment options. INDICATION: Xlr-EF-hviwjzd elevation myocardial infarction and aortic stenosis. PROCEDURE: Arteriovenous access was obtained from the right femoral artery and vein respectively with a 6-Colombian arterial sheath and 7-Colombian venous sheath. Conscious sedation was administered with a total of 2 mg of Versed and 100 mg of fentanyl. Procedure began at 7:51 with initial sedation and then today at 9:03 a.m. The patient was monitored continuously under my supervision. HEMODYNAMICS: Right heart pressures were as follows. The RA mean pressure was 7. RV pressure was 50/2. The PA pressure was 50/18. The pulmonary catheter wedge pressure was 20. The cardiac output by thermodilution method was 4.9 meters per minute with cardiac index of 3.1 liters per minute per meter square. The left ventricular pressure was 160/15 with a simultaneous aortic pressure of 130/60. A 30-mm aortic valve gradient was noted. Based upon modified Gorlin formula, calculated aortic valve area was 0.9 square centimeters. CORONARY ANATOMY: 1. The left mainstem was moderately calcified. The vessel was large with mild ostial tapering. There was a 95% stenosis in the very distal segment of the left mainstem. 2. Left anterior descending artery was also moderate to severely calcified with evidence of a 50% proximal stenosis as well as complex 95% stenosis in the early mid segment of vessel. The diagonal branches were moderate size and free of disease. The distal LAD was a moderate size vessel which wrapped around the apex with no evidence of significant obstructive stenosis. 3. The left circumflex artery was fairly small and gave rise to one obtuse marginal branch. The circumflex artery had mild disease. 4. The right coronary artery was large and dominant. This was moderate to heavily calcified in its proximal mid segments. There was diffuse 40% stenosis in the proximal RCA. The PDA and PLV branches had mild diffuse disease. LEFT VENTRICULOGRAPHY: A hand injection was performed in the left ventricle. Imaging was suboptimal as the catheter was positioned in the lower portion of the ventricle. A hand injection only was performed. Overall ejection fraction appear to be in the 40% to 45% range with probable anterolateral hypokinesis, however, imaging was suboptimal. There have been a good deal of difficulty in crossing the aortic valve with a catheter and further catheter manipulation was avoided. With hand injection, there appeared to be evidence of wire perforation at the left ventricle with some flow of contrast into the pericardium. The patient remained hemodynamically stable. An echocardiogram was ordered emergently and this showed no evidence of significant pericardial effusion. LEFT FEMORAL ARTERIOGRAPHY: A left femoral arteriogram was performed in the STALLINGS projection. This revealed evidence of moderate vessel calcification and appropriate level of arterial puncture. Given her left main, LV dysfunction and aortic stenosis decision made to place an aortic balloon pump. The arterial sheath was exchanged for 7-Colombian sheath and an intra-aortic balloon pump was placed under fluoroscopic guidance and positioned in place appropriately and the device was sutured in place. Adequate augmentation was noted. The venous sheath was also sutured in place for maintenance of access as needed. A total of 95 mL of Visipaque contrast was utilized. CONCLUSION: 1. Severe left main and LAD disease. 2. Mild to moderate RCA disease. 3. Mild to moderately reduced LV systolic function. 4. Moderately severe aortic stenosis. RECOMMENDATIONS: Given the above findings, urgent coronary bypass surgery and aortic valve replacement has been advised. The patient was transferred to the CCU and arrangements are being made for transfer to [facility] for revascularization and aortic valve replacement. The patient did receive Plavix earlier in the week and a platelet reactivity test will be performed. The patient was started on IV heparin as well. All the above was discussed with Dr Barbour as well as Dr. Booth, an credentialing manager, and the patient's daughter, Leeanne via phone. The patient's condition is extremely guarded at this time. Shoaib Blevins MD [id number]
[2018-10-19 12:04] LABS: ALBUMIN 3.2 g/dL (3.0-4.8); CALCIUM 9.7 mg/dL (8.4-10.5)
[2018-10-19 14:09] LABS: HEMOGLOBIN 7.9 g/dL (12.0-16.0); MEAN CELL VOLUME 98.4 fl (80.0-105.0); MEAN CORPUSCULAR HEMOGLOBIN 32.5 pg (25.0-35.0); MEAN CORPUSCULAR HGB CONC 33.1 g/dl (31.0-37.0); MEAN PLATELET VOLUME 9.7 fl (7.0-11.0); RBC 2.43 10^6/uL (3.5-6.1); RED CELL DISTRIBUTION WIDTH 13.7 % (11.5-14.5); WHITE BLOOD COUNT 3.6 10^3/uL (4.5-11.0)
[2018-10-19 14:20] VITALS: O2SAT 100
--- NOTE | 2018-10-19 15:17 | PN ---
DATE: 10/19/2018 SUBJECTIVE: The patient is seen earlier this morning in room 561, bed 2. She is complaining of weakness. She is awake. Now the patient is in the ICU 128, bed 3. The patient with a history of end-stage renal disease on hemodialysis, coronary artery disease, aortic stenosis, hypertension, anemia, cardiomyopathy, hepatitis C and status post cardiac catheterization insertion of the balloon pump cardiac cath on heparin drip in the unit currently on doxycycline. The patient on completely meropenem therapy, dyspnea secondary to healthcare-associated pneumonia versus congestive heart failure, aortic stenosis, acute on chronic systolic failure and is completed meropenem and now on doxycycline day #5. We will follow with you. Armen Levine MD
--- NOTE | 2018-10-19 16:16 | DS ---
HISTORY OF PRESENT ILLNESS: This is a 78-year-old female who is coming to the hospital complaining of shortness of breath. The patient had dialysis and had some improvement in her symptoms. She had non-ST elevation KS and so she had cardiac catheterization that was done today. She has left main disease and will most likely need surgery according to Dr. Blevins that I spoke with. The patient was also found to have hospital-acquired pneumonia that is improved and she has received antibiotics for the last 5 days. She is going to be discharged to [facility] for surgical intervention. PHYSICAL EXAMINATION: VITAL SIGNS: Temperature is 97.5, pulse is 66, blood pressure 135/72 and respirations 18. GENERAL: The patient is lying in bed, flat, comfortable. HEENT: No oral lesion. Anicteric sclerae. Moist mucosa. NECK: No JVD, adenopathy, or thyromegaly. CARDIOVASCULAR: S1 and S2, regular. No murmurs, rubs, or gallops. LUNGS: Clear to auscultation bilaterally. No wheeze, rales, or rhonchi. ABDOMEN: Bowel sounds are positive, soft, nontender and nondistended. EXTREMITIES: No cyanosis, clubbing or edema. LABORATORY DATA: White count of 4.6 and hemoglobin 8.9. Sodium is 137 and creatinine is 5.7. ASSESSMENT: 1. Coronary artery disease, worsening. 2. Non-ST elevation myocardial infarction. 3. Hospital-acquired pneumonia. 4. Hypertension. 5. Secondary hyperparathyroidism. 6. Hemoptysis, resolved. 7. End-stage renal disease on hemodialysis Monday, Monday and Monday. 8. Hepatitis C. 9. Left ventricular hypertrophy. 10. Aortic stenosis. PLAN: The patient is currently on Klonopin for hypertension. She is on doxycycline for antibiotics. The patient is going to continue with Norvasc for hypertension. She is on PhosLo for secondary hyperparathyroidism. The patient is going to continue with Plavix. She is on renal diet. She is going to be discharged to [facility] for Surgery. CONDITION: Stable. ACTIVITIES: Bedrest. FOLLOWUP: With Dr. Barry in 1 to 2 weeks after discharge. Brodie Barbour MD
[2018-10-19 16:19] VITALS: TEMP 97.8
[2018-10-19 16:22] LABS: BASO # 0.05 K/mm3 (0.0-2.0); BASO % 1.6 % (0.0-3.0); EOS # 0.1 (0.0-0.7); EOS % 3.8 % (1.5-5.0); HEMOGLOBIN 8.5 g/dL (12.0-16.0); MEAN CELL VOLUME 98.1 fl (80.0-105.0); MEAN CORPUSCULAR HEMOGLOBIN 32.8 pg (25.0-35.0); MEAN CORPUSCULAR HGB CONC 33.5 g/dl (31.0-37.0); MEAN PLATELET VOLUME 9.7 fl (7.0-11.0); MONO # 0.3 (0.1-0.6); MONO % 9.7 % (1.0-6.0); RBC 2.59 10^6/uL (3.5-6.1); RED CELL DISTRIBUTION WIDTH 13.6 % (11.5-14.5); WHITE BLOOD COUNT 3.2 10^3/uL (4.5-11.0)
--- NOTE | 2018-10-19 17:19 | PN ---
DATE: 10/19/2018 SUBJECTIVE: The patient was seen lying in bed in the CCU. She underwent cardiac catheterization earlier today revealing evidence of severe distal left main disease, severe LAD disease, and moderately severe aortic stenosis. An intraaortic balloon pump was placed for stabilization. She is currently comfortable. She claims to have dry mouth, but otherwise is resting comfortably. She denies any chest pain. Her current medications include IV heparin, Brovana, doxycycline, DuoNeb inhaler, metoprolol 25 mg every 12 hours, PhosLo, and Pulmicort. PHYSICAL EXAMINATION: GENERAL: She is an elderly woman who is comfortable at rest. VITAL SIGNS: Her blood pressure is 120/70 with augmentation to 140 and mean pressure of 86. Her pulse is 62 and regular and sinus, respirations are 14. She is afebrile. HEENT: No JVD. CHEST: Clear to auscultation anteriorly. HEART: Systolic murmur is present at the base rate to the carotids. Soft systolic murmur is present in the lower left sternal border. ABDOMEN: Soft and nontender with normoactive bowel sounds. EXTREMITIES: Intact distal pulses, no edema. DIAGNOSTIC DATA: Morning blood work is pending. IMPRESSION: 1. Recent [id number] elevation myocardial infarction with severe left main and severe left anterior descending disease. 2. Kohn-gs-wdjggrea reduced left ventricular systolic function. 3. Moderately severe aortic stenosis. 4. Chronic renal failure, maintained on hemodialysis. 5. History of hypertension. RECOMMENDATIONS: Given her anatomy, plans are being made for urgent transfer for coronary bypass surgery and aortic valve replacements. Dr. Nunez, cardiothoracic surgeon at [facility] was contacted and arrangements were being made for transfer to the CCU there. Her Plavix has been kept on hold. A platelet reactivity testing will be performed this morning as well. The patient is scheduled for dialysis early this afternoon either here or at [facility]. The results of her catheterization and recommendations have been discussed again with the patient as well as her daughter at the bedside. The CCU fellow at [facility] was contacted and given an update regarding her status. I will continue to provide followup, both here and at [facility] once transferred. Shoaib Blevins MD [facility] # [id number]
[2018-10-19 19:55] VITALS: BP 150/59; RESP 37
[2018-10-20 01:23] VITALS: PULSE 67
--- NOTE | 2018-10-22 09:39 | PN ---
DATE: 10/19/2018 SUBJECTIVE: The patient is seen in the ICU. She is awake, she is alert. She is somewhat groggy. She underwent cardiac cath this morning. She was found to have severe left main and left LAD disease, [id number] RCA disease, mild to moderately reduced LV systolic function, moderately severe aortic stenosis. Recommendation is for urgent coronary bypass. The patient was hence transferred to the ICU. Currently, she denies any chest pain. She denies any shortness of breath. PHYSICAL EXAMINATION: GENERAL: Examination elderly lady lying in bed in the ICU in mild respiratory distress. VITAL SIGNS: Blood pressure 154/89, heart rate 59, respiratory rate 13, temperature 98. HEENT: Normocephalic, atraumatic, positive pallor. NECK: Supple, no JVD. LUNGS: Bilateral equal entry, bilateral rhonchi, basilar rales, more on the right base. CARDIAC: S1 and S2, regular rate and rhythm, positive murmur, no rub. ABDOMEN: Soft, nondistended, nontender, bowel sounds present. EXTREMITIES: No lower extremity edema. INTAKE AND OUTPUT: Not charted. LABORATORY DATA: WBC 3.6, hemoglobin 7.9, hematocrit 24, platelets 149. Sodium 135, potassium 5.2, chloride 101, CO2 of 22, BUN 58, creatinine 8.4, glucose 81, calcium 9.7, phosphorus 5.5, magnesium 2.2, albumin 3.2. CURRENT MEDICATIONS: Doxycycline 100 every 12 hours, DuoNeb, heparin at 12 units/kg per hour, Lopressor 25 every 12 hours, PhosLo, Pulmicort. ASSESSMENT: 1. Severe coronary artery disease, left main disease, and severe left anterior descending disease. 2. Lfcftjhe-ud-dmpgko aortic stenosis. 3. Decompensated congestive heart failure. 4. Severe hypertension. 5. End-stage renal disease. 6. Severe anemia. 7. Hyperkalemia. 8. Secondary hyperparathyroidism. PLAN: 1. Dialysis in the ICU. 2. Consider blood transfusion. 3. Plan is for transfer to [facility] for urgent coronary bypass and valve replacement. 4. Case discussed with ICU staff at length. 5. Case discussed with dialysis staff. 6. Case discussed with daughter at length. 7. Case discussed with the patient at bedside at length. More than 35 minutes are spent in the care coordination of this critically ill patient with advanced CAD. Marina Shelton MD
== END 2018-10-19 19:55 | disposition short-term general hospital (02) | DRG 270 ==
LOC: ED 11:12 → ERH 17:20 → 2RNO 18:41 → OBSVTOIN 10-15 12:59 → 5RNO 10-16 19:20 → ICU 10-19 09:50
PROVIDERS: ADMIT Internal Medicine; ATTEND Internal Medicine Nephrology
PROC: 5A1D70Z Performance of Urinary Filtration, Intermittent, Less than 6 Hours Per Day (ICD-10-PCS; 2018-10-15)
PROC: 5A1D70Z Performance of Urinary Filtration, Intermittent, Less than 6 Hours Per Day (ICD-10-PCS; 2018-10-17)
PROC: 4A023N8 Measurement of Cardiac Sampling and Pressure, Bilateral, Percutaneous Approach (ICD-10-PCS; principal; 2018-10-19)
PROC: 5A02210 Assistance with Cardiac Output using Balloon Pump, Continuous (ICD-10-PCS; 2018-10-19)
PROC: B2151ZZ Fluoroscopy of Left Heart using Low Osmolar Contrast (ICD-10-PCS; 2018-10-19)
PROC: B2111ZZ Fluoroscopy of Multiple Coronary Arteries using Low Osmolar Contrast (ICD-10-PCS; 2018-10-19)
DX: I21.4 Non-ST elevation (NSTEMI) myocardial infarction (principal); J18.1 Lobar pneumonia, unspecified organism; I50.23 Acute on chronic systolic (congestive) heart failure; N18.6 End stage renal disease; I13.2 Hypertensive heart and chronic kidney disease with heart failure and with stage 5 chronic kidney disease, or end stage renal disease; R04.2 Hemoptysis; N25.81 Secondary hyperparathyroidism of renal origin; I42.9 Cardiomyopathy, unspecified; I25.10 Atherosclerotic heart disease of native coronary artery without angina pectoris; B19.20 Unspecified viral hepatitis C without hepatic coma; D63.1 Anemia in chronic kidney disease; E87.5 Hyperkalemia; I08.3 Combined rheumatic disorders of mitral, aortic and tricuspid valves; J45.909 Unspecified asthma, uncomplicated; Y95 Nosocomial condition; Z79.02 Long term (current) use of antithrombotics/antiplatelets; Z99.2 Dependence on renal dialysis; Z86.73 Personal history of transient ischemic attack (TIA), and cerebral infarction without residual deficits; Z79.51 Long term (current) use of inhaled steroids